=== PATIENT | female | born 1945 | race Caucasian/White ===

== ENCOUNTER → 2019-06-15 18:22 | Outpatient (CLI) | payer MEDICARE, SELFPAY ==
[2019-06-04 09:49] VITALS: BMI 26.9
--- NOTE | 2019-06-15 18:29 | CT_ITS ---
STUDY: LOW DOSE CT LUNG CANCER SCREENING REASON FOR EXAM: Female, 74 years old. 32YR SMOKER 1-2 PPD-QUIT 25YR AGO RADIATION DOSAGE (If Supplied By Facility): CTDIvol = ( 2.01 ) mGy, DLP = ( 65.70 ) mGycm TECHNIQUE: No contrast was administered. Low dose technique was utilized (average mAS-38 and kVp 120). 1.25 mm axial source images with a slice interval of 1.25-mm were reconstructed in lung windows. 2.5 mm axial source images with a slice interval of 2.5-mm were reconstructed in lung windows. 5.0 mm axial source images with a slice interval of 5.0-mm were reconstructed in soft tissue windows. Nodule measured using lung windows on PACS and/or independent workstation with automated measurement of minimum and maximum diameter. Nodule measurement reported as average diameter rounded to the nearest whole number. Growth is defined as an increase ins size of greater than 1.5 mm. COMPARISON: None. NODULES: Lungs and pleura: Both lungs are hyperinflated compatible with COPD. No visualized cystic emphysematous changes on the current study. Suspicion is slightly thickened throughout both lungs. A small irregular focus of scarring and calcification is present just beneath the pleural and apex of the left upper lobe. Clear lung william bilaterally. No acute infiltrates or nodules. No effusions. Mediastinum and pulmonary tao: No mass or adenopathy. Left coronary artery mild to moderate calcifications are present. Heart and great vessels: Normal heart size. No pericardial effusion. No aneurysms. Mild atherosclerotic calcifications of the aortic arch are present. Skeletal structures and chest wall: Unremarkable. Degenerative changes are present in the spine. Upper abdomen: Not optimized for soft tissue evaluation however no significant abnormality is visualized. CT/Low Dose CT Lung Screening IMPRESSION: 1. COPD 2. Lung-RADS category 1 - Continue annual screening with LDCT in 12 months. IMPORTANT NOTES FOR USE: ACR Lung-RADS Version 1.0 Assessment Categories Release Date: November 09, 2013 Category: Coded 0-4 bases on nodule(s) with highest degree of suspicion. Negative screen is defined as categories 1 and 2; a positive screen is defined as categories 3 and 4. Category 3 and 4A nodules that are unchanged on interval CT should be coded as category 2, and individuals returned to screening in 12 months. Category 4X: Category 3 or 4 nodules with additional imaging findings that increase the suspicion of lung cancer, such as spiculation, GGN that doubles in size in 1 year, enlarged lymph notes, etc. Category Modifiers: S (significant finding unrelated to lung cancer) and C (prior history of treated lung cancer) may be added to the 0-4 Lung-RADS Electronically Signed: Brett Cyr MD at 13:49 EST , Service support ,
== END ==
PROVIDERS: Visit Provider Internal Medicine Critical Care Medicine
DX: R05 Cough (principal); Z87.891 Personal history of nicotine dependence
CPT/HCPCS: G0297

== ENCOUNTER → 2019-06-30 08:54 | Outpatient (CLI) | payer MEDICARE, SELFPAY ==
[2019-06-04 09:49] VITALS: BMI 26.9
--- NOTE | 2019-07-01 09:22 | PFT ---
INTRODUCTION: The patient is a 74-year-old female that presents for pulmonary function studies secondary to a diagnosis of cough. Respiratory therapy reports good patient effort. Bronchodilators were used during testing. INTERPRETATION: Forced expiration spirometry demonstrates the presence of a mild large airways obstructive ventilatory defect. There was no significant response to aerosolized bronchodilators. Spirograms are of fair quality and plateau gradually indicating slow emptying of the lungs. Body plethysmography was performed and revealed an elevated TLC and RV. Diffusing capacity by single breath CO is within normal limits. IMPRESSION: Irreversible mild large airways obstructive ventilatory defect with associated hyperinflation, air trapping and preserved diffusing capacity.
== END ==
PROVIDERS: Referring Provider Internal Medicine Critical Care Medicine; Visit Provider Internal Medicine Critical Care Medicine
DX: R05 Cough (principal); Z87.891 Personal history of nicotine dependence
CPT/HCPCS: 94060; 94726; 94729

== ENCOUNTER → 2019-07-22 16:59 | Outpatient (CLI) | payer MEDICARE, SELFPAY ==
[2019-06-04 09:49] VITALS: BMI 26.9
[2019-07-22 17:17] LABS: Absolute Lymphocyte Count 1.69 X10^3/uL (0.83-4.51); Absolute Neutrophil Count 4.1 X10^3/uL (2.0-7.7); Basophil# 0.04 X10^3/uL; Basophil% 0.6 % (0-1); Eosinophil# 0.16 X10^3/uL; Eosinophils% 2.4 % (0-5); Hematocrit 39.2 % (37-47); Hemoglobin 12.5 g/dL (12.0-15.0); Lymphocyte # 1.69 X10^3/ul (4.0); Lymphocyte % 25.8 % (19-41); Mean Corp Hgb Conc 31.9 g/dL (32-36); Mean Corpuscular Hgb 27.4 pg (27.0-32.0); Mean Platelet Vol. 9.3 fl (6.2-12.0); Monocyte# 0.57 X10^3/uL; Monocyte% 8.7 % (0-10); NRBC Flagged by Analyzer 0 % (0-5); Neutrophil # 4.07 X10^3/uL (2.7-7.7); Neutrophil % 62.3 % (47-70); POSITIVE MORPHOLOGY YES; Platelet Count 325 K/mm3 (150-450); RBC Distribution Width CV 14.2 % (11.6-14.6); RBC Distribution Width SD 44.7 fl (35.1-43.9); Red Blood Count 4.56 M/mm3 (4.2-5.4); White Blood Count 6.5 K/mm3 (4.4-11.0)
[2019-07-22 17:20] LABS: Differential Indicated SCAN CRITERIA MET
[2019-07-22 17:40] LABS: Differential Comment SCANNED
[2019-07-22 17:48] LABS: AST(SGOT) 26 U/L (15-37); Alanine Aminotransfer ALT/SGPT 35 U/L (13-56); Albumin, Serum 3.9 g/dL (3.2-5.0); Alkaline Phosphatase 101 U/L (45-117); Anion Gap 6 (5-15); BUN 14 mg/dL (7-18); BUN/Creat Ratio 22.2 RATIO (10-20); CRP < 2.90 mg/L (0.0-3.0); Calcium,Total 9.4 mg/dL (8.5-10.1); Chloride 106 mmol/L (98-107); Creatinine, Serum 0.63 mg/dL (0.55-1.02); EST Glomerular Filtration Rate 98 mL/min (>60); Est Glom Filt Rate - Afr Amer 118 mL/min (>60); Globulin 3.9 g/dL (2.2-4.2); Glucose 90 mg/dL (74-106); Potassium 3.7 mmol/L (3.5-5.1); Protein, Total 7.8 g/dL (6.4-8.2); Sodium Level 138 mmol/L (136-145)
[2019-07-23 09:47] LABS: Hepatitis C Antibody Non-Reactive (Nonreactive)
== END ==
PROVIDERS: Visit Provider Family Medicine Geriatric Medicine
DX: R07.9 Chest pain, unspecified (principal); R53.83 Other fatigue; Z13.89 Encounter for screening for other disorder
CPT/HCPCS: 36415; 80053; 84443; 85025; 86140; 86803

== ENCOUNTER → 2019-07-30 13:44 | Outpatient (CLI) | payer MEDICARE, SELFPAY ==
[2019-06-04 09:49] VITALS: BMI 26.9
--- NOTE | 2019-07-30 13:48 | BI_ITS ---
MAMMOGRAPHY - BILATERAL DIAGNOSTIC REASON FOR EXAM: Female, 74 years old. Six-month follow-up examination for calcification in the right breast. PERTINENT HISTORY: Non-contributory. TECHNIQUE: Digital bilateral breast mike (3D mammographic acquisition) in the CC and MLO projections. 2-D mediolateral oblique (MLO) and craniocaudad (CC) views of both breasts were obtained. CAD: Full Field Digital Mammography with Computer Added Detection was performed. COMPARISON: Comparison is made with prior outside examination dated February 04, 2019. FINDINGS: Breast Composition: There are scattered areas of fibroglandular density. There are no dominant masses or suspicious calcifications. Stable 4.1 mm calcified nodule in the inferior central portion of the right breast in keeping with a calcified fibroadenoma. No other significant abnormalities are identified. There has been no significant change since the prior study. BI/DIAG MAMM W/CAD, BILAT IMPRESSION: Stable bilateral diagnostic mammogram. One year follow-up recommended. (A) ASSESSMENT CATEGORY: BIRADS Category 2: Benign. A letter regarding these results will be sent to the patient by the facility within 30 days. Approximately 10% of breast cancers are not detected by mammography. A normal mammogram should not delay biopsy of a clinically suspicious abnormality. Electronically Signed: Nikolay Chance, at 15:04 EST , Service support ,
== END ==
PROVIDERS: Referring Provider Family Medicine Geriatric Medicine; Visit Provider Family Medicine Geriatric Medicine
DX: N63.41 Unspecified lump in right breast, subareolar (principal)
CPT/HCPCS: 77062; 77066; G0279

== ENCOUNTER → 2019-10-07 14:09 | Outpatient (CLI) | payer MEDICARE, SELFPAY ==
[2019-06-04 09:49] VITALS: BMI 26.9
[2019-08-28 06:19] VITALS: BMI 29.5
--- NOTE | 2019-10-07 15:29 | NEURO ---
NCS and/or EMG Patient Report Ordering Doctor: Esteban Casey Chi DATE OF SERVICE: 10/07/19 Nichol Hernandez is a 74-year-old female presents for electrodiagnostic testing of the upper limbs. She reports numbness and tingling in both hands, worse on the left side. Electrodiagnostic findings: Right median motor nerve demonstrates prolonged distal latency with reduced amplitude and conduction velocity. Left median motor nerve demonstrates prolonged distal latency with normal amplitude and reduced conduction velocity. There is an approximately 60% drop in right median conduction in comparison to the left side. Ulnar motor response is normal bilaterally. Prolonged right median F-wave. Prolonged median sensory latency at the wrist bilaterally. Prolonged median palmar latency bilaterally. On needle EMG, all muscles tested in the upper limb showed no evidence of denervation with normal motor unit action potentials. Electrodiagnostic assessment: This is an abnormal study in the upper limbs 1. Electrodiagnostic findings demonstrate bilateral median mononeuropathy. This is consistent with a moderate left carpal tunnel syndrome and an advanced right carpal tunnel syndrome. 2. No electrodiagnostic evidence is noted for cubital tunnel syndrome. 3. No electrodiagnostic evidence noted for cervical radiculopathy. If there are any further questions, please do not hesitate to contact me.
== END ==
PROVIDERS: PCP Family Medicine Geriatric Medicine; Referring Provider Family Medicine Geriatric Medicine; Visit Provider Family Medicine Geriatric Medicine
DX: R20.0 Anesthesia of skin (principal)
CPT/HCPCS: 95886; 95912

== ENCOUNTER 2019-12-24 12:30 | Outpatient (RCR) | payer MEDICARE, SELFPAY ==
[2019-08-28 06:19] VITALS: BMI 29.5
--- NOTE | 2019-09-16 13:50 | HP.PTEVAL ---
Patient's Visit Information YOBANI QUINTANILLA is a 74 year old F referred to Physical Therapy by Esteban Casey MD with a diagnosis of Shoulder and Hip Pain. Date of Evaluation: 09/16/19 Physical Therapist: Blanca Germain DPT - Visit Plan Frequency: 2x /Week Duration: 4 Weeks Plan: Focus on scapular and core strength/ stabilization with UE and LE strengthening as well - Subjective Findings: Patient reports that she has lots of aches and pains and mobility problems. Pain is loated in bilateral shoulder- down the to the elbow, left hip and bilateral knees. She feels that water therapy will help. She has pain with reaching overhead and feels they lock up on her- she has to go really slow and help with the other hand. This issue has been going on for a very long time. Has never done PT before for this issue. She had surgery on the right knee and then PT after. Worst: 03/24 Agg: sitting for to long or getting in/out of the car. Once she is moving she is better. Sleep: couch- so she wakes up to go to the bathroom- pain does not wake her throughout the night. Does sleep with a pillow between her knees. She has N/T in her right hand which has started in the last 6-8 weeks- after a massage- comes and goes. Best: 07/24 Eases: topicals. Pain is located in the joint and then radiates into the muscle around the joint. Has lots of creaking and crunching. X-rays- showed OA. No car accidents of injury. No SUAREZ, blurred vision, or dizziness. No change in bowel or bladder. No N/T in the LE. Feels like her pain is impacted by 60-70%. Goals: get moving with less pain, garden. PMHx: skin cancer Meds: none- does not do any over the counter pain medication - Objective Posture: FH, RS, increased kyphosis. Gait: antalgic- decreased miguel and hip drop bilaterally in stance phase. SLS: 10 sec bilaterally. HR/TR: able without incidence. ROM: Cervical: Diminished by 50% in all planes-Lumbar: WFL in all planes, Shoulder: flexion: 100 degrees, Abduction: 90 degrees IR: pocket ER: 40 degrees- clunking and popping of the shoulders when above 90 degrees and reports pain and locking Elbow:WNL, Wrist: WNL. Hip: right: WNL Left: IR/ER: diminished by 50% with pain, Knee: 0-115 degrees bilaterally, Ankle: WNL. Strength: Scap and Core: fair minus, Shoulder: 4+/5 in 90/90 isometric testing, Hip: 4+/5 throughout isometric testing, Knee: 4+/5, Ankle: 5/5. Flex: HS: moderate, Gastroc: moderate - Goals Goal 1:: Patient will be I with HEP and progression Goal Time Frame: 4-6 Weeks Goal 2:: Patient will maintain proper posture t/o tx session to demo increased core and scapular s/s Goal Time Frame: 4-6 Weeks Goal 3:: Patient will ambulate >300 feet with a normalized pattern Goal Time Frame: 4-6 Weeks Goal 4:: Patient will report no more than 5/10 pain for 1 week Goal Time Frame: 4-6 Weeks - Rehabilitation Potential Physical Therapy Diagnosis: Patient presents with hypomobility- she has decreased ROM, strength, flex and muscular endurance leading to increased pain with ADL's. Rehabilitation Potential: Good - Anticipated Interventions Patient/Client Instruction: Educate patient on: Benefits of Fitness Program Therapeutic Exercise to Include: Strength training, Endurance training, Body mechanics, Postural training, Flexibilty training, Gait and locomotor training, In an aquatic setting, Passive ROM, Active ROM, Dynamic Lumbar Stabilization, Scapular Strength/Stabilization For the Purpose of:: To improve muscle performance and motor function Thank you for the opportunity to evaluate your patient. For Medicare and Medicare HMO plans, please review the plan of care and approve it. It will need to be FAXED BACK to us at [phone] for Medicare purposes. For Medicare only, by signing this I certify the plan of care. Please let me know if there are questions or concerns regarding this plan of care. Physician Signature: Date:
--- NOTE | 2019-10-26 13:30 | HP.PTREVAL ---
Esteban Casey MD, It has been my pleasure to treat YOBANI QUINTANILLA over the last 11 visits for Shoulder and Hip Pain. Please see the progress note below for an update on the physical therapy plan of care! Subjective: ot somewhat better in the pool. I am bad at homework. Feels about 40% better. Can now go up the steps reciprocally iwth rail at home which she could not do prior without hip buckling. Pain in hip over weekend was 4/10 at times. Soulders are pretty good. Reaching for objects is better into her deep fridge. Still hurts to reach into fridge. Sometimes hurts to get dressed at times. Taking shirts off normally can be challenging. Does not want surgery and is trying to avoid at shoulder adn hip. Objective/Function: 100 degrees flexiona dn abd B shoulder and hesitant after that, PROM 130 degrees B shoulder elevation. Walks normal and steps normal with one rail with focus. progressing nicely toward goals and willing to consider intermission coordinator I in pool vs land ex for exit strategy for next recheck. Plan Plan: 2x/week for 4 weeks for continuation of pool exercises toward I. Please add OH shoulder ROM, strength ex to tolerance and encourage compliance with HEP. Work to I in pool whcih patient says is realistic. New goals and fair prognosis Goals Goal 1:: Patient will be I with HEP and progression Goal Time Frame: 4-6 Weeks Goal Progress: noncompliant Goal 2:: Patient will maintain proper posture t/o tx session to demo increased core and scapular s/s Goal Time Frame: 4-6 Weeks Goal Progress: Goal Met Goal 3:: Patient will ambulate >300 feet with a normalized pattern Goal Time Frame: 4-6 Weeks Goal Progress: Goal Met Goal 4:: Patient will report no more than 5/10 pain for 1 week Goal Time Frame: 4-6 Weeks Goal Progress: Goal Met Goal 5:: Pt feel 70% better overall. Goal Time Frame: 2-4 Weeks Goal Progress: NEW GOAL Goal 6:: Reach into refrigerator without hesitation Goal Time Frame: 2-4 Weeks Goal Progress: NEW GOAL Anticipated Interventions Patient/Client Instruction: Educate patient on: Benefits of Fitness Program Therapeutic Exercise to Include: Strength training, Endurance training, Body mechanics, Postural training, Flexibilty training, Gait and locomotor training, In an aquatic setting, Passive ROM, Active ROM, Dynamic Lumbar Stabilization, Scapular Strength/Stabilization For the Purpose of:: To improve muscle performance and motor function Please do not hesitate to contact me at [phone] by phone or if you have questions or concerns regarding this new plan of care! Sincerely, Clif Guthrie, DPT, OCS, CSCS
--- NOTE | 2019-11-25 13:46 | HP.PTREVAL ---
Dr. Esteban Casey MD, It has been my pleasure to treat YOBANI QUINTANILLA over the last 20 visits for Shoulder and Hip Pain. Please see the progress note below for an update on the physical therapy plan of care! Subjective: I was good most of day yesterday until LB and knees hurt later in day. Would like to work in water on strength and flexibility. Overall feels like she is moving better adn steps are easier although still one at a time at times. Can go reciprocallya t times. Shoulders are better but still gets stuck reaching top shelf at times. Has cardioglide , minitramp and light db and pulleys. Objective/Function: FGA is slightly below average for her age. UE AROM to 90 degrees elevation and 3+/5 strength bridgett vailable flexion ROM, elbows 4-. Steps are reciprocal with one rail safety, eccentric lowering is poor. No c/o unusual pain with activities. Overall improoving pain and movement in certain ROM in pool and now appropriate for out of pool learning for ROM UE, strength with bodyweight LE and balance. Fair prognosis Plan Plan: 2x/week for 4 weeks for ... Pt to continue pool ex herself once pool reopens...in the meantime, please work on. 1. UE elevation ROM with mobs and pulleys and strength in elevated psoition to HEP. 2. Balance with head movements and turns to safe HEP. 3. LE strength and progress to HEP home vs gym. Goals Goal 1:: 45 score on LEFS to improve mobility. Goal Time Frame: 4-6 Weeks Goal Progress: NEW GOAL Goal 2:: 25/30 FGA to limit fall risk and improve LE mobility. Goal Time Frame: 4-6 Weeks Goal Progress: Goal Met Goal 3:: 130 degrees shoulder elevation without pain to reach into cupboard easier. Goal Time Frame: 4-6 Weeks Goal Progress: NEW GOAL Goal 4:: I home/gym based HEP to compliment I water program. Goal Time Frame: 4-6 Weeks Goal Progress: NEW GOAL Goal 5:: Pt feel 70% better overall. Goal Time Frame: 2-4 Weeks Goal Progress: Progressing 60%., approp Goal 6:: Reach into refrigerator without hesitation Goal Time Frame: 2-4 Weeks Goal Progress: Inconsistent, approp Anticipated Interventions Patient/Client Instruction: Educate patient on: Benefits of Fitness Program Therapeutic Exercise to Include: Strength training, Endurance training, Body mechanics, Postural training, Flexibilty training, Gait and locomotor training, In an aquatic setting, Passive ROM, Active ROM, Dynamic Lumbar Stabilization, Scapular Strength/Stabilization For the Purpose of:: To improve muscle performance and motor function Please do not hesitate to contact me at [phone] by phone or if you have questions or concerns regarding this new plan of care! Sincerely, Clif Guthrie, DPT, OCS, CSCS
--- NOTE | 2020-03-31 12:31 | HP.PTDCSUM ---
It has been my pleasure to treat YOBANI QUINTANILLA referred by Dr. Esteban Casey MD, with the diagnosis of Shoulder and Hip Pain for a total of 28 visit(s). Discharge Date: 12/24/19 Please see the following information for a summary of their discharge status. Subjective: Signed up at [facility] for classes for senior stretch adn mat workout. Did yoga class. Workout here is good. Has not been in pool. Shoulder pain varies 0-3 wirh reaching. Knees have been cranky. L hip Pain Intensity (Out of 10): 1 B SHoulders/ UEs Pain Intensity (Out of 10): 0 Lumbar Spine Pain Intensity (Out of 10): 1 BLEs Pain Intensity (Out of 10): 2 % Improvement: 50 Objective/Function: 110 AROM slow in B shoulders and sore. This is not improving. Balance and gait are better but still with some wide DANIELLE in gait. Pain is improving slowly. See goals Goal 1:: 45 score on LEFS to improve mobility. Goal Progress: Not Progressing Goal 2:: 25/30 FGA to limit fall risk and improve LE mobility. Goal Progress: Goal Met Goal 3:: 130 degrees shoulder elevation without pain to reach into cupboard easier. Goal Progress: Not Progressing Goal 4:: I home/gym based HEP to compliment I water program. Goal Progress: Goal Met Goal 5:: Pt feel 70% better overall. Goal Progress: Not Progressing Goal 6:: Reach into refrigerator without hesitation Goal Progress: Not Progressing Plan: d/c If there are questions or concerns regarding this patient's physical therapy, please feel free to call me at [phone]. Thank you for the referral of this patient. Sincerely, Clif Guthrie, DPT, OCS, CSCS
== END 2019-12-24 19:00 | disposition home or self-care (01) ==
LOC: PT 12:30
PROVIDERS: PCP Family Medicine Geriatric Medicine; Referring Provider Family Medicine Geriatric Medicine; Visit Provider Family Medicine Geriatric Medicine
DX: M19.90 Unspecified osteoarthritis, unspecified site (principal)
CPT/HCPCS: 97110; 97113; 97162; 97164

== ENCOUNTER → 2020-09-13 11:58 | Outpatient (CLI) | payer MEDICARE, SELFPAY ==
[2019-08-28 06:19] VITALS: BMI 29.5
[2020-09-13 12:27] LABS: Absolute Lymphocyte Count 1.74 X10^3/uL (0.83-4.51); Basophil# 0.04 X10^3/uL; Basophil% 0.8 % (0-1); Eosinophil# 0.06 X10^3/uL; Eosinophils% 1.1 % (0-5); Hematocrit 39.8 % (37-47); Hemoglobin 12.3 g/dL (12.0-15.0); Lymphocyte # 1.74 X10^3/ul (4.0); Lymphocyte % 32.7 % (19-41); Mean Corp Hgb Conc 30.9 g/dL (32-36); Mean Corpuscular Volume 90.5 fL (81-99); Mean Platelet Vol. 9.4 fl (6.2-12.0); Monocyte# 0.49 X10^3/uL; Monocyte% 9.2 % (0-10); NRBC Flagged by Analyzer 0 % (0-5); Neutrophil # 2.97 X10^3/uL (2.7-7.7); Neutrophil % 55.8 % (47-70); Platelet Count 382 K/mm3 (150-450); RBC Distribution Width CV 13.9 % (11.6-14.6); RBC Distribution Width SD 45.8 fl (35.1-43.9); White Blood Count 5.3 K/mm3 (4.4-11.0)
[2020-09-13 12:39] LABS: Erythrocyte Sedimentation Rate 21 mm/hr (0-30)
[2020-09-13 12:59] LABS: AST(SGOT) 35 U/L (15-37); Alanine Aminotransfer ALT/SGPT 37 U/L (13-56); Albumin, Serum 3.9 g/dL (3.2-5.0); Alkaline Phosphatase 99 U/L (45-117); Anion Gap 9 (5-15); BUN 12 mg/dL (7-18); BUN/Creat Ratio 18.2 RATIO (10-20); CRP < 2.90 mg/L (0.0-3.0); Calcium,Total 9.4 mg/dL (8.5-10.1); Chloride 106 mmol/L (98-107); Creatinine, Serum 0.66 mg/dL (0.55-1.02); EST Glomerular Filtration Rate 93 mL/min (>60); Est Glom Filt Rate - Afr Amer 112 mL/min (>60); Glucose 95 mg/dL (74-106); Potassium 3.7 mmol/L (3.5-5.1); Protein, Total 7.9 g/dL (6.4-8.2); Sodium Level 140 mmol/L (136-145); Thyroid Stim Hormone (TSH) 1.34 uIU/mL (0.358-3.74)
== END ==
PROVIDERS: PCP Family Medicine Geriatric Medicine; Visit Provider Family Medicine Geriatric Medicine
DX: E55.9 Vitamin D deficiency, unspecified (principal); R53.83 Other fatigue; N39.0 Urinary tract infection, site not specified
CPT/HCPCS: 36415; 80053; 82306; 84443; 85025; 85652; 86140; 87086; 87088

== ENCOUNTER → 2020-09-22 15:00 | Outpatient (CLI) | payer MEDICARE, SELFPAY ==
[2019-08-28 06:19] VITALS: BMI 29.5
--- NOTE | 2020-09-22 15:03 | BI_ITS ---
MAMMOGRAPHY - BILATERAL SCREENING REASON FOR EXAM: Female, 75 years old. Routine annual screening examination. PERTINENT HISTORY: PAT 1ST COUSIN HAD BREAST CA RT LATERAL TENDERNESS X COUPLE YRS NO PREV SX BILAT FROZEN SHOULDERS BEST FILMS POSSIBLE TECHNIQUE: Digital bilateral breast oscar (3D mammographic acquisition) in the CC and MLO projections. 2-D mediolateral oblique (MLO) and craniocaudad (CC) views of both breasts were obtained. CAD: Full Field Digital Mammography with Computer Added Detection was performed. COMPARISON: 07/30/2019 and 01/05/2019. FINDINGS: Breast Composition: There are scattered areas of fibroglandular density. There are no dominant masses or suspicious calcifications. No other significant abnormalities are identified. BI/SCRN MAMM (CAD)W/OSCAR BILAT IMPRESSION: Stable bilateral screening mammogram. Yearly follow-up mammogram recommended. (A) ASSESSMENT CATEGORY: BIRADS Category 2: Benign. A letter regarding these results will be sent to the patient by the facility within 30 days. Approximately 10% of breast cancers are not detected by mammography. A normal mammogram should not delay biopsy of a clinically suspicious abnormality. [id number] Electronically Signed: Lucio Lozano MD at 16:57 EST Tel , Service support ,
== END ==
PROVIDERS: PCP Family Medicine Geriatric Medicine; Referring Provider Family Medicine Geriatric Medicine; Visit Provider Family Medicine Geriatric Medicine
DX: Z12.31 Encounter for screening mammogram for malignant neoplasm of breast (principal)
CPT/HCPCS: 77063; 77067

== ENCOUNTER → 2020-10-14 11:40 | Outpatient (CLI) | payer MEDICARE, SELFPAY ==
[2019-08-28 06:19] VITALS: BMI 29.5
--- NOTE | 2020-10-14 12:02 | RAD_ITS ---
STUDY: X-RAY - LEFT SHOULDER REASON FOR EXAM: Female, 75 years old. PAIN TECHNIQUE: 3 view(s) of the shoulder. COMPARISON: None. FINDINGS: There is severe degenerative arthrosis of the glenohumeral articulation. Normal acromioclavicular joint. Normal acromion. Normal humeral head and visualized proximal humerus. The soft tissue structures are unremarkable. Normal visualized pulmonary apex. Atherosclerosis of the thoracic aorta. RAD/Shoulder min 2 Views IMPRESSION: Severe glenohumeral joint arthrosis. Electronically Signed: Ronnell Swanson MD ([place]) at 19:28 EDT , Service support ,
--- NOTE | 2020-10-14 12:02 | RAD_ITS ---
STUDY: X-RAY - RIGHT SHOULDER REASON FOR EXAM: Female, 75 years old. PAIN TECHNIQUE: 3 view(s) of the shoulder. COMPARISON: None. FINDINGS: There is severe degenerative arthrosis of the glenohumeral articulation. Normal acromioclavicular joint. Normal acromion. Normal humeral head and visualized proximal humerus. The soft tissue structures are unremarkable. Normal visualized pulmonary apex. Atherosclerosis of the thoracic aorta. RAD/Shoulder min 2 Views IMPRESSION: Severe glenohumeral joint arthrosis. Electronically Signed: oRnnell Swanson MD ([place]) at 19:28 EDT , Service support ,
--- NOTE | 2020-10-14 12:02 | RAD_ITS ---
STUDY: X-RAY - PELVIS AND LEFT HIP REASON FOR EXAM: Female, 75 years old. PAIN TECHNIQUE: 3 views of the pelvis and hip. COMPARISON: None. FINDINGS: There is a non-specific bowel gas pattern. Normal visualized soft tissue structures. Degenerative changes of the lumbosacral spine. Normal bilateral iliac wings, sacroiliac joints and visualized sacrum. Normal bilateral superior and inferior pubic rami. There is narrowing with sclerosis of the pubic symphysis. Normal bilateral ischial tuberosities. There are osteoarthritic changes of the femoral head with marginal osteophyte formation. Subcortical cysts of the acetabulum and head. There is osteoarthritic spur formation of the acetabular rim. There is moderate articular joint space narrowing of the hip. RAD/HIP, UNI W/ Pelvis 2-3 Views IMPRESSION: Left hip osteoarthrosis. Electronically Signed: Ronnell Swanson MD ([place]) at 19:29 EDT , Service support ,
--- NOTE | 2020-10-14 12:20 | RAD_ITS ---
STUDY: X-RAY - LUMBAR SPINE REASON FOR EXAM: Female, 75 years old. PAIN TECHNIQUE: 2 view(s) of the lumbar spine were obtained. COMPARISON: None FINDINGS: No acute fracture, dislocation or osseous destruction. Minimal levoscoliosis. Lumbar lordosis maintained. Moderate intervertebral disc height loss. Mild endplate spondylosis. Moderate facet joint arthrosis. Mild neural foraminal narrowing. No significant soft tissue swelling. Vascular calcifications. RAD/Lumbar Spine 2 or 3 Views IMPRESSION: Lumbar spine intact with mild/moderate osteoarthritis Electronically Signed: Clif Arroyo DO at 8:42 EDT Tel , Service support ,
== END ==
PROVIDERS: PCP Family Medicine Geriatric Medicine; Referring Provider Family Medicine Geriatric Medicine; Visit Provider Family Medicine Geriatric Medicine
DX: M25.511 Pain in right shoulder (principal); M25.512 Pain in left shoulder; M54.9 Dorsalgia, unspecified; M25.552 Pain in left hip
CPT/HCPCS: 72100; 73030; 73502

== ENCOUNTER → 2021-11-16 | Outpatient (CLI) | payer MEDICARE, SELFPAY ==
--- NOTE | 2021-11-16 09:43 | BI_ITS ---
MAMMOGRAPHY - BILATERAL SCREENING REASON FOR EXAM: Female, 76 years old. Routine annual screening examination. PERTINENT HISTORY: Non-contributory. TECHNIQUE: Digital bilateral breast oscar (3D mammographic acquisition) in the CC and MLO projections. 2-D mediolateral oblique (MLO) and craniocaudad (CC) views of both breasts were obtained. CAD: Full Field Digital Mammography with Computer Added Detection was performed. COMPARISON: Comparison is made with prior study dated 09/22/2020 and 07/30/2019. FINDINGS: Breast Composition: There are scattered areas of fibroglandular density. There are no dominant masses or suspicious calcifications. Stable 4 mm calcified nodule in the inferior central portion of the right breast No other significant abnormalities are identified. There has been no significant change since the prior study. BI/SCRN MAMM (CAD)W/OSCAR BILAT IMPRESSION: Stable bilateral screening mammogram. Yearly follow-up mammogram recommended. (A) ASSESSMENT CATEGORY: BIRADS Category 2: Benign. A letter regarding these results will be sent to the patient by the facility within 30 days. Approximately 10% of breast cancers are not detected by mammography. A normal mammogram should not delay biopsy of a clinically suspicious abnormality. [id number] Electronically Signed: Nikolay Chance MD at 10:41 EDT ,
== END | disposition home or self-care (01) ==
LOC: OPBI 09:41
PROVIDERS: PCP Family Medicine Geriatric Medicine; Visit Provider Family Medicine Geriatric Medicine
DX: Z12.31 Encounter for screening mammogram for malignant neoplasm of breast (principal)
CPT/HCPCS: 77063; 77067

== ENCOUNTER → 2021-11-24 | Outpatient (CLI) | payer MEDICARE, SELFPAY ==
[2021-11-24 12:37] LABS: Absolute Lymphocyte Count 1.35 X10^3/uL (0.83-4.51); Absolute Neutrophil Count 3.2 X10^3/uL (2.0-7.7); Basophil# 0.05 X10^3/uL; Eosinophil# 0.09 X10^3/uL; Eosinophils% 1.7 % (0-5); Hematocrit 39.3 % (37-47); Hemoglobin 12.8 g/dL (12.0-15.0); Lymphocyte # 1.35 X10^3/ul (0.83-4.51); Lymphocyte % 26.2 % (19-41); Mean Corp Hgb Conc 32.6 g/dL (32-36); Mean Corpuscular Hgb 28.4 pg (27.0-32.0); Mean Corpuscular Volume 87.3 fL (81-99); Mean Platelet Vol. 9.7 fl (6.2-12.0); Monocyte# 0.48 X10^3/uL; Monocyte% 9.3 % (0-10); NRBC Flagged by Analyzer 0 % (0-5); Neutrophil # 3.17 X10^3/uL (2.7-7.7); Neutrophil % 61.6 % (47-70); Platelet Count 366 K/mm3 (150-450); RBC Distribution Width CV 13.3 % (11.6-14.6); RBC Distribution Width SD 42.5 fl (35.1-43.9); White Blood Count 5.2 K/mm3 (4.4-11.0)
[2021-11-24 13:01] LABS: AST(SGOT) 30 U/L (15-37); Alanine Aminotransfer ALT/SGPT 35 U/L (13-56); Albumin, Serum 3.8 g/dL (3.2-5.0); Alkaline Phosphatase 107 U/L (45-117); Anion Gap 9 (5-15); BUN 16 mg/dL (7-18); BUN/Creat Ratio 28.7 RATIO (10-20); Calcium,Total 9.6 mg/dL (8.5-10.1); Chloride 106 mmol/L (98-107); Creatinine, Serum 0.56 mg/dL (0.55-1.02); EST Glomerular Filtration Rate 112 mL/min (>60); Est Glom Filt Rate - Afr Amer 136 mL/min (>60); Globulin 3.8 g/dL (2.2-4.2); Glucose 111 mg/dL (74-106); Potassium 3.9 mmol/L (3.5-5.1); Protein, Total 7.6 g/dL (6.4-8.2); Sodium Level 137 mmol/L (136-145); Thyroid Stim Hormone (TSH) 1.09 uIU/mL (0.358-3.74)
== END | disposition home or self-care (01) ==
LOC: POLAB3 11:38
PROVIDERS: PCP Family Medicine Geriatric Medicine; Visit Provider Family Medicine Geriatric Medicine
DX: R53.83 Other fatigue (principal); E55.9 Vitamin D deficiency, unspecified
CPT/HCPCS: 36415; 80053; 82306; 84443; 85025

== ENCOUNTER → 2022-11-30 | Outpatient (CLI) | payer MEDICARE, SELFPAY ==
[2022-11-30 12:56] LABS: Absolute Lymphocyte Count 1.67 X10^3/uL (0.83-4.51); Absolute Neutrophil Count 3.8 X10^3/uL (2.0-7.7); Basophil# 0.06 X10^3/uL; Eosinophil# 0.09 X10^3/uL; Eosinophils% 1.5 % (0-5); Hematocrit 44.3 % (37-47); Hemoglobin 14.1 g/dL (12.0-15.0); Lymphocyte # 1.67 X10^3/ul (0.83-4.51); Lymphocyte % 26.9 % (19-41); Mean Corp Hgb Conc 31.8 g/dL (32-36); Mean Corpuscular Hgb 28.6 pg (27.0-32.0); Mean Corpuscular Volume 89.9 fL (81-99); Mean Platelet Vol. 9.9 fl (6.2-12.0); Monocyte# 0.58 X10^3/uL; Monocyte% 9.4 % (0-10); NRBC Flagged by Analyzer 0 % (0-5); Neutrophil # 3.79 X10^3/uL (2.7-7.7); Platelet Count 365 K/mm3 (150-450); RBC Distribution Width CV 13.5 % (11.6-14.6); RBC Distribution Width SD 44.2 fl (35.1-43.9); Red Blood Count 4.93 M/mm3 (4.2-5.4); White Blood Count 6.2 K/mm3 (4.4-11.0)
[2022-11-30 13:11] LABS: Vitamin D,25 Hydroxy 66.7 ng/mL
[2022-11-30 13:26] LABS: AST(SGOT) 33 U/L (15-37); Alanine Aminotransfer ALT/SGPT 30 U/L (13-56); Alkaline Phosphatase 109 U/L (45-117); Anion Gap 6 (5-15); BUN 15 mg/dL (7-18); BUN/Creat Ratio 24.5 RATIO (10-20); Calcium,Total 9.6 mg/dL (8.5-10.1); Chloride 104 mmol/L (98-107); Creatinine, Serum 0.61 mg/dL (0.55-1.02); EST Glomerular Filtration Rate 100 mL/min (>60); Est Glom Filt Rate - Afr Amer 121 mL/min (>60); Glucose 80 mg/dL (74-106); Sodium Level 137 mmol/L (136-145); Thyroid Stim Hormone (TSH) 1.42 uIU/mL (0.358-3.74)
== END | disposition home or self-care (01) ==
PROVIDERS: PCP Family Medicine Geriatric Medicine; Visit Provider Family Medicine Geriatric Medicine
DX: R53.83 Other fatigue (principal); E55.9 Vitamin D deficiency, unspecified
CPT/HCPCS: 36415; 80053; 82306; 84443; 85025

== ENCOUNTER → 2022-12-12 | Outpatient (CLI) | payer MEDICARE, SELFPAY ==
--- NOTE | 2022-12-12 08:59 | AAAS_ITS ---
Reason For Study: Screening Aorta Measurements Aorta Doppler Measurements Proximal aorta measures2.45 x 2.41cm. in cross- Peak systolic flow velocities within the proximal sectional axis. aorta measure 65.6 cm/sec. Proximal aorta measures2.33cm. in longitudinal Peak systolic flow velocities within the mid aorta axis. measure 68.9 cm/sec. Mid aorta measures1.91 x 1.94cm. in cross- Peak systolic flow velocities within the distal sectional axis. aorta measure 65.0 cm/sec. Mid aorta measures1.93cm. in longitudinal axis. Distal aorta measures1.46 x 1.54cm. in cross- sectional axis. Distal aorta measures1.43cm. in longitudinal axis. Left Iliac Artery Left iliac artery measures 0.94 x 0.94 cm. in the cross-sectional axis. Left iliac artery measures 0.91 cm. in the longitudinal axis. Peak systolic velocity in the left iliac artery measures 163.0 cm/sec. Right Iliac Artery Right iliac artery measures 0.90 x 0.89 cm. in the cross-sectional axis. Right iliac artery measures 0.91 cm. in the longitudinal axis. Peak systolic velocity in the right iliac artery measures 83.8 cm/sec. Procedure Aorta IVC Iliac vasculature or bypass grafts [id number]. The exam was diagnostic. Exam performed in department. VL/AAA Screening Interpretation Summary Aorta patent, normal caliber Bilateral iliac arteries patent, normal caliber Ordering Physician: Esteban Casey Chi Referring Physician: Esteban Casey Chi Performed By: Pierre Adam, RVT
--- NOTE | 2022-12-12 09:38 | BI_ITS ---
MAMMOGRAPHY - BILATERAL SCREENING REASON FOR EXAM: Female, 77 years old. Routine annual screening examination. PERTINENT HISTORY: Non-contributory. TECHNIQUE: Digital bilateral breast oscar (3D mammographic acquisition) in the CC and MLO projections. 2-D mediolateral oblique (MLO) and craniocaudad (CC) views of both breasts were obtained. CAD: Full Field Digital Mammography with Computer Added Detection was performed. COMPARISON: Comparison is made with prior examination dated November 16, 2021 and September 22, 2020. FINDINGS: Breast Composition: There are scattered areas of fibroglandular density. There are no dominant masses or suspicious calcifications. Stable 4 mm calcified nodule in the inferior central portion of the right breast. No other significant abnormalities are identified. There has been no significant change since the prior study. BI/SCRN MAMM (CAD)W/OSCAR BILAT IMPRESSION: Stable bilateral screening mammogram. Yearly follow-up mammogram recommended. (A) ASSESSMENT CATEGORY: BIRADS Category 2: Benign. A letter regarding these results will be sent to the patient by the facility within 30 days. Approximately 10% of breast cancers are not detected by mammography. A normal mammogram should not delay biopsy of a clinically suspicious abnormality. [id number] Electronically Signed: Nikolay Chance MD at 10:30 EDT ,
== END | disposition home or self-care (01) ==
LOC: OPBI 08:46
PROVIDERS: PCP Family Medicine Geriatric Medicine; Referring Provider Family Medicine Geriatric Medicine; Visit Provider Family Medicine Geriatric Medicine
DX: Z12.31 Encounter for screening mammogram for malignant neoplasm of breast (principal); Z13.89 Encounter for screening for other disorder
CPT/HCPCS: 76706; 77063; 77067

== ENCOUNTER → 2023-03-21 | Outpatient (CLI) | payer MEDICARE, SELFPAY ==
--- NOTE | 2023-03-21 12:47 | ECHOD_ITS ---
Reason For Study: Chest Pain on Exertion Procedure This was a 2D Doppler, Color Flow transthoracic echocardiogram. Exam performed in department. Left Ventricle Normal left ventricle. Left ventricular systolic function is normal. The estimated ejection fraction is 65 %. Stage 1 diastolic dysfunction. No regional wall motion abnormalities noted. Right Ventricle Normal RV size. Normal systolic function. Atria Normal left atrium. Normal right atrium. Bubble contrast study negative for right to left interatrial shunt. Mitral Valve Normal mitral valve. Tricuspid Valve Normal tricuspid valve. Mild (1+) tricuspid valve insufficiency. Pulmonary artery systolic pressure is 33 mmHg. Aortic Valve Trisinus/trileaflet aortic valve. Mild focal aortic valve calcification. Pulmonic Valve Normal pulmonic valve. Great Vessels Normal aortic root. The pulmonary artery is normal size. Normal inferior vena cava. Pericardium/Pleural No pericardial effusion. Medication Performed a rapid injection of agitated mix of 9 cc saline and 1cc air to assess for atrial septal defect. MMode/2D Measurements & Calculations LVIDd: 3.8 cm IVSd: 1.1 cm Ao root diam: 2.6 cm LVIDs: 2.3 cm LVPWd: 1.1 cm RVDd: 3.6 cm FS: 41.0 % LAV(MOD-bp): 33.8 ml LVAd ap4: 18.8 cm2 SV(MOD-sp4): 26.0 ml LAV(MOD-bp) Indexed: 20.8 ml/m2 LVLd ap4: 7.2 cm LAV(MOD-sp2): 35.3 ml EDV(MOD-sp4): 40.4 ml LAV(MOD-sp4): 31.6 ml EDV(sp4-el): 41.7 ml LVAs ap4: 9.7 cm2 LVLs ap4: 5.9 cm ESV(MOD-sp4): 14.4 ml ESV(sp4-el): 13.5 ml EF(MOD-sp4): 64.4 % EF(sp4-el): 67.7 % SV(sp4-el): 28.2 ml LA A4 area: 12.6 cm2 LA dimension(2D): 3.8 cm RA A4 area: 12.0 cm2 TAPSE: 1.8 cm Time Measurements MV dec time: 0.26 sec Doppler Measurements & Calculations MV E max sha: 73.9 cm/sec Lat Peak E' Sha: 9.3 cm/sec Med Peak E' Sha: 6.7 cm/sec MV A max sha: 92.1 cm/sec E/E' lat: 7.9 E/E' med: 11.0 MV E/A: 0.80 MV dec slope: 288.0 cm/sec2 Ao V2 max: 171.0 cm/sec LV V1 max: 125.4 cm/sec Ao max P.7 mmHg LV V1 max P.3 mmHg Ao V2 mean: 117.4 cm/sec Ao mean P.3 mmHg Ao V2 VTI: 35.4 cm PA V2 max: 122.3 cm/sec TR max sha: 276.8 cm/sec TR max P.6 mmHg ECHO/Echo Complete Interpretation Summary Normal left ventricle. Left ventricular systolic function is normal. The estimated ejection fraction is 65 %. Bubble contrast study negative for right to left interatrial shunt. Stage 1 diastolic dysfunction. Ordering Physician: Esteban Casey Chi Referring Physician: Esteban Casey Chi Performed By: Opal Joe, SANAM, RVT
== END | disposition home or self-care (01) ==
LOC: CVS 12:37
PROVIDERS: PCP Family Medicine Geriatric Medicine; Referring Provider Family Medicine Geriatric Medicine; Visit Provider Family Medicine Geriatric Medicine
DX: R07.9 Chest pain, unspecified (principal)
CPT/HCPCS: 93306; A4216

== ENCOUNTER → 2023-05-21 | Outpatient (CLI) | payer MEDICARE, SELFPAY ==
--- NOTE | 2023-05-21 11:11 | SP.MBSS_ITS ---
Modified Barium Swallow Patient Information Study Date: 05/21/23 Study Time: 13:00 Direct Billable Minutes: 120 Total Minutes procedure & reportin Diagnosis: Dysphagia R13.10 Referring Physician: Esteban Casey Chi Reason for Referral: Objectively assess swallow function, assess risk for aspiration, and determine recommendations for least restrictive diet textures and compensatory strategies to improve safety of swallow. Medical History: Brenda Hernandez is a 78-year-old female with PMH including Cough, Skin cancer, HLD, Osteopenia, Nabothian cyst, LVH (left ventricular hypertrophy), GERD (takes no medication), COPD, DDD, History of tobacco abuse, and Arthritis. The patient reports swallowing difficulty characterized by sensation of supplements getting stuck, foods feeling stuck or even backing up at least 1X/week. She reports 2 choking episodes where she had to make herself vomit as she was fearful she co uldn't clear the foods. On occasion, she also reports supplements feel as if they start to go down the wrong way, so she now chews her supplements. She reports eating 1 large meal daily. She reports consuming almost no liquids as she eats. She has history of hiatal hernia per EGD completed by Dr. Ontiveros ~2 years ago. Current Diet Ordered: Regular textures / Thin liquids Dentition: WNL Mental Status: WNL Respiratory Status: Oxygenating on Room Air Penetration-Aspiration Scale Penetration-Aspiration Scale: OBJECTIVE ASSESSMENT OF SWALLOW FUNCTION (QUANTITATIVE ? PER TRIAL): PENETRATION / ASPIRATION SCALE (CARMEN): 1 = does not enter airway 2 = enters airway/above vocal folds/ejected 3 = enters airway/above vocal folds/not ejected 4 = enters airway/contacts vocal folds/ejected 5 = enters airway/contacts vocal folds/not ejected 6 = enters airway/below vocal folds/ejected 7 = enters airway/below vocal folds/not ejected despite effort 8 = enters airway/below vocal folds/no effort VIDEOFLOROSCOPIC SCALE SCORE (CARMEN): Grade I = aspiration of material that has penetrated into the laryngeal vestibule, intact cough reflex Grade II = aspiration < 10 % of the bolus, intact cough reflex Grade III = aspiration of < 10 % of the bolus, reduced cough reflex or aspiration of > 10 % of the bolus, intact cough reflex Grade IV = aspiration of > 10 % of the bolus, reduced cough reflex Penetration-Aspiration Scale Score Thin Liquid via teaspoon: Result: 1= does not enter airway Thin Liquid via teaspoon Trial 2: Result: 1= does not enter airway Thin Liquid via sequential sips: cup: Result: 1= does not enter airway [place]ahl Thick Liquid via sequential sips: cup: Result: 2= enter airway/above vocal folds/ejected (trace) Pudding via teaspoon: Result: 1= does not enter airway Comment: Esophageal screen - retention of pudding in middle esophagus. Thin Liquid via sequential sips:straw: Result: 1= does not enter airway Comment: Esophageal screen - majority of pudding retention cleared following 2 liquid washes. 1/2 Cookie: Result: 1= does not enter airway Barium Tablet: Result: 1= does not enter airway (thin water liquid wash used to take barium tablet) Comment: Esophageal screen - complete esophageal clearance. Oral Phase Labial Seal: No Labial Escape Tongue Control During Bolus Hold: Posterior escape of less than half of bolus (large sequential sips) Bolus Preparation/Mastication: Slow prolonged chewing/mashing with complete recollection (thorough mashing) Bolus Transport/Lingual Motion: Brisk tongue motion Oral Residue: Trace residue lining oral structures Pharyngeal Phase Initiation of Pharyngeal Swallow: Bolus head in pyriforms (large sequential sips) Soft Palate Elevation: No bolus between soft palate and pharyngeal wall Laryngeal Elevation: Comp. Superior move thyroid cart w/comp. apprx arytenoid cart-epig pet Anterior Hyoid Excursion: Partial anterior movement Epiglottic Movement: Complete inversion Laryngeal Vestibule Closure at Height of Swallow: Incomplete; narrow column of air/contrast in laryngeal vestibule (trace laryngeal penetration 1X - nectar thick liquids) Pharyngeal Stripping Wave: Present - complete Pharyngoesophageal Segment Opening: Complete distension and complete duration; no obstruction of flow Tongue Base Retraction: Narrow column of contrast between tongue base & post. pharyngeal wall Pharyngeal Residue: Trace residue within or on pharyngeal structures Esophageal Phase Esophageal Clearance: Esophageal retention (pudding in mid esophagus requiring 2 liquid washes to mostly clear) Diagnosis/Impression Diagnosis: Oropharyngeal swallow function grossly WNL; Esophageal dysphagia R13.14 Impression: Oropharyngeal swallow function is grossly WNL. Premature posterior loss seen with large, sequential sips; however, the patient demonstrates brisk tongue motion and good oral control of pudding and cookie. Complete laryngeal elevation resulting in good airway closure during the swallow. Trace oral and pharyngeal residues after the swallow despite patient verbalizing 2X sensation of food/drink caught in base of throat. Esophageal dysphagia with retention of pudding in mid esophagus requiring 2 liquid washes to clear. The patient has CP-bar at the level of C4-C5, but it did not appear to impact bolus clearance. The patient reports sensation that foods back up when she is eating. [employer] suspects dysphagia is esophageal in nature rather than oropharyngeal. Will recommend GI consult. Recommendations Diet: Regular Textures (Moisten dry textures) and Thin Liquids Comment: Crush medications in puree per patient preference. Consider smaller, more frequent meals (e.g 4-5 smaller meals vs. 3 large meals). STOP meal if sensation of retention cannot be cleared with liquid washes or if feeling full. Compensatory Strategies: Small Bites, Small Sips, Slow Rate, Alternate bites/solids and sips/liquids (1:1 ratio), Sitting upright and Remain sitting upright for 30 minutes after PO intake Recommend Repeat Modified Barium Swallow: No Need for Skilled Speech Therapy Services: No Recommended Referrals: GI Consult (Retention of pudding in mid-esophagus requiring 2 liquid washes to mostly clear. Pt ok with [employer] sending study to Dr. Ontiveros.) Education Completed: 1. Described result of evaluation. Status Active ST Patient: Active Contact Information [facility] Speech Therapy:: Shavon Martinez M.A. [facility]-[employer] Speech-Language Pathologist [facility] [address] [place] [address] [email or web address] [phone]
== END | disposition home or self-care (01) ==
LOC: RAD 12:50
PROVIDERS: PCP Family Medicine Geriatric Medicine; Referring Provider Family Medicine Geriatric Medicine; Visit Provider Family Medicine Geriatric Medicine
DX: R13.10 Dysphagia, unspecified (principal)
CPT/HCPCS: 74230; 92611

== ENCOUNTER → 2023-06-05 | Outpatient (CLI) | payer MEDICARE, SELFPAY ==
--- NOTE | 2023-06-05 14:43 | CT_ITS ---
STUDY: CT CHEST WITHOUT CONTRAST REASON FOR EXAM: Female, 78 years old. Hyperlipidemia-limited chest OVER READ ONLY RADIATION DOSAGE (If Supplied By Facility): CTDIvol = ( 12.19 ) mGy, DLP = ( 170.66 ) mGycm TECHNIQUE: Transaxial imaging was performed without the administration of intravenous contrast material. Individualized dose optimization techniques were used for this CT. COMPARISON: Comparison is made with prior study dated June 15, 2019. FINDINGS: CHEST Mild degree of emphysematous changes. Focal scarring is seen in the posterior aspect of the lingular segment of the left upper lobe. There is no demonstrated pleural abnormality. There are calcifications of the coronary arteries. There are small calcified lymph nodes within the mediastinum, which are normal in size and morphology most compatible with reactive lymph hyperplasia. Calcified left hilar lymph nodes. Normal unenhanced pulmonary arteries. Atherosclerotic calcific plaques of the aortic arch. There are degenerative changes of the thoracic spine. Small hiatal hernia. CT/Limited Chest CT Cardiac Only IMPRESSION: Coronary artery calcification. Electronically Signed: Nikolay Chance MD at 12:32 EST ,
--- NOTE | 2023-06-09 12:40 | CA.SCORE ---
Calcium Scoring Date of Study:: 06/05/23 Indications Indications: Hyperlipidemia Coronary Calcium Scoring: High-resolution Computed Tomographic imaging of the chest was performed on [ ], with particular attention paid to the coronary arteries. Images from the examination were analyzed for the presence and extent of coronary artery calcification , using coronary calcium quantification software. The patient tolerated the procedure well and there were no complications. The results of the coronary calcification analysis are provided below. Findings Coronary Artery Left Main (LM): 0 Left Anterior Descending (LAD): 816 Left Circumflex (LCX): 35 Right Coronary Artery (RCA): 335 Total Agatston Score: 1,186 Percentile Ranking: Greater than 90th percentile Calcium Scoring Interpretation: Different methods to categorize the overall amount of coronary plaque. Overall amount CAC SIS Visual of coronary plaque P1 Mild -100 <2 1-2 vessels with mild amount of plaque P2 Moderate 101-300 3-4 1-2 vessels with moderate amount, 3 vessels with mild amount of plaque P3 Severe 301-999 5-7 3 vessels with moderate amount, 1 vessel with severe amount of plaque P4 Extensive >1000 >8 2-3 vessels with severe amount of plaque Calcium Score: Extensive: 2-3 vessels w/severe amount of plaque Conclusion: Extensive atherosclerotic plaquing noted in at least 2 vessels.
== END | disposition home or self-care (01) ==
PROVIDERS: PCP Family Medicine Geriatric Medicine; Referring Provider Internal Medicine Cardiovascular Disease; Visit Provider Internal Medicine Cardiovascular Disease
DX: E78.5 Hyperlipidemia, unspecified (principal); I51.7 Cardiomegaly; I10 Essential (primary) hypertension
CPT/HCPCS: 75571; 76380

== ENCOUNTER → 2023-06-10 | Outpatient (CLI) | payer MEDICARE, SELFPAY ==
--- NOTE | 2023-06-10 07:08 | CDU_ITS ---
Reason For Study: Bruit Rt. Velocities/BP Lt. Velocities/BP Prox CCA 97/15 cm/sec. Prox CCA 114/19 cm/sec. Mid CCA 78/17 cm/sec. Mid CCA 88/17 cm/sec. Dist CCA 71/16 cm/sec. Dist CCA 58/15 cm/sec. Prox ICA 59/14 cm/sec. Prox ICA 52/11 cm/sec. Mid ICA 51/16 cm/sec. Mid ICA 93/27 cm/sec. Dist ICA 76/20 cm/sec. Dist ICA 95/27 cm/sec. Rt. ICA/CCA = 1.0. Lt. ICA/CCA = 1.1. Prox ECA 73/8 cm/sec. Prox ECA 66/8 cm/sec. Rt. Vert. 53/14 cm/sec. Lt. Vert. 74/19 cm/sec. Right Extracranial There is homogeneous, smooth atherosclerotic plaque noted in the right common carotid artery. There is heterogeneous, smooth atherosclerotic plaque noted in the right internal carotid artery. The right internal carotid artery is very tortuous. There is intimal thickening but no significant atherosclerotic plaque noted in the right external carotid artery. Antegrade flow is noted in the right vertebral artery. Left Extracranial There is intimal thickening but no significant atherosclerotic plaque noted in the left common carotid artery. There is intimal thickening but no significant atherosclerotic plaque noted in the left internal carotid artery. The left internal carotid artery is very tortuous. There is homogeneous, irregular atherosclerotic plaque noted in the left external carotid artery. Antegrade flow is noted in the left vertebral artery. Procedure Carotid Duplex [id number]. This is a Carotid Duplex examination using B-mode, color flow and specral Doppler. Exam performed in department. VL/Carotid Duplex Ultrasound Interpretation Summary Mild (<50%) stenosis right extracranial internal carotid. Normal left extracranial internal carotid. Patent and antegrade vertebrals bilaterally. Ordering Physician: Edgar Tucker Referring Physician: Esteban Casey Chi Performed By: Opal Joe, SANAM, RVT
--- NOTE | 2023-06-10 16:36 | STRESSREP ---
Stress Test Report Pharmacologic myocardial perfusion stress test. 78-year-old lady with a history of chest pain Resting EKG demonstrates sinus rhythm with a rate of 70 bpm. Resting blood pressure is 152/100 mmHg. 0.4 mg of regadenoson was infused per usual protocol followed by rapid intravenous saline flush injection. Continuous EKG monitoring was performed. The maximum heart rate was 114 bpm which was 80% of max impacted heart rate the maximum workload was 1 metabolic equivalent. At rest there were no ST or T wave changes noted to suggest ischemia and at peak infusion nonspecific ST changes were noted which did not meet the criteria for ischemia. No clinical angina is noted. The final blood pressure was 178/100 mmHg. Myocardial perfusion protocol. 11 mCi of technetium 99m sestamibi was injected at rest. 0.4 mg of regadenoson was infused per usual protocol. At peak infusion 34.2 mCi of technetium 99m sestamibi was injected stress images were obtained stress and rest images were reconstructed and compared in the short axis vertical long and horizontal long axis. Gated images were also obtained. Perfusion SPECT analysis: Review of the stress images demonstrate normal uptake of tracer noted in all areas of the myocardium. The resting images similar demonstrated normal uptake of tracer noted in all areas of the myocardium. No areas of reversibility are noted to suggest ischemia and no previous infarct is noted. Gated SPECT analysis: The gated ejection fraction is 75. Conclusion: Normal pharmacologic myocardial perfusion stress test. Preserved ejection fraction.
== END | disposition home or self-care (01) ==
LOC: CVS 07:05
PROVIDERS: PCP Family Medicine Geriatric Medicine; Referring Provider Internal Medicine Cardiovascular Disease; Visit Provider Internal Medicine Cardiovascular Disease
DX: R07.9 Chest pain, unspecified (principal); R09.89 Other specified symptoms and signs involving the circulatory and respiratory systems
CPT/HCPCS: 78452; 93017; 93880; A9500; A4216; J2785

== ENCOUNTER → 2023-12-16 | Outpatient (CLI) | payer MEDICARE, SELFPAY ==
--- NOTE | 2023-12-16 14:39 | BI_ITS ---
MAMMOGRAPHY - BILATERAL SCREENING REASON FOR EXAM: Female, 78 years old. Routine annual screening examination. PERTINENT HISTORY: Non-contributory. TECHNIQUE: Digital bilateral breast oscar (3D mammographic acquisition) in the CC and MLO projections. 2-D mediolateral oblique (MLO) and craniocaudad (CC) views of both breasts were obtained. CAD: Full Field Digital Mammography with Computer Added Detection was performed. COMPARISON: Comparison is made with prior study dated December 12, 2022 and November 16, 2021. FINDINGS: Breast Composition: There are scattered areas of fibroglandular density. There are no dominant masses or suspicious calcifications. No other significant abnormalities are identified. There has been no significant change since the prior study. BI/SCRN MAMM (CAD)W/OSCAR BILAT IMPRESSION: Stable bilateral screening mammogram. Yearly follow-up mammogram recommended. (A) ASSESSMENT CATEGORY: BIRADS Category 1: Negative. A letter regarding these results will be sent to the patient by the facility within 30 days. Approximately 10% of breast cancers are not detected by mammography. A normal mammogram should not delay biopsy of a clinically suspicious abnormality. [id number] Electronically Signed: Nikolay Chance MD at 15:23 EDT ,
== END | disposition home or self-care (01) ==
PROVIDERS: PCP Family Medicine Geriatric Medicine; Referring Provider Family Medicine Geriatric Medicine; Visit Provider Family Medicine Geriatric Medicine
DX: Z12.31 Encounter for screening mammogram for malignant neoplasm of breast (principal)
CPT/HCPCS: 77063; 77067

== ENCOUNTER → 2024-01-08 | Outpatient (CLI) | payer MEDICARE, SELFPAY ==
[2024-01-08 11:28] LABS: Absolute Lymphocyte Count 1.45 X10^3/uL (0.83-4.51); Basophil# 0.06 X10^3/uL; Basophil% 1.2 % (0-1); Eosinophil# 0.16 X10^3/uL; Eosinophils% 3.1 % (0-5); Hematocrit 37.1 % (37-47); Hemoglobin 11.9 g/dL (12.0-15.0); Lymphocyte # 1.45 X10^3/ul (0.83-4.51); Lymphocyte % 28.4 % (19-41); Mean Corp Hgb Conc 32.1 g/dL (32-36); Mean Corpuscular Volume 87.3 fL (81-99); Mean Platelet Vol. 9.3 fl (6.2-12.0); Monocyte# 0.41 X10^3/uL; NRBC Flagged by Analyzer 0 % (0-5); Neutrophil # 3.01 X10^3/uL (2.7-7.7); Neutrophil % 59.1 % (47-70); Platelet Count 336 K/mm3 (150-450); RBC Distribution Width CV 13.4 % (11.6-14.6); RBC Distribution Width SD 42.8 fl (35.1-43.9); Red Blood Count 4.25 M/mm3 (4.2-5.4); White Blood Count 5.1 K/mm3 (4.4-11.0)
[2024-01-08 11:57] LABS: Vitamin D,25 Hydroxy 42.9 ng/mL
[2024-01-08 12:27] LABS: AST(SGOT) 31 U/L (15-37); Alanine Aminotransfer ALT/SGPT 25 U/L (13-56); Albumin, Serum 3.7 g/dL (3.2-5.0); Alkaline Phosphatase 95 U/L (45-117); Anion Gap 6 (5-15); BUN 10 mg/dL (7-18); BUN/Creat Ratio 20.4 RATIO (10-20); CRP 5.88 mg/L (0.0-3.0); Calcium,Total 9.2 mg/dL (8.5-10.1); Chloride 107 mmol/L (98-107); Creatinine, Serum 0.49 mg/dL (0.55-1.02); EST Glomerular Filtration Rate 129 mL/min (>60); Est Glom Filt Rate - Afr Amer 156 mL/min (>60); Globulin 3.6 g/dL (2.2-4.2); Glucose 91 mg/dL (74-106); Potassium 3.6 mmol/L (3.5-5.1); Protein, Total 7.3 g/dL (6.4-8.2); Sodium Level 141 mmol/L (136-145); Thyroid Stim Hormone (TSH) 1.42 uIU/mL (0.358-3.74)
== END | disposition home or self-care (01) ==
LOC: LAB 10:44
PROVIDERS: PCP Family Medicine Geriatric Medicine; Visit Provider Family Medicine Geriatric Medicine
DX: I10 Essential (primary) hypertension (principal); E55.9 Vitamin D deficiency, unspecified
CPT/HCPCS: 36415; 80053; 82306; 84443; 85025; 86140

== ENCOUNTER 2024-06-17 11:39 | Emergency (ER) | payer MEDICARE, SELFPAY ==
[2024-06-17 11:41] VITALS: BP 191/100; PULSE 77; RESP 18; TEMP 37.2; O2SAT 98; BMI 28.4
--- NOTE | 2024-06-17 12:28 | CT_ITS ---
STUDY: CT BRAIN WITHOUT CONTRAST REASON FOR EXAM: Female, 79 years old. Headache after a fall RADIATION DOSAGE (If Supplied By Facility): CTDIvol = ( 44.99 ) mGy, DLP = ( 846.73 ) mGycm TECHNIQUE: Transaxial CT imaging of the brain was performed without administration of intravenous contrast material. Individualized dose optimization techniques were used for this CT. COMPARISON: No relevant priors. FINDINGS: Normal soft tissue structures. Normal calvarium. There is mild cerebral atrophy with widening of the extra-axial spaces and ventricular dilatation. There are areas of decreased attenuation within the white matter tracts of the supratentorial brain, consistent with microvascular disease changes. Normal basal ganglia and thalami. Normal brainstem. There is mild cerebellar atrophy. There is no intracranial hemorrhage. There are no findings of an acute ischemic infarction. Normal visualized paranasal sinuses. CT/Brain/Head without Contrast IMPRESSION: Chronic involutional changes of the brain, no acute hemorrhage. Electronically Signed: Shaheed Ayala MD at 13:00 EST ,
--- NOTE | 2024-06-17 12:28 | CT_ITS ---
STUDY: CT CERVICAL SPINE WITHOUT CONTRAST REASON FOR EXAM: Female, 79 years old. Headache and neck pain after trauma RADIATION DOSAGE (If Supplied By Facility): CTDIvol = ( 18.94 ) mGy, DLP = ( 367.65 ) mGycm TECHNIQUE: High resolution transaxial imaging was performed without contrast material. Sagittal and coronal images were reconstructed. Individualized dose optimization techniques were used for this CT. COMPARISON: None FINDINGS: Normal craniovertebral junction. There are degenerative changes of the anterior atlantoaxial articulation. Old healed odontoid process fracture noted. Normal cervical lordosis. Bones are diffusely demineralized. There is anatomic alignment of the cervical spine from C1 to C4. There is 2 to 3 mm of posterior subluxation of C5 on C4. There is anatomic alignment between C5 and C7, and another 2 to 3 mm of posterior subluxation of T1 on C7. The subluxations are likely chronic as there is no soft tissue swelling or other evidence of acute injury. C2-3: Normal endplates. Disc space narrowing.. Normal central canal and intervertebral neuroforamina. C3-4: Normal endplates. Disc space narrowing.. Normal central canal and intervertebral neuroforamina. C4-5: Normal endplates. Disc space narrowing.. Normal central canal and intervertebral neuroforamina. C5-6: Sclerotic endplate changes with broad-based partially calcified central disc bulge and uncovertebral spurs. There is borderline central canal narrowing due to the posterior spurring with the central canal measuring 8.5 mm. There is bilateral foraminal narrowing due to facet joint hypertrophy and uncovertebral spurs. C6-7: Sclerotic endplate changes with disc space narrowing and posterior uncovertebral spurs. No central canal narrowing, there is bilateral foraminal narrowing due to facet joint hypertrophy, and uncovertebral spurs. C7-T1: Normal endplates. Normal disc height and morphology. Normal central canal and intervertebral neuroforamina. Normal visualized soft tissue structures. CT/Spine Cervical without Contras IMPRESSION: Multilevel degenerative changes, as described above. No acute findings Electronically Signed: Shaheed Ayala MD at 13:22 EST ,
--- NOTE | 2024-06-17 12:28 | CT_ITS ---
INDICATION: Chest pain after fall EXAMINATION: CT CHEST WITHOUT CONTRAST - CT Chest W/O Contrast Injection TECHNIQUE: Helically acquired images were obtained of the chest. A radiation dose optimization technique was used for this scan. IV Contrast dosage and agent: None. COMPARISON: None. FINDINGS: LUNGS, PLEURA AND LARGE AIRWAYS: Lung windows show the lungs to be mildly hyperexpanded, there is a spiculated scar versus nodule in the left upper lobe and axial image 14 measuring 1 cm. There is a calcified granuloma also in the left upper lobe and axial image 26. No organized infiltrate, or effusion, there is dependent atelectasis. THYROID: No thyroid lesions. HEART AND PERICARDIUM: Heart size is normal. No pericardial effusion. CORONARY ARTERIES: Coronary artery calcification is seen. VESSELS: Thoracic aorta is not dilated. MEDIASTINUM AND BETH: No suspicious bulky mediastinal or hilar adenopathy, there are subcentimeter in short axis dimension likely reactive/physiologic mediastinal and perihilar lymph nodes.. There is a small hiatal hernia with evidence to suspect GE reflux. UPPER ABDOMEN: No acute pathology. BONES: No suspicious lytic or blastic abnormality. Bony structures show degenerative change, no demonstrated rib or thoracic vertebral body fracture. Both glenohumeral joints of been replaced and are free of complication. CT/Chest without Contrast IMPRESSION: Lungs are hyperexpanded with chronic interstitial changes. No superimposed infiltrate or effusion. There is a fibrotic scar versus spiculated nodule in the left upper lobe on axial image 26. If there is low clinical suspicion of neoplasm and smoking history is negative, no specific follow-up would be needed. If there is strong clinical suspicion, a PET/CT scan could be performed Degenerative bony changes without acute left rib or thoracic vertebral body fracture No suspicious bulky adenopathy Replaced glenohumeral joint free of complication Electronically Signed: Shaheed Ayala MD at 13:05 EST ,
--- NOTE | 2024-06-17 12:28 | CT_ITS ---
STUDY: CT FACIAL BONES WITHOUT CONTRAST REASON FOR EXAM: Female, 79 years old. Facial pain after fall RADIATION DOSAGE (If Supplied By Facility): CTDIvol = ( 29.38 ) mGy, DLP = ( 584.19 ) mGycm TECHNIQUE: The patient was scanned in a multi detector CT scanner. Sagittal and coronal images were reconstructed. Individualized dose optimization techniques were used for this CT. COMPARISON: None. FINDINGS: There is a minimally displaced nasal fracture with associated soft tissue swelling and subcutaneous emphysema. Normal orbital leal and orbital contents. Normal remaining facial bones. There is no other demonstrated fracture. Normal visualized paranasal sinuses. CT/Sinus/Facial Bone IMPRESSION: Acute minimally displaced nasal fracture with soft tissue swelling and subcutaneous emphysema. Electronically Signed: Shaheed Ayala MD at 13:35 EST ,
[2024-06-17 13:39] VITALS: BP 188/64; PULSE 78; RESP 16; O2SAT 98
[2024-06-17] MEDS: Lidocaine/Epi/Tetracaine 50 ML 1 APPLIC TOPICAL (13:50)
--- NOTE | 2024-06-18 15:08 | ED.VIS.FALL ---
HPI HPI - Fall History of Present Illness Chief Complaint: Fall Informant: patient Narrative Narrative: Patient brought to the emergency as a rapid response team from fall in the parking lot. She was bringing her spouse in for surgery she was in a garcia and her foot got caught on the ground. She hit her head she did not pass out. Left rib pain. Bumped her knees however denies pain in it. There is bleeding to the nose. She thinks her tetanus is less than 5 years and states she does not want it updated if it was longer. Tetanus Immunization: <5 years PFSH PFSH Medical History Elevated coronary artery calcium score Squamous cell carcinoma Essential hypertension Vitamin D deficiency History of tobacco abuse Skin cancer Hyperlipidemia Osteopenia Nabothian cyst LVH (left ventricular hypertrophy) GERD (gastroesophageal reflux disease) DDD (degenerative disc disease) Arthritis Home Medications ?Medication ?Instructions ?Recorded ?Last Taken ?Type cholecalciferol (vitamin D3) 50 2,000 unit PO DAILY 06/03/19 Unknown History mcg (2,000 unit) capsule coenzyme Q10 75 mg capsule (Ultra 75 mg PO DAILY 06/03/19 Unknown History CoQ10) garlic 500 mg capsule 500 mg PO DAILY 06/03/19 Unknown History lecithin ea PO 06/03/19 Unknown History vitamin E 200 unit capsule 200 unit PO DAILY 06/03/19 Unknown History vitamin K2 40 mcg tablet 40 mcg PO DAILY 06/03/19 Unknown History ascorbic acid (vitamin C) 500 mg 1,000 mg PO DAILY 06/04/19 Unknown History capsule zinc sulfate 50 mg zinc (220 mg) 50 mg PO BID 05/06/23 Unknown History tablet amoxicillin 875 mg-potassium 875 mg PO Q12H #20 TABLETS 06/17/24 Unknown Rx clavulanate 125 mg tablet Allergy/AdvReac Type Severity Reaction Status Date / Time No Known Allergies Allergy Unverified 05/12/24 11:25 Family History Mother , Age 77 Heart disease Osteoporosis Asthma Father , Age 48 Heart disease Brother , Age 48 Esophageal cancer Sweet's disease Surgical History History of total left hip arthroplasty History of bilateral reverse prosthetic total shoulder arthroplasty History of bilateral carpal tunnel release H/O dilation and curettage S/P right knee arthroscopy Social History Smoking Status: Former smoker Tobacco: How many years used: 30 how long ago did patient quit smokin,1ppd second hand exposure: Yes ROS ROS ED Constitutional Constitutional ED: Denies chills, fever(s) or sweats Eyes Eyes: Denies change in vision ENT ENT ED: Denies dysphagia or sore throat Cardiovascular Cardiovascular: Denies chest pain, leg edema, palpitations or racing heartbeat Respiratory/Chest Respiratory/Chest: Reports other; Denies cough, dyspnea or dyspnea on exertion Gastrointestinal Gastrointestinal: Denies abdominal pain, diarrhea, nausea or vomiting Genitourinary Genitourinary ED: Denies dysuria, hematuria or urinary frequency Musculoskeletal Musculoskeletal: Reports other Details: Left lower rib pain ; Denies back pain, extremity pain or neck pain Integumentary Reports wounds; Denies rash Neurologic Neurologic: Denies headache(s), paresthesias or weakness EXAM Physical Exam Const Positive well nourished and well developed Constitutional Narrative: GCS 15 General Appearance ED: well developed and NAD HEENT Reports TM's normal bilaterally and moist mucous membranes HEENT Narrative: Abrasion across the mid nasal bridge bleeding controlled with pressure no laceration. No septal hematoma. No dried blood in the naris. No trismus of the jaw. No facial bone tenderness no proptosis or entrapment. normocephalic Eyes EOMs intact bilaterally and conjunctivae normal General Eye ED: Yes normal appearance of both eyes Neck full ROM, no lymphadenopathy and supple General: Negative for tenderness Chest Wall Chest Narrative: Tender palpation left lower anterior ribs no crepitus. Chest: tenderness Resp normal respiratory effort and normal air movement Resp Narrative: Symmetric breath sounds. Effort and Inspection: symmetric chest movement; Negative for respiratory distress Cardio regular rate, regular rhythm and no murmurs Peripheral Pulses: pulses 2+ throughout GI normal to inspection, nondistended, normoactive bowel sounds and non-tender Palpation: Negative for guarding or rebound tenderness present Back/Spine no CVA tenderness and no thoracic nor lumbar tenderness Back/Spine Narrative: No midline thoracic or lumbar tenderness. No step-offs. Extremity normal to inspection Extremity Narrative: Negative logroll of the lower extremities. Nontender patellar, soft compartments. Neuro vas intact distally. Full range of motion upper extremities. No pain or deformities. Pulses intact distally. General Extremety ED: Negative for edema or tenderness General Extremity: Negative for edema Neuro oriented x3, CN's II-XII intact bilaterally and no sensory deficits noted Sensorium / Orientation: awake and alert Skin no rashes or lesions noted and no wounds MDM MDM MDM Narrative Medical decision making narrative: Interventions / MDM: Differential diagnosis: Facial abrasion, closed head injury, chest wall contusion, facial fracture Diagnosis considered but do not suspect: Intracranial hemorrhage however CT negative. Fractures however CT negative. My EKG interpretation: N/A Imaging independently reviewed and interpreted by myself: CT brain/face/cervical spine: No intra or hemorrhage, nasal bone fracture. CT chest: No fracture noted. Reported spicule in the left upper lobe versus fibrosis. External documents reviewed: N/A Test considered but not ordered:N/A ED course: Patient declined any medicines. Mechanical fall with injury. trauma scans head face neck and chest ordered. Results significant only noting nasal bone fracture. With the abrasion across her nose discussed with patient possible open fracture. Order for antibiotics she declined in the emergency department however states she will take the prescription. She was referred to ENT. She will use Tylenol or Motrin as needed. CT chest noted fibrosis versus spicule, she is a former smoker quit back in 1993. Prior to her Discharge her nurse nurse blood from the wound, there is nothing to suture up. Initial let was placed to help with hemostasis and bandage was placed. Discharged with outpatient follow-up. All questions were answered. Re-evaluation: stable Disposition discussed with patient/family/significant other: Patient Case discussed with consulting clinician: N/A This note was generated with [employer] dictation software. It may contain incorrect words, spelling, and punctuation that were not noted in checking the note before signing. Radiography Diagnostic Testing: Clinical Impression(s) from Imaging Studies Brain CT 06/17/24 12:28 IMPRESSION: Chronic involutional changes of the brain, no acute hemorrhage. Electronically Signed: Shaheed Ayala MD at 13:00 EST Reading Location ID and State: [facility] , Service support , Cervical Spine CT 06/17/24 12:28 IMPRESSION: Multilevel degenerative changes, as described above. No acute findings Electronically Signed: Shaheed Ayala MD at 13:22 EST , Chest CT 06/17/24 12:28 IMPRESSION: Lungs are hyperexpanded with chronic interstitial changes. No superimposed infiltrate or effusion. There is a fibrotic scar versus spiculated nodule in the left upper lobe on axial image 26. If there is low clinical suspicion of neoplasm and smoking history is negative, no specific follow-up would be needed. If there is strong clinical suspicion, a PET/CT scan could be performed Degenerative bony changes without acute left rib or thoracic vertebral body fracture No suspicious bulky adenopathy Replaced glenohumeral joint free of complication Electronically Signed: Shaheed Ayala MD at 13:05 EST , Facial/Sinus 06/17/24 12:28 IMPRESSION: Acute minimally displaced nasal fracture with soft tissue swelling and subcutaneous emphysema. Electronically Signed: Shaheed Ayala MD at 13:35 EST , Discharge Plan Triage Chief Complaint: Fall ED Provider: Denver Nieves Dx/Rx/DC Orders Clinical Impression: Fracture, nasal bone, open, Contusion of face, Contusion of rib on left side, Closed head injury Instructions: ED Nose Fracture, with X-Ray, ED Head Injury (Adult), ED Rib Contusion or Minor Fracture Prescriptions: New amoxicillin-pot clavulanate 875-125 mg tablet 875 mg PO Q12H Qty: 20 0RF No Action garlic 500 mg capsule 500 mg PO DAILY vitamin K2 40 mcg tablet 40 mcg PO DAILY lecithin Granules PO cholecalciferol (vitamin D3) 2,000 unit capsule 2,000 unit PO DAILY Ultra CoQ10 75 mg capsule 75 mg PO DAILY vitamin E 200 unit capsule 200 unit PO DAILY ascorbic acid (vitamin C) 500 mg capsule 1,000 mg PO DAILY zinc sulfate 50 mg zinc (220 mg) tablet 50 mg PO BID Primary Care Provider: Esteban Casey Chi Referrals: Mazin Agustin MD [Med Staff - Active Staff] - 1-2 Weeks Esteban Casey Chi, MD [Primary Care Provider] - 1-2 Weeks Activity Restrictions/Additional Instructions: CT brain/face/cervical spine noting nasal bone fracture. Take antibiotic prescribed due to concerns for open nasal bone fracture. Your chest CT negative for any rib fracture. Follow-up with ENT for evaluation of your nose. Use Tylenol or Motrin as needed. Print Language: Yi Disposition Disposition: Home, Self Care Discharge Date/Time: 06/17/24 14:19
== END 2024-06-17 14:19 | disposition home or self-care (01) ==
PROVIDERS: Emergency Provider Emergency Medicine; PCP Family Medicine Geriatric Medicine; Visit Provider Emergency Medicine
DX: S02.2XXB Fracture of nasal bones, initial encounter for open fracture (principal); Y92.481 Parking lot as the place of occurrence of the external cause; S20.212A Contusion of left front wall of thorax, initial encounter; W18.39XA Other fall on same level, initial encounter; Y93.01 Activity, walking, marching and hiking; Y99.8 Other external cause status; Z87.891 Personal history of nicotine dependence
CPT/HCPCS: 70450; 70486; 71250; 72125; 99282

== ENCOUNTER → 2024-06-30 | Outpatient (CLI) | payer MEDICARE, SELFPAY ==
--- NOTE | 2024-06-30 10:30 | PET_ITS ---
EXAMINATION: FDG PET CT HISTORY: 79-year-old female with history of pulmonary nodularity. COMPARISON EXAMINATION: CT of the chest report 06/17/2024 TECHNIQUE: Following the intravenous administration of 14.13 mCi of F-18 deoxyglucose, via the left hand, multiplanar image acquisitions of the neck, chest, abdomen and pelvis to the level of mid thigh, obtained at one hour post radiopharmaceutical administration contemporaneously interpreted with the current CT of the neck, chest, abdomen and pelvis to the level of mid thigh, dated 06/30/2024 via coregistration reveals: BLOOD GLUCOSE LEVEL:?83 mg/dL?HEIGHT:?61 inches?WEIGHT: 143 lbs. FINDINGS: g Head/Neck: There is no evidence of abnormal increased glucose metabolism in the pharyngeal mucosal space, parapharyngeal space, bilateral-lateral and anterior neck, hypopharynx and distribution of the larynx. The visualized portion of the cerebral cortical-subcortical structures demonstrate symmetric and preserved glucose metabolism. CHEST: A calcified and noncalcified density both of which are identified in the left upper lung field, left upper lobe reveal no evidence of increased tracer uptake. No abnormal glucose metabolism is identified in the right-left pulmonary parenchyma, the bilateral hemithorax at the pleural interface, the mediastinal and thoracic perihilar structures. Pertinent chest CT findings are as follows. Coronary arterial calcification is observed. Atherosclerotic calcification is demonstrated in the thoracic aorta. Bilateral axillary soft tissue densities are nontracer avid. Calcified and noncalcified mediastinal soft tissue reveals no evidence of increased glucose uptake. Abdomen/Pelvis: Normal physiologic uptake is noted in the hepatic and splenic parenchyma. There is symmetric demonstration of the right and left kidneys, normal uptake in the urinary bladder and visualized intestinal tract. Review of CT of the abdomen and pelvis reveals the following. The uterus is retroflexed. Calcification demonstrated in the bilateral adnexal regions reveal no evidence of increased gross uptake. Atherosclerotic calcification is defined in the abdominal aorta without evidence of aneurysm. Calcified granuloma formation is noted in the hepatic and splenic parenchyma. SKELETAL: A left hip arthroplasty reveals no evidence of increased tracer uptake. Facilitated FDG concentration noted in the left anterolateral chest wall-rib is consistent with trauma-fracture. Degenerative changes reveal no evidence of quantitatively significant increased glucose uptake. Bilateral shoulder arthroplasties are scintigraphically unremarkable. PET/PET/CT Tumor Base -Thigh Init IMPRESSION: 1. NEGATIVE EXAMINATION. There is no definitive scintigraphic evidence of recurrent/metastatic viable neoplasm. 2. Enhanced uptake visualized in the left anterolateral chest wall is consistent with activated leukocytes associated with trauma-fracture. Electronic Signature Erik Page D.O. Accurate Quantification of SUVs for this report are calculated using the exclusive [employer]. ([place] Patent No. [id number] [id number] B2 [phone] [place] patent [phone]). Standardization and correction of the FDG SUV metric via [employer] technology allow for vendor non-specific objective quantitative examination comparison and optimization of the sensitivity and specificity of the FDG PET-CT examination. . [email or web address] Electronically Signed: Erik Page DO at 15:46 EST ,
== END | disposition home or self-care (01) ==
LOC: ONC 10:03
PROVIDERS: PCP Family Medicine Geriatric Medicine; Referring Provider Family Medicine Geriatric Medicine; Visit Provider Family Medicine Geriatric Medicine
DX: R91.8 Other nonspecific abnormal finding of lung field (principal)
CPT/HCPCS: 78815; A9552

== ENCOUNTER → 2024-12-18 | Outpatient (CLI) | payer MEDICARE, SELFPAY ==
--- NOTE | 2024-12-18 09:55 | BI_ITS ---
EXAM: SCRN MAMM (CAD)W/OSCAR BILAT 12/18/2024 CLINICAL HISTORY: F, Age 79 y/o , SCREENING TECHNIQUE: Bilateral screening digital breast tomosynthesis with 2D and 3D images. Computer aided detection. COMPARISON: Prior exam(s) dated 12/16/2023, 12/12/2022, 11/16/2021. FINDINGS: TISSUE DENSITY: The breast tissue is composed of scattered area of fibroglandular density. Bilateral Breast Mammographic Findings: No significant masses, calcifications or other abnormalities are identified. BI/SCRN MAMM (CAD)W/OSCAR BILAT IMPRESSION: Right Breast: BIRADS 1 NEGATIVE. Left Breast: BIRADS 1 NEGATIVE. OVERALL FINAL ASSESSMENT: BIRADS 1 NEGATIVE. RECOMMENDATION: Routine annual follow-up in 1 Year A letter with findings and recommendations will be mailed to the patient. Reading Location: [id number]
--- OUTSIDE RECORDS SUMMARY | 2024-12-18 15:02 | XMS RPT_ITS | CCD ---
Author Organization [facility] Care Team Providers Care Blood Bank Assistant Name Role Phone SHEETS, MERLY Benitez Referring Unavailable MANUELA KOENIG Referring Unavailable Cale CARTER, David Rivera Unavailable Ashley, Dr. Esteban Russell Primary Care Provider Dr. Clif Hartman Attending Provider Dr. Edgar Tucker Attending Provider 1([facility])[phone] Esteban Casey Chi Primary Care Provider 1([facility])[phone] Dr. Edgar Tucker Attending Provider Ashley, Dr. Esteban Russell Referring Provider Dr. Edgar Tucker Referring Provider Dr. Edgar Tucker Other Provider [facility] RETORT CONDENSER ATTENDANT, ANASTASIYA Holly Attending Provider Ashley, Esteban Chi Primary Care Unavailable Ashley, Esteban Chi Attending Unavailable Ashley, Esteban Chi Primary Care Unavailable Denver Nieves Attending Unavailable Ashley, Esteban Chi Referring Unavailable Ashley, Esteban Chi Primary Care Unavailable Ashley, Esteban Chi Attending Unavailable Ashley, Esteban Chi Referring Unavailable Ashley, Esteban Chi Primary Care Unavailable Stephanie Auguste NP Attending Unavailable Ashley, Esteban Chi Referring Unavailable Ashley, Esteban Chi Primary Care Unavailable Ashley, Esteban Chi Attending Unavailable Medications Current Medications Medication Drug Class(es) Dates Sig (Normalized) Sig (Original) ascorbic acid 500 mg oral capsule (8 sources) Vitamin C Start: 06-04-2019 take 1000 mg by mouth once daily Ascorbic Acid (Vitamin C) Active 1000 MG PO DAILY June 04, 2019 12:00am take 1 tablet by mouth once conor y RA VITAMIN C/JOLIE HIPS 1000 MG TABS 3 to 4 tablet by mouth daily ascorbic acid (vitamin c) [id number] Polly Henry NON DESTRUCTIVE TESTING SPECIALIST Qfoqccqtw-Uaasbrfk-Kqv-Hyalu r (Joint Health) 40-10-5-3.3 mg tablet (7 sources) Start: 06-04-2019 take 1 tablet by mouth once daily Gdnagsnqa-Wmquevxe-Sih-Hyalur (Joint Health) 40-10-5-3.3 mg tablet Active 1 TABLET PO DAILY June 04, 2019 8:42am Start: 06-04-2019 End: 05-06-2023 take 1 tablet by mouth once daily Qugbvgkwz-Sfdlvgqs-Svh-Hyalur (Joint Hea lth) 40-10-5-3.3 mg tablet Discontinued 1 TABLET PO DAILY June 04, 2019 12:00am May 06, 2023 1:35pm Start: 06-04-2019 take 1 tablet by anthony th once daily Fplphcybp-Hwtmauvz-Uuc-Hyalur (Joint Hea lth) 40-10-5-3.3 mg tablet Active 1 TABLET PO DAILY June 04, 2019 1:00am cholecalciferol 0.05 mg oral capsule (8 sources) Vitamin D Start: 06-03-2019 take 2000 [IU] by mouth once daily Cholecalciferol (Vitamin D3) Active 2000 UNIT PO DAILY June 03, 2019 12:00am take 2-3 tablets by mouth once d aily VITAMIN D3 50 MCG (2000 UT) TABS 2 to 3 tablet by mouth daily cholecalciferol (vitamin d3) [id number] Polly Henry MARYANNE garlic preparation 500 mg oral capsule (7 sources) Non-Standardized Food Allergenic Extract Start: 06-03-2019 take 500 mg by mouth once daily Garlic Active 500 MG PO DAILY June 03, 2019 5:59pm Start: 06-03-2019 take 500 mg by mouth once conor y Garlic Active 500 MG PO DAILY June 03, 2019 12:00am Start: 06-03-2019 take 500 mg by mouth once conor y Garlic Active 500 MG PO DAILY June 03, 2019 1:00am Sjgtdsgqabg-M0-Qxhjwcvbn Ser r (7 sources) Start: 06-04-2019 take 1 tablet by mouth once daily Uevsrfvupmy-L7-Bcglplgdu Serr Active 1 TABLET PO DAILY June 04, 2019 8:43am Start: 06-04-2019 End: 05-06-2023 take 1 tablet by mouth once daily Tqakivcmiho-Z5-Apknplpnn Serr Discontinu ed 1 TABLET PO DAILY June 04, 2019 12:00am May 06, 2023 1:35pm Start: 06-04-2019 take 1 tablet by anthony th once daily Wtyrdzhsvpx-M2-Onpolflry Serr Active 1 TABLET PO DAILY June 04, 2019 1:00am lecithin oral granules (7 sources) Start: 06-03-2019 lecithin oral granules Active EACH PO June 03, 2019 6:01pm Start: 06-03-2019 lecithin oral granules Active EACH PO June 03, 2019 12:00am Start: 06-03-2019 lecithin oral granules Active EACH PO June 03, 2019 1:00am metoprolol tartrate 50 mg oral tablet (2 sources) beta-Adrenergic Jose Start: 05-15-2023 take 1 tablet by mouth every hour Metoprolol Tartrate Active 50 MG PO ONCE 1 May 14, 2023 11:00pm Take one tablet one hour prior to CT scan/calcium score ubidecarenone 75 mg oral capsule (7 sources) Start: 06-03-2019 Coenzyme Q10 (Ultra Coq10) 75 mg capsule Active 75 MG PO DAILY June 03, 2019 12:00am vitamin e 90 mg oral capsule (7 sources) Start: 06-03-2019 take 200 [IU] by mouth once daily Vitamin E Active 200 UNIT PO DAILY June 03, 2019 12:00am vitamin k2 0.04 mg oral tablet (7 sources) Start: 06-03-2019 take 40 ug by mouth once daily Vitamin K2 Active 40 MCG PO DAILY June 03, 2019 12:00am zinc sulfate 220 mg oral tablet (2 sources) Start: 05-06-2023 take 50 mg by mouth twice daily Zinc Sulfate Active 50 MG PO TWICE A DAY May 05, 2023 11:00pm Completed/Discontinued Medications Medication Drug Class(es) Dates Sig (Normalized) Sig (Original) acetaminophen 500 mg oral tablet (1 source) ACETAMINOPHEN 50 0 MG TABS 1 1/2 tablet by mouth every six hours acetaminophen [id number] Polly Henry LPN Arnica extract (1 source) arnica tablet by mouth as directed arnica tablet oPlly Henry LPN DL-PA-500 CAPSULE (1 source) Start: 10-27-2014 take 1 capsule by mouth once daily DL-PA-500 CAPSULE 1 capsule by mouth once a day DL-PA-500 CAPSULE Polly Carl BLUEN vitamin K2 tablet (1 source) vitamin K2 table t by mouth as directed vitamin K2 tablet Polly Henry NON DESTRUCTIVE TESTING SPECIALIST zinc gluconate 30 mg oral tablet (1 source) take 1 tablet by mouth once daily ZINC GLUCONATE 30 MG TABS 1 tablet by mouth once a day zinc gluconate [id number] Polly Henry NON DESTRUCTIVE TESTING SPECIALIST Problems Active Problems Problem Classification Problem Date Documented Date Episodic/Chronic Chronic obstructive pulmonary disease and bronchiectasis (7 sources) Mild chronic obstructive pulmonary disease; Translations: [Chronic obstructive pulmonary disease, unspecified] 08-28-2019 Chronic Disorders of lipid metabolism (9 sources) Hyperlipidemia; Translations: [Hyperlipidemia, unspecified] 06-04-2019 Chronic Esophageal disorders (7 sources) Gastroesophageal reflux disease; Translations: [Gastro-esophageal reflux disease without esophagitis] 06-04-2019 Chronic Essential hypertension (3 sources) Essential hypertension; Translations: [Essential (primary) hypertension] Onset: 01-14-2024 04-19-2023 Chronic Nonspecific chest pain (4 sources) Chest pain on exertion; Translations: [Chest pain, unspecified] 04-19-2023 Episodic Osteoarthritis (13 sources) Bilateral primary osteoarthritis of knee; Translations: [Osteoarthrosis, unspecified whether generalized or localized, lower leg] Onset: 05-28-2019 10-25-2021 Chronic Other aftercare (1 source) Other keno terminal operator (current) drug therapy; Translations: [Other keno terminal operator (current) drug therapy] Onset: 08-20-2018 Episodic Other and ill-defined heart disease (7 sources) Left ventricular hypertrophy; Translations: [Cardiomegaly] 06-04-2019 Chronic Other bone disease and musculoskeletal deformities (7 sources) Osteopenia; Translations: [Other specified disorders of bone density and structure, unspecified site] 06-04-2019 Episodic Other connective tissue disease (1 source) Presence of left artificial hip joint; Translations: [Hip joint replacement] Onset: 09-13-2021 09-13-2021 Chronic Other female genital disorders (7 sources) Mucous retention cyst of cervix uteri; Translations: [Other specified noninflammatory disorders of cervix uteri] 06-04-2019 Episodic Other lower respiratory disease (7 sources) Cough; Translations: [Cough] 06-04-2019 Episodic Other non-epithelial cancer of skin (7 sources) Malignant neoplasm of skin; Translations: [Unspecified malignant neoplasm of skin, unspecified] 06-04-2019 Episodic Other nutritional; endocrine; and metabolic disorders (1 source) Hypercalcemia; Translations: [Hypercalcemia] Onset: 09-01-2018 Chronic Other screening for suspected conditions (not mental disorders or infectious disease) (1 source) Encounter for screening mammogram for malignant neoplasm of breast; Translations: [Encounter for screening mammogram for malignant neoplasm of breast] Onset: 12-15-2024 Episodic Residual codes; unclassified (7 sources) History of arthroscopy of knee joint; Translations: [Other specified postprocedural states] 06-04-2019 Episodic Screening and history of mental health and substance abuse codes (7 sources) Tobacco use and exposure - finding; Translations: [Personal history of nicotine dependence] 06-04-2019 Episodic Spondylosis; intervertebral disc disorders; other back problems (7 sources) Degeneration of intervertebral disc; Translations: [Degeneration of intervertebral disc] 06-04-2019 Chronic Past or Other Problems Problem Classification Problem Date Documented Date Episodic/Chronic Fracture of upper limb (1 source) Closed fracture of distal end of radius; Translations: [Other extraarticular fracture of lower end of right radius, initial encounter for closed fracture] Onset: 05-29-2019 05-29-2019 Episodic Other injuries and conditions due to external causes (1 source) Encounter for examination and observation following other accident; Translations: [Encounter for examination and observation following other accident] Onset: 07-18-2024 Episodic Other lower respiratory disease (1 source) Other nonspecific abnormal finding of lung field; Translations: [Other nonspecific abnormal finding of lung field] Onset: 07-04-2024 Episodic Sprains and strains (1 source) Sprain of wrist; Translations: [Unspecified sprain of right wrist, initial encounter] Onset: 05-28-2019 05-28-2019 Episodic Unclassified (1 source) Problem Results Test Name Value Interpretation Reference Range Facility PET/CT Tumor Base -Thigh In markell 06-30-2024 PET/CT Tumor Base -Thigh [facility] [address] [place] [address] [id number] PET/CT Tumor Base -Thigh Init MR#: [id number] Acct: [id number] Name: BRENDA QUINTANILLA DECEMBER Rep #: [id number] : 1945 F 79 From: Erik Resendez PCP: Dr. Esteban Casey MD Status: REG CLI Study: PET/CT Tumor Base -Thigh Init Date of Exam: Exam# [id number] Ordering Dr: [place] [id number] EXAMINATION: FDG PET CT HISTORY: 79-year-old female with history of pulmonary nodularity. COMPARISON EXAMINATION: CT of the chest report 06/17/2024 TECHNIQUE: Following the intravenous administration of 14.13 mCi of F-18 deoxyglucose, via the left hand, multiplanar image acquisitions of the neck, chest, abdomen and pelvis to the level of mid thigh, obtained at one hour post radiopharmaceutical administration contemporaneously interpreted with the current CT of the neck, chest, abdomen and pelvis to the level of mid thigh, dated 06/30/2024 via coregistration reveals: BLOOD GLUCOSE LEVEL:?83 mg/dL?HEIGHT:?61 inches?WEIGHT: 143 lbs. FINDINGS: g Head/Neck: There is no evidence of abnormal increased glucose metabolism in the pharyngeal mucosal space, parapharyngeal space, bilateral-lateral and anterior neck, hypopharynx and distribution of the larynx. The visualized portion of the cerebral cortical-subcortical structures demonstrate symmetric and preserved glucose metabolism. CHEST: A calcified and noncalcified density both of which are identified in the left upper lung field, left upper lobe reveal no evidence of increased tracer uptake. No abnormal glucose metabolism is identified in the right-left pulmonary parenchyma, the bilateral hemithorax at the pleural interface, the mediastinal and thoracic perihilar structures. Pertinent chest CT findings are as follows. Coronary arterial calcification is observed. Atherosclerotic calcification is demonstrated in the thoracic aorta. Bilateral axillary soft tissue densities are nontracer avid. Calcified and noncalcified mediastinal soft tissue reveals no evidence of increased glucose uptake. Abdomen/Pelvis: Normal physiologic uptake is noted in the hepatic and splenic parenchyma. There is symmetric demonstration of the right and left kidneys, normal uptake in the urinary bladder and visualized intestinal tract. Review of CT of the abdomen and pelvis reveals the following. The uterus is retroflexed. Calcification demonstrated in the bilateral adnexal regions reveal no evidence of increased gross uptake. Atherosclerotic calcification is defined in the abdominal aorta without evidence of aneurysm. Calcified granuloma formation is noted in the hepatic and splenic parenchyma. SKELETAL: A left hip arthroplasty reveals no evidence of increased tracer uptake. Facilitated FDG concentration noted in the left anterolateral chest wall-rib is consistent with trauma-fracture. Degenerative changes reveal no evidence of quantitatively significant increased glucose uptake. Bilateral shoulder arthroplasties are scintigraphically unremarkable. PET/PET/CT Tumor Base -Thigh Init IMPRESSION: 1. NEGATIVE EXAMINATION. There is no definitive scintigraphic evidence of recurrent/metastatic viable neoplasm. 2. Enhanced uptake visualized in the left anterolateral chest wall is consistent with activated leukocytes associated with trauma-fracture. Electronic Signature Erik Page D.O. Accurate Quantification of SUVs for this report are calculated using the exclusive el? Technology. (U.S. Patent No. [phone], [phone], [phone] B2 [phone] [place] patent [phone]). Standardization and correction of the FDG SUV metric via [employer] technology allow for vendor non-specific objective quantitative examination comparison and optimization of the sensitivity and specificity of the FDG PET-CT examination. . [email or web address] Electronically Signed: Erik Page DO at 15:46 EST Reading Location ID and State: [facility] / [place] Tel , Service support , CC: Dr. Esteban Casey MD Net Technical Architect: Signed Normal [facility] Emergency Department Summary on 06-18-2024 Emergency Department Summary [facility] Medical Records Department [address] [place] [address] Emergency Department Summary 06/18/24 MR#: [id number] Acct: [id number] Name: BRENDA QUINTANILLA DECEMBER Rep #: [id number] : 1945 79 From: Denver Anders PCP: Dr. Esteban Casey MD Status:DEP ER Location: ED HPI HPI - Fall History of Present Illness Chief Complaint: Fall Informant: patient Narrative Narrative: Patient brought to the emergency as a rapid response team from fall in the parking lot. She was bringing her spouse in for surgery she was in a garcia and her foot got caught on the ground. She hit her head she did not pass out. Left rib pain. Bumped her knees however denies pain in it. There is bleeding to the nose. She thinks her tetanus is less than 5 years and states she does not want it updated if it was longer. Tetanus Immunization: <5 years PFSH PFS Medical History Elevated coronary artery calcium score Squamous cell carcinoma Essential hypertension Vitamin D deficiency History of tobacco abuse Skin cancer Hyperlipidemia Osteopenia Nabothian cyst LVH (left ventricular hypertrophy) GERD (gastroesophageal reflux disease) DDD (degenerative disc disease) Arthritis Home Medications ???Medication ???Instructions ???Recorded ???Last Taken ???Type cholecalciferol (vitamin D3) 50 2,000 unit PO DAILY 06/03/19 Unknown History mcg (2,000 unit) capsule coenzyme Q10 75 mg capsule (Ultra 75 mg PO DAILY 06/03/19 Unknown History CoQ10) garlic 500 mg capsule 500 mg PO DAILY 06/03/19 Unknown History lecithin ea PO 06/03/19 Unknown History vitamin E 200 unit capsule 200 unit PO DAILY 06/03/19 Unknown History vitamin K2 40 mcg tablet 40 mcg PO DAILY 06/03/19 Unknown History ascorbic acid (vitamin C) 500 mg 1,000 mg PO DAILY 06/04/19 Unknown History capsule zinc sulfate 50 mg zinc (220 mg) 50 mg PO BID 05/06/23 Unknown History tablet amoxicillin 875 mg-potassium 875 mg PO Q12H #20 TABLETS 06/17/24 Unknown Rx clavulanate 125 mg tablet Allergy/AdvReac Type Severity Reaction Status Date / Time No Known Allergies Allergy Unverified 05/12/24 11:25 Family History Mother , Age 77 Heart disease Osteoporosis Asthma Father , Age 48 Heart disease Brother , Age 48 Esophageal cancer Sweet's disease Surgical History History of total left hip arthroplasty History of bilateral reverse prosthetic total shoulder arthroplasty History of bilateral carpal tunnel release H/O dilation and curettage S/P right knee arthroscopy Social History Smoking Status: Former smoker Tobacco: How many years used: 30 how long ago did patient quit smokin,1ppd second hand exposure: Yes ROS ROS ED Constitutional Constitutional ED: Denies chills, fever(s) or sweats Eyes Eyes: Denies change in vision ENT ENT ED: Denies dysphagia or sore throat Cardiovascular Cardiovascular: Denies chest pain, leg edema, palpitations or racing heartbeat Respiratory/Chest Respiratory/Chest: Reports other; Denies cough, dyspnea or dyspnea on exertion Gastrointestinal Gastrointestinal: Denies abdominal pain, diarrhea, nausea or vomiting Genitourinary Genitourinary ED: Denies dysuria, hematuria or urinary frequency Musculoskeletal Musculoskeletal: Reports other Details: Left lower rib pain ; Denies back pain, extremity pain or neck pain Integumentary Reports wounds; Denies rash Neurologic Neurologic: Denies headache(s), paresthesias or weakness EXAM Physical Exam Const Positive well nourished and well developed Constitutional Narrative: GCS 15 General Appearance ED: well developed and NAD HEENT Reports TM's normal bilaterally and moist mucous membranes HEENT Narrative: Abrasion across the mid nasal bridge bleeding controlled with pressure no laceration. No septal hematoma. No dried blood in the naris. No trismus of the jaw. No facial bone tenderness no proptosis or entrapment. normocephalic Eyes EOMs intact bilaterally and conjunctivae normal General Eye ED: Yes normal appearance of both eyes Neck full ROM, no lymphadenopathy and supple General: Negative for tenderness Chest Wall Chest Narrative: Tender palpation left lower anterior ribs no crepitus. Chest: tenderness Resp normal respiratory effort and normal air movement Resp Narrative: Symmetric breath sounds. Effort and Inspection: symmetric chest movement; Negative for respiratory distress Cardio regular rate, regular rhythm and no murmurs Peripheral Pulses: pulses 2+ throughout GI normal to inspection, nondistended, normoactive bowel sounds and non-tender (more content not included)... Normal [facility] Brain/Head without Contrasto n 06-17-2024 Brain/Head without Contrast [facility] [address] [place] [address] [id number] Brain/Head without Contrast MR#: [id number] Acct: [id number] Name: BRENDA QUINTANILLA DECEMBER Rep #: [id number] : 1945 F 79 From: Zackary Ayala MD PCP: Dr. Esteban Casey MD Status: REG ER Study: Brain/Head without Contrast Date of Exam: 11/05 Exam# [id number] Ordering Dr: [place] [id number] STUDY: CT BRAIN WITHOUT CONTRAST REASON FOR EXAM: Female, 79 years old. Headache after a fall RADIATION DOSAGE (If Supplied By Facility): CTDIvol = ( 44.99 ) mGy, DLP = ( 846.73 ) mGycm TECHNIQUE: Transaxial CT imaging of the brain was performed without administration of intravenous contrast material. Individualized dose optimization techniques were used for this CT. COMPARISON: No relevant priors. FINDINGS: Normal soft tissue structures. Normal calvarium. There is mild cerebral atrophy with widening of the extra-axial spaces and ventricular dilatation. There are areas of decreased attenuation within the white matter tracts of the supratentorial brain, consistent with microvascular disease changes. Normal basal ganglia and thalami. Normal brainstem. There is mild cerebellar atrophy. There is no intracranial hemorrhage. There are no findings of an acute ischemic infarction. Normal visualized paranasal sinuses. CT/Brain/Head without Contrast IMPRESSION: Chronic involutional changes of the brain, no acute hemorrhage. Electronically Signed: Shaheed Ayala MD at 13:00 EST , CC: Dr. Esteban Casey MD; Dr. Denver Nieves DO Net Technical Architect: Signed Normal [facility] Chest without Contraston Chest without Contrast [facility] [address] [place] [address] Chest without Contrast MR#: [id number] Acct: [id number] Name: BRENDA QUINTANILLA DECEMBER Rep #: [id number] : 1945 F 79 From: Zackary Ayala MD PCP: Dr. Esteban Casey MD Status: REG ER Study: Chest without Contrast Date of Exam: 06/17/24 Exam# [id number] Ordering Dr: [place] [id number] INDICATION: Chest pain after fall EXAMINATION: CT CHEST WITHOUT CONTRAST - CT Chest W/O Contrast Injection TECHNIQUE: Helically acquired images were obtained of the chest. A radiation dose optimization technique was used for this scan. IV Contrast dosage and agent: None. COMPARISON: None. FINDINGS: LUNGS, PLEURA AND LARGE AIRWAYS: Lung windows show the lungs to be mildly hyperexpanded, there is a spiculated scar versus nodule in the left upper lobe and axial image 14 measuring 1 cm. There is a calcified granuloma also in the left upper lobe and axial image 26. No organized infiltrate, or effusion, there is dependent atelectasis. THYROID: No thyroid lesions. HEART AND PERICARDIUM: Heart size is normal. No pericardial effusion. CORONARY ARTERIES: Coronary artery calcification is seen. VESSELS: Thoracic aorta is not dilated. MEDIASTINUM AND BETH: No suspicious bulky mediastinal or hilar adenopathy, there are subcentimeter in short axis dimension likely reactive/physiologic mediastinal and perihilar lymph nodes.. There is a small hiatal hernia with evidence to suspect GE reflux. UPPER ABDOMEN: No acute pathology. BONES: No suspicious lytic or blastic abnormality. Bony structures show degenerative change, no demonstrated rib or thoracic vertebral body fracture. Both glenohumeral joints of been replaced and are free of complication. CT/Chest without Contrast IMPRESSION: Lungs are hyperexpanded with chronic interstitial changes. No superimposed infiltrate or effusion. There is a fibrotic scar versus spiculated nodule in the left upper lobe on axial image 26. If there is low clinical suspicion of neoplasm and smoking history is negative, no specific follow-up would be needed. If there is strong clinical suspicion, a PET/CT scan could be performed Degenerative bony changes without acute left rib or thoracic vertebral body fracture No suspicious bulky adenopathy Replaced glenohumeral joint free of complication Electronically Signed: Shaheed Ayala MD at 13:05 EST , CC: Dr. Esteban Casey MD; Dr. Denver Nieves DO Net Technical Architect: Signed Normal [facility] Sinus/Facial Boneon 06-17-20 Sinus/Facial Bone [facility] [address] [place] [address] Sinus/Facial Bone MR#: [id number] Acct: [id number] Name: BRENDA QUINTANILLA DECEMBER Rep #: [id number] : 1945 F 79 From: Zackary Ayala MD PCP: Dr. Esteban Casey MD Status: REG ER Study: Sinus/Facial Bone Date of Exam: 06/17/24 Exam# [id number] Ordering Dr: [place] [id number] STUDY: CT FACIAL BONES WITHOUT CONTRAST REASON FOR EXAM: Female, 79 years old. Facial pain after fall RADIATION DOSAGE (If Supplied By Facility): CTDIvol = ( 29.38 ) mGy, DLP = ( 584.19 ) mGycm TECHNIQUE: The patient was scanned in a multi detector CT scanner. Sagittal and coronal images were reconstructed. Individualized dose optimization techniques were used for this CT. COMPARISON: None. FINDINGS: There is a minimally displaced nasal fracture with associated soft tissue swelling and subcutaneous emphysema. Normal orbital leal and orbital contents. Normal remaining facial bones. There is no other demonstrated fracture. Normal visualized paranasal sinuses. CT/Sinus/Facial Bone IMPRESSION: Acute minimally displaced nasal fracture with soft tissue swelling and subcutaneous emphysema. Electronically Signed: Shaheed Ayala MD at 13:35 EST , CC: Dr. Esteban Casey MD; Dr. Denver Nieves DO Net Technical Architect: Signed Normal [facility] Spine Cervical without Contr ason 06-17-2024 Spine Cervical without Contras [facility] [facility] [address] [place] [address] Spine Cervical without Contras MR#: [id number] Acct: [id number] Name: BRENDA QUINTANILLA DECEMBER Rep #: [id number] : 1945 F 79 From: Zackary Ayala MD PCP: Dr. Esteban Casey MD Status: REG ER Study: Spine Cervical without Contras Date of Exam: 08/18/23 Exam# [id number] Ordering [place]: [place] [id number] STUDY: CT CERVICAL SPINE WITHOUT CONTRAST REASON FOR EXAM: Female, 79 years old. Headache and neck pain after trauma RADIATION DOSAGE (If Supplied By Facility): CTDIvol = ( 18.94 ) mGy, DLP = ( 367.65 ) mGycm TECHNIQUE: High resolution transaxial imaging was performed without contrast material. Sagittal and coronal images were reconstructed. Individualized dose optimization techniques were used for this CT. COMPARISON: None FINDINGS: Normal craniovertebral junction. There are degenerative changes of the anterior atlantoaxial articulation. Old healed odontoid process fracture noted. Normal cervical lordosis. Bones are diffusely demineralized. There is anatomic alignment of the cervical spine from C1 to C4. There is 2 to 3 mm of posterior subluxation of C5 on C4. There is anatomic alignment between C5 and C7, and another 2 to 3 mm of posterior subluxation of T1 on C7. The subluxations are likely chronic as there is no soft tissue swelling or other evidence of acute injury. C2-3: Normal endplates. Disc space narrowing.. Normal central canal and intervertebral neuroforamina. C3-4: Normal endplates. Disc space narrowing.. Normal central canal and intervertebral neuroforamina. C4-5: Normal endplates. Disc space narrowing.. Normal central canal and intervertebral neuroforamina. C5-6: Sclerotic endplate changes with broad-based partially calcified central disc bulge and uncovertebral spurs. There is borderline central canal narrowing due to the posterior spurring with the central canal measuring 8.5 mm. There is bilateral foraminal narrowing due to facet joint hypertrophy and uncovertebral spurs. C6-7: Sclerotic endplate changes with disc space narrowing and posterior uncovertebral spurs. No central canal narrowing, there is bilateral foraminal narrowing due to facet joint hypertrophy, and uncovertebral spurs. C7-T1: Normal endplates. Normal disc height and morphology. Normal central canal and intervertebral neuroforamina. Normal visualized soft tissue structures. CT/Spine Cervical without Contras IMPRESSION: Multilevel degenerative changes, as described above. No acute findings Electronically Signed: Shaheed Ayala MD at 13:22 EST Reading Location ID and State: [facility] / [place] , Service support , CC: Dr. Esteban Casey MD; Dr. Denver Nieves DO Net Technical Architect: Signed Normal [facility] Cardiology Visit Reporton Cardiology Visit Report [facility] [address] [place] [address] OFFICE VISIT Date of Service: 05/12/24 MR#: [id number] Acct: [id number] Name: BRENDA QUINTANILLA DECEMBER Rep #: [id number] : 1945 Provider: ANASTASIYA franklin Age/Sex: 79/F Location: [facility] Status: Signed [facility] History of Present Illness Details: This is an 79 year-old lady who presents to the office for a cardiovascular follow up visit. She has no previous cardiac history who presents for evaluation of chest discomfort which she says occurs when she exerts herself associated with a tightness in the upper part of her chest and throat. She does not have a previous history of hypertension or heart disease though she does have a family history. She would rather not take any medication if she could. She does not have any previous hypertension. Her most recent lipid profile demonstrated total cholesterol 238 HDL of 76 LDL of 153. She had an echocardiogram performed as part of her evaluation demonstrated ejection fraction of 65% mild focal aortic valve calcification and she had an ultrasound of her abdomen demonstrating no evidence of aortic aneurysm. She underwent a coronary calcium score in May 2023. This demonstrated extensive atherosclerotic plaquing noted in the least 2 vessels. She did have a pharmacologic nuclear stress test done following this. Her pharmacologic nuclear stress test was negative for ischemia. From a cardiac standpoint, the patient is doing well. She denies any palpitations, chest pain, pressure or heaviness. She denies SOB, Orthopnea, and PND. She does not have bleeding issues; no blood in urine, stool or nosebleeds. She denies any decrease in energy level, myalgias, or claudication. She does not have edema, or sudden weight gain. She denies dizziness, lightheadedness, syncopal or near syncopal episodes, and headaches. Intake Vital Signs 09/26/23 08:25 05/12/24 11:17 05/12/24 11:19 05/12/24 11:31 Height 5 ft 5 ft 5 ft 5 ft Weight: 143 lb BMI 27.9 BP 134/84 H Blood Pressure Location Lt brachial Position Sitting Respiration 18 Pulse 94 Pulse Source Monitor Pulse Oximetry (%) 97 Intake Visit Reasons: 1 Y FU Allergies No Known Allergies Allergy (Unverified 05/12/24 11:25) Medications ???Medication ???Instructions ???Recorded ???Confirmed ???Type cholecalciferol (vitamin D3) 50 2,000 unit PO DAILY 06/03/19 05/12/24 History mcg (2,000 unit) capsule coenzyme Q10 75 mg capsule (Ultra 75 mg PO DAILY 06/03/19 05/12/24 History CoQ10) garlic 500 mg capsule 500 mg PO DAILY 06/03/19 05/12/24 History lecithin ea PO 06/03/19 05/12/24 History vitamin E 200 unit capsule 200 unit PO DAILY 06/03/19 05/12/24 History vitamin K2 40 mcg tablet 40 mcg PO DAILY 06/03/19 05/12/24 History ascorbic acid (vitamin C) 500 mg 1,000 mg PO DAILY 06/04/19 05/12/24 History capsule zinc sulfate 50 mg zinc (220 mg) 50 mg PO BID 05/06/23 05/12/24 History tablet Have you fallen in the past year?: No PFSH Medical History (Reviewed 05/12/24 @ 11:25 by Stephanie Auguste RETORT CONDENSER ATTENDANT, RETORT CONDENSER ATTENDANT-C) Elevated coronary artery calcium score Squamous cell carcinoma Essential hypertension Vitamin D deficiency History of tobacco abuse Skin cancer Hyperlipidemia Osteopenia Nabothian cyst LVH (left ventricular hypertrophy) GERD (gastroesophageal reflux disease) DDD (degenerative disc disease) Arthritis Surgical History History of total left hip arthroplasty History of bilateral reverse prosthetic total shoulder arthroplasty History of bilateral carpal tunnel release H/O dilation and curettage S/P right knee arthroscopy Family History (Reviewed 05/12/24 @ 11:25 by Stephanie Auguste RETORT CONDENSER ATTENDANT, RETORT CONDENSER ATTENDANT-C) Mother , Age 77 Heart disease Osteoporosis Asthma Father , Age 48 Heart disease Brother , Age 48 Esophageal cancer Sweet's disease Social History (Reviewed 05/12/24 @ 11:25 by Stephanie Auguste RETORT CONDENSER ATTENDANT, RETORT CONDENSER ATTENDANT-C) Smoking Status: Former smoker Tobacco: How many years used: 30 how long ago did patient quit smokin,1ppd second hand exposure: Yes ROS Const Const: Negative for fatigue, weakness, fever(s), headache(s), chills, frequent falls, weight gain or weight loss Eyes Eyes: Negative for blind spots, loss of peripheral vision, transient loss of vision, blurry vision, change in vision, double vision, floaters or tunnel vision ENT ENT: Negative for headache(s), dizziness, Nosebleed/epistaxis, balance problems or neck pain Cardio Chest Pain: No Palpitations: No Edema: None Muscle aches with walking: None Resp Respiratory: Negative for SOB with activity, SOB at rest or SOB orthopnea SOB lying down GI GI: Negative nausea, vomiting, heart (more content not included)... Normal [facility] CBC W/Diff, Automatedon 06- Absolute Lymph 1.45 X10 3/uL Normal 0.83-4.51 [facility] Comment on above: Performed By: #### L 506.1000, L501.9520, L500.4050, L501.6710, L100.0100 #### [facility] [address] [place], [address] Absolute Neut 3.0 X10 3/uL Normal 2.0-7.7 [facility] Comment on above: Performed By: #### L 506.1000, L501.9520, L500.4050, L501.6710, L100.0100 #### [facility] [address] [place], [address] Basophils/100 WBC (Bld) 1.2 % High 0-1 [facility] Comment on above: Performed By: #### L 506.1000, L501.9520, L500.4050, L501.6710, L100.0100 #### [facility] [address] [place], [address] Eosinophils/100 WBC (Bld) 3.1 % Normal 0-5 [facility] Comment on above: Performed By: #### L 506.1000, L501.9520, L500.4050, L501.6710, L100.0100 #### [facility] [address] [place], [address] Erythrocyte distribution width (RBC) [Ratio] 13.4 % Normal 11.6-14.6 [facility] Comment on above: Performed By: #### L 506.1000, L501.9520, L500.4050, L501.6710, L100.0100 #### [facility] [address] [place], [address] Hematocrit (Bld) [Volume fraction] 37.1 % Normal 37-47 [facility] Comment on above: Performed By: #### L 506.1000, L501.9520, L500.4050, L501.6710, L100.0100 #### [facility] [address] [place], [address] Hemoglobin (Bld) [Mass/Vol] 11.9 g/dL Low 12.0-15.0 [facility] Comment on above: Performed By: #### L 506.1000, L501.9520, L500.4050, L501.6710, L100.0100 #### [facility] [address] [place], [address] IG% 0.200 Normal 0.0-0.9 [facility] Comment on above: Result Comment: IG% - Immature Granulocytes (promyelocytes, myelocytes and metamyelocytes) > 1% indicates that a LEFT SHIFT is Present. Performed By: #### L 506.1000, L501.9520, L500.4050, L501.6710, L100.0100 #### [facility] [address] [place], [address] Lymphocytes/100 WBC (Bld) 28.4 % Normal 19-41 [facility] Comment on above: Performed By: #### L 506.1000, L501.9520, L500.4050, L501.6710, L100.0100 #### [facility] [address] [place], [address] MCH (RBC) [Entitic mass] 28.0 pg Normal 27.0-32.0 [facility] Comment on above: Performed By: #### L 506.1000, L501.9520, L500.4050, L501.6710, L100.0100 #### [facility] [address] [place], [address] MCHC (RBC) [Mass/Vol] 32.1 g/dL Normal 32-36 [facility] Comment on above: Performed By: #### L 506.1000, L501.9520, L500.4050, L501.6710, L100.0100 #### [facility] [address] [place], [address] MCV (RBC) [Entitic vol] 87.3 fL Normal 81-99 [facility] Comment on above: Performed By: #### L 506.1000, L501.9520, L500.4050, L501.6710, L100.0100 #### [facility] [address] [place], [address] Monocytes/100 WBC (Bld) 8.0 % Normal 0-10 [facility] Comment on above: Performed By: #### L 506.1000, L501.9520, L500.4050, L501.6710, L100.0100 #### [facility] [address] [place], [address] Neutrophils/100 WBC (Bld) 59.1 % Normal 47-70 [facility] Comment on above: Performed By: #### L 506.1000, L501.9520, L500.4050, L501.6710, L100.0100 #### [facility] [address] [place], [address] Nucleated RBC (Bld) [#/Vol] 0 10*3/uL Normal 0-5 [facility] Comment on above: Performed By: #### L 506.1000, L501.9520, L500.4050, L501.6710, L100.0100 #### [facility] [address] [place], [address] Platelet mean volume (Bld) [Entitic vol] 9.3 fL Normal 6.2-12.0 [facility] Comment on above: Performed By: #### L 506.1000, L501.9520, L500.4050, L501.6710, L100.0100 #### [facility] [address] [place], [address] Platelets (Bld) [#/Vol] 336 10*3/uL Normal 150-450 [facility] Comment on above: Performed By: #### L 506.1000, L501.9520, L500.4050, L501.6710, L100.0100 #### [facility] [address] [place], [address] RBC (Bld) [#/Vol] 4.25 10*6/uL Normal 4.2-5.4 [facility] Comment on above: Performed By: #### L 506.1000, L501.9520, L500.4050, L501.6710, L100.0100 #### [facility] [address] [place], [address] RDW SD 42.8 fl Normal 35.1-43.9 [facility] Comment on above: Performed By: #### L 506.1000, L501.9520, L500.4050, L501.6710, L100.0100 #### [facility] [address] [place], [address] WBC (Bld) [#/Vol] 5.1 10*3/uL Normal 4.4-11.0 [facility] Comment on above: Performed By: #### L 506.1000, L501.9520, L500.4050, L501.6710, L100.0100 #### [facility] [address] [place], [address] CRPon 01-08-2024 C-REACTIVE PROT 5.88 mg/L High 0.0-3.0 [facility] Comment on above: Result Comment: C-Re active Protein (CRP) provides useful information for the diagnosis, therapy and monitoring of inflammatory processes and associated diseases. For the evaluation of Relative Risk for Cardiovascular Disease, a High Sensitivity CRP (HSCRP) should be ordered. Performed By: #### L 506.1000, L501.9520, L500.4050, L501.6710, L100.0100 #### [facility] [address] [place], [address] Comprehensive Metabolic [facility] 01-08-2024 Albumin [Mass/Vol] 3.7 g/dL Normal 3.2-5.0 [facility] Comment on above: Performed By: #### L 506.1000, L501.9520, L500.4050, L501.6710, L100.0100 #### [facility] [address] [place], [address] Albumin/Globulin [Mass ratio] 1.0 {ratio} Normal 0.9-2.4 [facility] Comment on above: Performed By: #### L 506.1000, L501.9520, L500.4050, L501.6710, L100.0100 #### [facility] [address] [place], [address] ALK P 95 U/L Normal 45-117 [facility] Comment on above: Performed By: #### L 506.1000, L501.9520, L500.4050, L501.6710, L100.0100 #### [facility] [address] [place], [address] ALT [Catalytic activity/Vol] 25 U/L Normal 13-56 [facility] Comment on above: Performed By: #### L 506.1000, L501.9520, L500.4050, L501.6710, L100.0100 #### [facility] [address] [place], [address] AST [Catalytic activity/Vol] 31 U/L Normal 15-37 [facility] Comment on above: Performed By: #### L 506.1000, L501.9520, L500.4050, L501.6710, L100.0100 #### [facility] [address] [place], [address] Bilirubin [Mass/Vol] 0.70 mg/dL Normal 0.20-1.00 [facility] Comment on above: Result Comment: For patients on eltrombopag therapy, use of Dimension [place] TBIL is not recommended. Performed By: #### L 506.1000, L501.9520, L500.4050, L501.6710, L100.0100 #### [facility] [address] [place], [address] BUN/CRE 20.4 RATIO High 10-20 [facility] Comment on above: Performed By: #### L 506.1000, L501.9520, L500.4050, L501.6710, L100.0100 #### [facility] [address] [place], [address] CA,Total 9.2 mg/dL Normal 8.5-10.1 [facility] Comment on above: Performed By: #### L 506.1000, L501.9520, L500.4050, L501.6710, L100.0100 #### [facility] [address] [place], [address] Chloride [Moles/Vol] 107 mmol/L Normal 98-107 [facility] Comment on above: Performed By: #### L 506.1000, L501.9520, L500.4050, L501.6710, L100.0100 #### [facility] [address] [place], [address] CO2 [Moles/Vol] 28.0 mmol/L Normal 21.0-32.0 [facility] Comment on above: Performed By: #### L 506.1000, L501.9520, L500.4050, L501.6710, L100.0100 #### [facility] [address] [place], [address] Creatinine [Mass/Vol] 0.49 mg/dL Low 0.55-1.02 [facility] Comment on above: Result Comment: The validity of the calculated GFR GFRAA in patients over 70 years has not been determined. Clinical correlation is essential. Performed By: #### L 506.1000, L501.9520, L500.4050, L501.6710, L100.0100 #### [facility] [address] [place], [address] EST GFR - AA 156 mL/min Normal >60 [facility] Comment on above: Result Comment: Afri can [place] GFR Calc Performed By: #### L 506.1000, L501.9520, L500.4050, L501.6710, L100.0100 #### [facility] [address] [place], [address] GAP 6 Normal 5-15 [facility] Comment on above: Performed By: #### L 506.1000, L501.9520, L500.4050, L501.6710, L100.0100 #### [facility] [address] [place], [address] GFR/1.73 sq M.predicted among non-blacks MDRD (S/P/Bld) [Vol rate/Area] 129 mL/min/{1.73_m2} Normal >60 [facility] Comment on above: Result Comment: Non- GFR Calc Performed By: #### L 506.1000, L501.9520, L500.4050, L501.6710, L100.0100 #### [facility] [address] [place], [address] Globulin (S) [Mass/Vol] 3.6 g/dL Normal 2.2-4.2 [facility] Comment on above: Performed By: #### L 506.1000, L501.9520, L500.4050, L501.6710, L100.0100 #### [facility] [address] [place], [address] Glucose [Mass/Vol] 91 mg/dL Normal 74-106 [facility] Comment on above: Performed By: #### L 506.1000, L501.9520, L500.4050, L501.6710, L100.0100 #### [facility] [address] [place], [address] Potassium [Moles/Vol] 3.6 mmol/L Normal 3.5-5.1 [facility] Comment on above: Performed By: #### L 506.1000, L501.9520, L500.4050, L501.6710, L100.0100 #### [facility] [address] [place], [address] Sodium [Moles/Vol] 141 mmol/L Normal 136-145 [facility] Comment on above: Performed By: #### L 506.1000, L501.9520, L500.4050, L501.6710, L100.0100 #### [facility] [address] [place], [address] T PROT 7.3 g/dL Normal 6.4-8.2 [facility] Comment on above: Performed By: #### L 506.1000, L501.9520, L500.4050, L501.6710, L100.0100 #### [facility] [address] [place], [address] Urea nitrogen [Mass/Vol] 10 mg/dL Normal 7-18 [facility] Comment on above: Performed By: #### L 506.1000, L501.9520, L500.4050, L501.6710, L100.0100 #### [facility] [address] [place], [address] Thyroid Stim Hormone (TSH)on 01-08-2024 TSH 1.42 uIU/mL Normal 0.358-3.74 [facility] Comment on above: Performed By: #### L 506.1000, L501.9520, L500.4050, L501.6710, L100.0100 #### [facility] [address] [place], [address] Vitamin D,25 Hydroxyon 01-07 Vitamin D 25-OH 42.9 ng/mL Normal [facility] Comment on above: Result Comment: Mallory min D 25(OH) Status Range Deficiency <20 ng/mL (50nmol/L) Insufficiency 20 - 30 ng/mL (50 - 75 nmol/L) Sufficiency 30 - 100 ng/mL (75 - 250 nmol/L) Toxicity >100 ng/mL (>250 nmol/L) Performed By: #### L 506.1000, L501.9520, L500.4050, L501.6710, L100.0100 #### [facility] [address] [place], [place], [address] Absolute lymphocyte countOrd ered By: Dr. Casey on 11-30-2022 Lymphocytes Auto (Unsp spec) [#/Vol] 1.67 10*3/uL 0.83-4.51 [facility] Basophil percentageOrdered B y: Dr. Casey on 11-30-2022 Basophils/100 WBC (Bld) 1.0 % 0-1 [facility] Bilirubin [Mass/Vol] 1.00 mg/dL 0.20-1.00 [facility] Comment on above: For patients on eltr ombopag therapy, use of Dimension [place] TBIL is not recommended. Chloride [Moles/Vol] 104 mmol/L 98-107 [facility] Eosinophils/100 WBC (Bld) 1.5 % 0-5 [facility] Glucose [Mass/Vol] 80 mg/dL 74-106 [facility] Neutrophils (Bld) [#/Vol] 3.8 10*3/uL 2.0-7.7 [facility] Neutrophils/100 WBC (Bld) 61.0 % 47-70 [facility] Potassium [Moles/Vol] 4.0 mmol/L 3.5-5.1 [facility] Protein [Mass/Vol] 8.0 g/dL 6.4-8.2 [facility] Sodium [Moles/Vol] 137 mmol/L 136-145 [facility] WBC (Bld) [#/Vol] 6.2 10*3/uL 4.4-11.0 [facility] Blood erythrocytes count (nu mber/volume)Ordered By: Dr. Casey on 11-30-2022 RBC (Bld) [#/Vol] 4.93 10*6/uL 4.2-5.4 [facility] Blood hemoglobin measurement (mass/volume)Ordered By: Dr. Casey on 11-30-2022 Hemoglobin (Bld) [Mass/Vol] 14.1 g/dL 12.0-15.0 [facility] Blood lymphocytes/100 leukoc ytesOrdered By: Dr. Casey on 11-30-2022 Lymphocytes/100 WBC (Bld) 26.9 % 19-41 [facility] Blood monocytes/100 leukocyt esOrdered By: Dr. Casey on 11-30-2022 Monocytes/100 WBC (Bld) 9.4 % 0-10 [facility] Blood platelet mean volumeOr dered By: Dr. Casey on 11-30-2022 Platelet mean volume (Bld) [Entitic vol] 9.9 fL 6.2-12.0 [facility] Determination of erythrocyte mean corpuscular volume (MCV)Ordered By: Dr. Casey on 11-30-2022 MCV (RBC) [Entitic vol] 89.9 fL 81-99 [facility] Hematocrit Auto (Bld) [Volum e fraction]Ordered By: Dr. Casey on 11-30-2022 Hematocrit (Bld) [Volume fraction] 44.3 % 37-47 [facility] - Chemistry and C hemistry - challengeOrdered By: Dr. Casey on 11-30-2022 ALP [Catalytic activity/Vol] 109 U/L 45-117 [facility] ALT [Catalytic activity/Vol] 30 U/L 13-56 [facility] CO2 [Moles/Vol] 27.0 mmol/L 21.0-32.0 [facility] Globulin (S) [Mass/Vol] 4.0 g/dL 2.2-4.2 [facility] Urea nitrogen/Creatinine [Mass ratio] 24.5 mg/mg 10-20 [facility] - Hematology and Cell countsOrdered By: Dr. Casey on 11-30-2022 Erythrocyte distribution width (RBC) [Entitic vol] 44.2 fL 35.1-43.9 [facility] Erythrocyte distribution width (RBC) [Ratio] 13.5 % 11.6-14.6 [facility] Immature granulocytes/100 WBC (Bld) 0.200 % 0.0-0.9 [facility] Comment on above: IG% - Immature Granu locytes (promyelocytes, myelocytes and metamyelocytes) > 1% indicates that a LEFT SHIFT is Present. MCH (RBC) [Entitic mass] 28.6 pg 27.0-32.0 [facility] Nucleated RBC/100 WBC (Bld) [Ratio] 0 % 0-5 [facility] MCHC Auto (RBC) [Mass/Vol]Or dered By: Dr. Casey on 11-30-2022 MCHC (RBC) [Mass/Vol] 31.8 g/dL 32-36 [facility] No Panel InformationOrdered By: Dr. Casey on 11-30-2022 Estimated GFR (MDRD) Amer 121 mL/min >60 [facility] Comment on above: GFR Calc Estimated GFR (MDRD) Non-Af Amer 100 mL/min >60 [facility] Comment on above: Non- GFR Calc Thyroid Stimulating Hormone (TSH) 1.42 uIU/mL 0.358-3.74 [facility] Vitamin D 25-Hydroxy 66.7 ng/mL [facility] Comment on above: Vitamin D 25(OH) Sta tus Range Deficiency <20 ng/mL (50nmol/L) Insufficiency 20 - 30 ng/mL (50 - 75 nmol/L) Sufficiency 30 - 100 ng/mL (75 - 250 nmol/L) Toxicity >100 ng/mL (>250 nmol/L) Platelets bldOrdered By: Dr. Casey on 11-30-2022 Platelets (Bld) [#/Vol] 365 10*3/uL 150-450 [facility] Serum or plasma albumin reymundo urement (mass/volume)Ordered By: Dr. Casey on 11-30-2022 Albumin [Mass/Vol] 4.0 g/dL 3.2-5.0 [facility] Serum or plasma albumin/glob ulin mass ratioOrdered By: Dr. Casey on 11-30-2022 Albumin/Globulin [Mass ratio] 1.0 {ratio} 0.9-2.4 [facility] Serum or plasma calcium reymundo urement (mass/volume)Ordered By: Dr. Casey on 11-30-2022 Calcium [Mass/Vol] 9.6 mg/dL 8.5-10.1 [facility] Serum or plasma creatinine m easurement (mass/volume)Ordered By: Dr. Casey on 11-30-2022 Creatinine [Mass/Vol] 0.61 mg/dL 0.55-1.02 [facility] Comment on above: The validity of the calculated GFR & GFRAA in patients over 70 years has not been determined. Clinical correlation is essential. Serum or plasma urea nitroge n measurement (mass/volume)Ordered By: Dr. Casey on 11-30-2022 Urea nitrogen [Mass/Vol] 15 mg/dL 7-18 [facility] Thin prep Papanicolaou smear with manual screeningOrdered By: Dr. Casey on 11-30-2022 Thin prep Papanicolaou smear with manual screening 33 U/L 15-37 [facility] Thin prep Papanicolaou smear with manual screening 6 5-15 [facility] Absolute lymphocyte counton 11-24-2021 Lymphocytes Auto (Unsp spec) [#/Vol] 1.35 10*3/uL 0.83-4.51 [facility] Work Phone: Basophil percentageon 2021 Basophils/100 WBC (Bld) 1.0 % 0-1 [facility] Work Phone: Bilirubin [Mass/Vol] 0.90 mg/dL 0.20-1.00 [facility] Work Phone: Comment on above: For patients on eltr ombopag therapy, use of Dimension [place] TBIL is not recommended. Chloride [Moles/Vol] 106 mmol/L 98-107 [facility] Work Phone: [phone] Eosinophils/100 WBC (Bld) 1.7 % 0-5 [facility] Work Phone: [phone] Glucose [Mass/Vol] 111 mg/dL 74-106 [facility] Work Phone: [phone] Comment on above: Fasting Glucose resu lt from 100 to 125 mg/dL suggests IMPAIRED HOMEOSTASIS per A.D.A. criteria. Neutrophils (Bld) [#/Vol] 3.2 10*3/uL 2.0-7.7 [facility] Work Phone: Neutrophils/100 WBC (Bld) 61.6 % 47-70 [facility] Work Phone: Potassium [Moles/Vol] 3.9 mmol/L 3.5-5.1 [facility] Work Phone: [phone] Protein [Mass/Vol] 7.6 g/dL 6.4-8.2 [facility] Work Phone: Sodium [Moles/Vol] 137 mmol/L 136-145 [facility] Work Phone: [phone] WBC (Bld) [#/Vol] 5.2 10*3/uL 4.4-11.0 [facility] Work Phone: Blood erythrocytes count (nu mber/volume)on 11-24-2021 RBC (Bld) [#/Vol] 4.50 10*6/uL 4.2-5.4 [facility] Work Phone: Blood hemoglobin measurement (mass/volume)on 11-24-2021 Hemoglobin (Bld) [Mass/Vol] 12.8 g/dL 12.0-15.0 [facility] Work Phone: [phone] Blood lymphocytes/100 leukoc yteson 11-24-2021 Lymphocytes/100 WBC (Bld) 26.2 % 19-41 [facility] Work Phone: Blood monocytes/100 leukocyt eson 11-24-2021 Monocytes/100 WBC (Bld) 9.3 % 0-10 [facility] Work Phone: Blood platelet mean volumeon 11-24-2021 Platelet mean volume (Bld) [Entitic vol] 9.7 fL 6.2-12.0 [facility] Work Phone: Determination of erythrocyte mean corpuscular volume (MCV)on 11-24-2021 MCV (RBC) [Entitic vol] 87.3 fL 81-99 [facility] Work Phone: Hematocrit Auto (Bld) [Volum e fraction]on 11-24-2021 Hematocrit (Bld) [Volume fraction] 39.3 % 37-47 [facility] Work Phone: Laboratory - Chemistry and C hemistry - challengeon 11-24-2021 ALP [Catalytic activity/Vol] 107 U/L 45-117 [facility] Work Phone: ALT [Catalytic activity/Vol] 35 U/L 13-56 [facility] Work Phone: CO2 [Moles/Vol] 22.0 mmol/L 21.0-32.0 [facility] Work Phone: [phone] Globulin (S) [Mass/Vol] 3.8 g/dL 2.2-4.2 [facility] Work Phone: Urea nitrogen/Creatinine [Mass ratio] 28.7 mg/mg 10-20 [facility] Work Phone: Laboratory - Hematology and Cell countson 11-24-2021 Erythrocyte distribution width (RBC) [Entitic vol] 42.5 fL 35.1-43.9 [facility] Work Phone: Erythrocyte distribution width (RBC) [Ratio] 13.3 % 11.6-14.6 [facility] Work Phone: Immature granulocytes/100 WBC (Bld) 0.200 % 0.0-0.9 [facility] Work Phone: Comment on above: IG% - Immature Granu locytes (promyelocytes, myelocytes and metamyelocytes) > 1% indicates that a LEFT SHIFT is Present. MCH (RBC) [Entitic mass] 28.4 pg 27.0-32.0 [facility] Work Phone: Nucleated RBC/100 WBC (Bld) [Ratio] 0 % 0-5 [facility] Work Phone: MCHC Auto (RBC) [Mass/Vol]on 11-24-2021 MCHC (RBC) [Mass/Vol] 32.6 g/dL 32-36 [facility] Work Phone: No Panel Informationon 11-24 Estimated GFR (MDRD) Amer 136 mL/min >60 [facility] Work Phone: Comment on above: GFR Calc Estimated GFR (MDRD) Non-Af Amer 112 mL/min >60 [facility] Work Phone: Comment on above: Non- GFR Calc Thyroid Stimulating Hormone (TSH) 1.09 uIU/mL 0.358-3.74 [facility] Work Phone: Vitamin D 25-Hydroxy 67.0 ng/mL [facility] Work Phone: Comment on above: Vitamin D 25(OH) Sta tus Range Deficiency <20 ng/mL (50nmol/L) Insufficiency 20 - 30 ng/mL (50 - 75 nmol/L) Sufficiency 30 - 100 ng/mL (75 - 250 nmol/L) Toxicity >100 ng/mL (>250 nmol/L) Platelets bldon 11-24-2021 Platelets (Bld) [#/Vol] 366 10*3/uL 150-450 [facility] Work Phone: Serum or plasma albumin reymundo urement (mass/volume)on 11-24-2021 Albumin [Mass/Vol] 3.8 g/dL 3.2-5.0 [facility] Work Phone: Serum or plasma albumin/glob ulin mass ratioon 11-24-2021 Albumin/Globulin [Mass ratio] 1.0 {ratio} 0.9-2.4 [facility] Work Phone: Serum or plasma calcium reymundo urement (mass/volume)on 11-24-2021 Calcium [Mass/Vol] 9.6 mg/dL 8.5-10.1 [facility] Work Phone: Serum or plasma creatinine m easurement (mass/volume)on 11-24-2021 Creatinine [Mass/Vol] 0.56 mg/dL 0.55-1.02 [facility] Work Phone: Comment on above: The validity of the calculated GFR & GFRAA in patients over 70 years has not been determined. Clinical correlation is essential. Serum or plasma urea nitroge n measurement (mass/volume)on 11-24-2021 Urea nitrogen [Mass/Vol] 16 mg/dL 7-18 [facility] Work Phone: Thin prep Papanicolaou smear with manual screeningon 11-24-2021 Thin prep Papanicolaou smear with manual screening 30 U/L 15-37 [facility] Work Phone: Thin prep Papanicolaou smear with manual screening 9 5-15 [facility] Work Phone: Clinical Summary: Huber lakisha 10-25-2021 MC75 OP Visit Invalid Interpretation Code [facility] Work Phone: Self Check COVIDon 1 SARS-CoV-2 (COVID-19) RNA ALEX+probe Ql (Unsp spec) UPPER RESPIRATORY TRACT SWAB Normal [facility] Comment on above: Performed By: #### H CCOVD #### [facility] [employer] [address] [place], [place] [address] SARS-CoV-2 (COVID-19) RNA ALEX+probe Ql (Unsp spec) Negative for COVID19 (SARS CoV2) by RT-PCR or equivalent method. Normal Negative for COVID19 (SARS CoV2) by RT-PCR or equivalent method. [facility] Comment on above: Result Comment: This test was developed and its performance characteristics determined by [facility] [place]. This test has been authorized by FDA under an Emergency Use Authorization (EUA). This test has been validated in accordance with the FDA's Guidance Document Policy for Diagnostics Testing in Laboratories Certified to Perform High Complexity Testing under CLIA prior to Emergency use Authorization for Coronavirus Disease 2019 during the Public Health Emergency issued on September 12, 2019. Test performed by [facility], [facility] [place], [address] [address]. Performed By: #### H CCOVD #### [facility] [address] [place] [address] [facility] 06-22-2021 [facility] Telephone (NC2E) BRENDA QUINTANILLA ([id number]) 1945 F Date Time Provider Department 06/22/21 NATO VICENTE NC2E During your visit today, we recorded the following information about you: PHOEBE Ruvalcaba 06/22/2021 2:58 PM Signed TOTAL JOINT COMPLETE CARE PROGRAM PRE-OPERATIVE TEACHING Service Date: 06/22/2021 Service Time: 2:47 PM Date of : 1945 Gender: female Date of Surgery: 07/06/21 Procedure: Left Total Hip Replacement Complete Care Program was discussed with the patient: Trailer Sections Assembler Identification: Patient identified a resident care technician to help when discharged to home: Home Environment: Home Layout: 2 story, Entry Steps: 2, Bedroom Location: 1st floor, Bathroom Location: 1st Floor half bath and 2nd floor Walk in and tub shower. Pt owns walker, crutches, cane, shower chair, skein dyer, BSC. Discussed with patient importance of attending joint education class and provided date and times of class: YES paper copy Patient received Joint Education Binder: Yes Patient plans discharge home with [facility]. SIGNATURE: PHOEBE Ruvalcaba PATIENT NAME: Brenda Quintanilla DATE: June 22, 2021 TIME: 7:52 AM Allergies As of Date: 06/22/2021 (No Known Allergies) Date Reviewed: 06/16/2021 Reviewed by: Rosemarie Landin APRN.CATARACT LENS GENERATOR - Fully Assessed Reason for Visit: Pre-Op Teaching [134] Prescriptions as of 06/22/2021 - mupirocin (BACTROBAN) 2 % ointment Apply 1/2 inch of ointment with a Q-tip to both nostrils in the morning and afternoon for 5 consecutive days before surgery Do not use on the morning of your COVID swab, resume afterwards - Mcintire Oil oil Take 1 capsule by mouth twice daily. - glucosamine/D3/boswelli a reece ([id number] IA SERR ORAL) Take 1 tablet by mouth as needed. - vitamin E, dl,tocopheryl acet, (VITAMIN E, DL, ACETATE,) 400 unit capsule Take 400 Units by mouth as needed. - methylsulfonylmethane (MSM ORAL) Take 4-8 g by mouth once daily. - Miralax / Gatorade Prep Miralax 238 gm bottle and (2) 32 oz bottles of Gatorade AND 4 Dulcolax 5 mg tabs- as directed per instructions - Ascorbic Acid (VITAMIN C) 1,000 mg tablet Take 1,000 mg by mouth once daily. - LECITHIN GRANULES ORAL Take 1 Tablespoonful by mouth once daily. - Cholecalciferol, Vitamin D3, (VITAMIN D-3) 2,000 unit cap Take 2,000 Units by mouth twice daily. - VITAMIN K2 ORAL Take 47,100 mcg by mouth once daily. - Garlic 500 mg cap Take 500 mg by mouth once daily. - COQ10, UBIQUINOL, ORAL Take 200 mg by mouth as needed. Problem List As Of Date 06/22/2021 Noted Resolved Other hyperlipidemia [E78.49] 03/26/2014 Osteopenia [M85.80] 03/26/2014 Arthritis of shoulder region, degenerative [M19*03/30/2014 Primary localized osteoarthritis of left hip [M*03/30/2014 Shoulder pain [M25.519] 04/05/2014 Shoulder stiffness [M25.619] 04/05/2014 12/20/2016 DDD (degenerative disc disease), lumbar [M51.36] Osteoporosis [M81.0] GERD (gastroesophageal reflux disease) [K21.9] Encounter Status:Closed by CHANTELLE FARRAR on 06/22/21 Normal [facility] Albuminon 06-16-2021 Albumin [Mass/Vol] 4.7 g/dL Normal 3.9-4.9 [facility] Comment on above: Performed By: #### A LB, IRON, CBCDIF, RETIC #### [facility] [address] [place] [address] CBC and Differentialon 06-16 Abs Baso 0.08 k/uL Normal <0.11 [facility] Comment on above: Performed By: #### A LB, IRON, CBCDIF, RETIC #### [facility] [address] [place] [address] Abs [place] 0.49 k/uL Normal <0.87 [facility] Comment on above: Performed By: #### A LB, IRON, CBCDIF, RETIC #### [facility] [address] [place] [address] Abs Neut 3.60 k/uL Normal 1.45-7.50 [facility] Comment on above: Performed By: #### A LB, IRON, CBCDIF, RETIC #### [facility] [address] [place] [address] Absolute nRBC <0.01 Normal <0.01 [facility] Comment on above: Performed By: #### A LB, IRON, CBCDIF, RETIC #### [facility] [address] [place] [address] Basophils/100 WBC (Bld) 1.4 % Normal [facility] Comment on above: Performed By: #### A LB, IRON, CBCDIF, RETIC #### [facility] [address] [place] [address] DTYPE Auto Diff Normal [facility] Comment on above: Performed By: #### A LB, IRON, CBCDIF, RETIC #### [facility] [address] [facility] [phone] Eosinophils (Bld) [#/Vol] 0.23 10*3/uL Normal <0.46 [facility] Comment on above: Performed By: #### A LB, IRON, CBCDIF, RETIC #### [facility] [address] [facility] [phone] Eosinophils/100 WBC (Bld) 3.9 % Normal [facility] Comment on above: Performed By: #### A LB, IRON, CBCDIF, RETIC #### [facility] [address] [place] [address] Erythrocyte distribution width (RBC) [Ratio] 13.9 % Normal 11.5-15.0 [facility] Comment on above: Performed By: #### A LB, IRON, CBCDIF, RETIC #### [facility] [address] [place] [address] Hematocrit (Bld) [Volume fraction] 40.8 % Normal 36.0-46.0 [facility] Comment on above: Performed By: #### A LB, IRON, CBCDIF, RETIC #### [facility] [address] [place] [address] Hemoglobin (Bld) [Mass/Vol] 13.0 g/dL Normal 11.5-15.5 [facility] Comment on above: Performed By: #### A LB, IRON, CBCDIF, RETIC #### [facility] [address] [place] [address] Lymphocytes (Bld) [#/Vol] 1.43 10*3/uL Normal 1.00-4.00 [facility] Comment on above: Performed By: #### A LB, IRON, CBCDIF, RETIC #### [facility] [address] [place] [address] Lymphocytes/100 WBC (Bld) 24.5 % Normal [facility] Comment on above: Performed By: #### A LB, IRON, CBCDIF, RETIC #### [facility] [address] [place] [address] MCH 28.7 pG Normal 26.0-34.0 [facility] Comment on above: Performed By: #### A LB, IRON, CBCDIF, RETIC #### [facility] [address] [place] [phone] MCHC (RBC) [Mass/Vol] 31.9 g/dL Normal 30.5-36.0 [facility] Comment on above: Performed By: #### A LB, IRON, CBCDIF, RETIC #### [facility] [address] [place] [phone] MCV (RBC) [Entitic vol] 90.1 fL Normal 80.0-100.0 [facility] Comment on above: Performed By: #### A LB, IRON, CBCDIF, RETIC #### [facility] [address] Monocytes/100 WBC (Bld) 8.4 % Normal [facility] Comment on above: Performed By: #### A LB, IRON, CBCDIF, RETIC #### [facility] [address] [place] [address] Neutrophils/100 WBC (Bld) 61.8 % Normal [facility] Comment on above: Performed By: #### A LB, IRON, CBCDIF, RETIC #### [facility] [address] [place] [address] NRBCs 0.0 /100 WBC Normal 0 [facility] Comment on above: Performed By: #### A LB, IRON, CBCDIF, RETIC #### [facility] [address] Platelet mean volume (Bld) [Entitic vol] 9.4 fL Normal 9.0-12.7 [facility] Comment on above: Performed By: #### A LB, IRON, CBCDIF, RETIC #### [facility] [address] [place] [phone] Platelets (Bld) [#/Vol] 369 10*3/uL Normal 150-400 [facility] Comment on above: Performed By: #### A LB, IRON, CBCDIF, RETIC #### [facility] [address] [place] [phone] RBC (Bld) [#/Vol] 4.53 10*6/uL Normal 3.90-5.20 [facility] Comment on above: Performed By: #### A LB, IRON, CBCDIF, RETIC #### [facility] [address] [facility] [phone] WBC (Bld) [#/Vol] 5.84 10*3/uL Normal 3.70-11.00 [facility] Comment on above: Performed By: #### A LB, IRON, CBCDIF, RETIC #### [facility] [address] [facility] [phone] CNOVon 06-16-2021 CNOV Office Visit (ORMDNA ) BRENDA QUINTANILLA ([id number]) 1945 F Date Time Provider Department 06/16/21 9:30 AM NATO VICENTE During your visit today, we recorded the following information about you: Nato Vicente MD 06/26/2021 10:10 PM Signed DEPARTMENT OF ORTHOPAEDICS CHIEF COMPLAINT: Bilateral shoulder pain HISTORY OF PRESENT ILLNESS: This is a pleasant 76 year old female, who presents today with a chief complaint of right>left shoulder pain. She complains of sharp pain about the anterior and medial aspect of approximately several years duration. This pain is constant. She denies recent trauma. She complains that the pain is 8. She denies nocturnal pain. The pain is exacerbated by overhead activities and reaching. Previous treatments have included OTC medicaiton. She denies proximal radiation. She reports distal radiation. She denies numbness, tingling, or electric shocks. She reports grinding. She denies swelling, mass, warmth, fevers, chills, sweats, adenopathy, fatigue, weight gain, weight loss, and shortness of breath. PAIN EVALUATION 06/16/2021 0934 Pain Level: 8 Pain Location: Shoulder-Right Description: Sharp Duration Amount of Time: ? ongoing Frequency: Continuous Intervention/Comfort measure: Positioning;Medication PAST MEDICAL HISTORY Diagnosis Date - Arthritis of shoulder region, degenerative Bilateral - DDD (degenerative disc disease), lumbar - Degenerative arthritis of hip Left - Distal radius fracture 05/2019 - GERD (gastroesophageal reflux disease) - LVH (left ventricular hypertrophy) - Nabothian cyst - Osteoporosis - Other and unspecified hyperlipidemia - Skin cancer PAST SURGICAL HISTORY Procedure Laterality Date - COLONOSCOPY 12/27/2008 Benign appearing nodules at 15 cm from anal verge (hyperplastic polyp), few diverticula, small internal and external hemorrhoids - DANDC, DIAG AND/OR THERAPEUTIC x 2 - EGD - KNEE ARTHROSCOPY Right 2014 Torn meniscus Current Outpatient Medications Medication Sig Dispense Refill - [START ON 07/01/2021] mupirocin (BACTROBAN) 2 % ointment Apply 1/2 inch of ointment with a Q-tip to both nostrils in the morning and afternoon for 5 consecutive days before surgery Do not use on the morning of your COVID swab, resume afterwards 15 g 0 - Mcintire Oil oil Take 1 capsule by mouth twice daily. - glucosamine/D3/boswelli a reece ([id number] IA SERR ORAL) Take 1 tablet by mouth as needed. - vitamin E, dl,tocopheryl acet, (VITAMIN E, DL, ACETATE,) 400 unit capsule Take 400 Units by mouth as needed. - methylsulfonylmethane (MSM ORAL) Take 4-8 g by mouth once daily. - Miralax / Gatorade Prep Miralax 238 gm bottle and (2) 32 oz bottles of Gatorade AND 4 Dulcolax 5 mg tabs- as directed per instructions (Patient not taking: Reported on 05/05/2021 ) - Ascorbic Acid (VITAMIN C) 1,000 mg tablet Take 1,000 mg by mouth once daily. - LECITHIN GRANULES ORAL Take 1 Tablespoonful by mouth once daily. - Cholecalciferol, Vitamin D3, (VITAMIN D-3) 2,000 unit cap Take 2,000 Units by mouth twice daily. - VITAMIN K2 ORAL Take 47,100 mcg by mouth once daily. - Garlic 500 mg cap Take 500 mg by mouth once daily. - COQ10, UBIQUINOL, ORAL Take 200 mg by mouth as needed. No current facility-administered medications for this visit. ALLERGIES No Known Allergies FAMILY HISTORY Problem Relation Age of Onset - Heart Mother at 77 - Osteoporosis Mother - Heart Father - Cancer Brother Esophageal cancer, at 48 - Aneurysm Brother AAA - Breast Cancer Daughter Paternal cousin - other (Bipolar Disorder) Daughter Social History Tobacco Use - Smoking status: Former Smoker Packs/day: 1.00 Years: 30.00 Pack years: 30.00 Types: Cigarettes Quit date: 07/15/1993 Years since quittin.9 - Smokeless tobacco: Never Used Vaping Use - Vaping Use: Never used Substance Use Topics - Alcohol use: No Comment: Special occasions only - Drug use: No Hand Dominance: right handed Occupation: retired Activity level: recreational, sport/activity: none REVIEW OF SYSTEMS: GENERAL: negative for malaise, significant weight loss, night sweats and fever HEENT: No changes in hearing or vision, no nose bleeds or other nasal problems., No trouble swallowing RESPIRATORY: Negative for cough, wheezing and shortness of breath CARDIOVASCULAR: Negative for chest pain, leg swelling, palpitations, orthopnea GI: Negative for abdominal discomfort, hematochezia, melena, hematemesis, change in bowel habits, diarrhea, constipation, nausea or vomiting. MUSCULOSKELETAL: See HPI. PSYCH: Negative for sleep disturbance, mood disorder and recent psychosocial stressors. HEMATOLOGY Negative for prolonged bleeding, bruising easily, and swollen nodes. ENDOCRINE: Negative for cold or heat intolerance, polyuri (more content not included)... Normal [facility] Comp Metabolic Panelon 06-16 Albumin [Mass/Vol] 4.7 g/dL Normal 3.9-4.9 [facility] Comment on above: Performed By: #### C MP #### [facility] [address] [place], [place] [phone] ALP [Catalytic activity/Vol] 98 U/L Normal 34-123 [facility] Comment on above: Performed By: #### C MP #### [facility] [address] [place], [place] [phone] ALT [Catalytic activity/Vol] 18 U/L Normal 7-38 [facility] Comment on above: Performed By: #### C MP #### [facility] [address] Anion gap [Moles/Vol] 12 mmol/L Normal 9-18 [facility] Comment on above: Performed By: #### C MP #### [facility] [address] AST [Catalytic activity/Vol] 25 U/L Normal 13-35 [facility] Comment on above: Performed By: #### C MP #### [facility] [address] [place] [address] Bilirubin [Mass/Vol] 0.6 mg/dL Normal 0.2-1.3 [facility] Comment on above: Performed By: #### C MP #### [facility] [address] [place] [address] Calcium [Mass/Vol] 9.5 mg/dL Normal 8.5-10.2 [facility] Comment on above: Performed By: #### C MP #### [facility] [address] [place] [address] Chloride [Moles/Vol] 103 mmol/L Normal 97-105 [facility] Comment on above: Performed By: #### C MP #### [facility] [address] [place] [address] CO2 [Moles/Vol] 25 mmol/L Normal 22-30 [facility] Comment on above: Performed By: #### C MP #### [facility] [address] [place] [address] Creatinine [Mass/Vol] 0.49 mg/dL Low 0.58-0.96 [facility] Comment on above: Performed By: #### C MP #### [facility] [address] [place] [address] eGFR- Amer. >60 Normal [facility] Comment on above: Performed By: #### C MP #### [facility] [address] [place] [address] eGFR-All Other Races >60 Normal [facility] Comment on above: Result Comment: eGFR (Estimated GFR) Units of measure: mL/min/1.73 meters squared eGFR is derived from the reexpressed MDRD Study equation using the following parameters: serum creatinine, age, gender and race. The creatinine assay has been calibrated to be traceable to IDMS. An eGFR <60 mL/min/1.73m2 for >3 months is consistent with chronic kidney disease. Refer to KDOQI guidelines for clinical interpretation. In patients with unstable renal function, e.g. those with acute kidney injury, the eGFR may not accurately reflect actual GFR. Note: On 09/09/2021, the eGFR calculation will be updated to the NKF-ASN Task Force recommended 2020 CKD-EPI creatinine equation which does not include a race variable. For more information or to access a 2020 CKD-EPI calculator, visit the National Kidney Foundation website at kidney.org/professionals/kdoqi/gfr_calculator. Performed By: #### C MP #### [facility] [address] [address] Glucose [Mass/Vol] 84 mg/dL Normal 74-99 [facility] Comment on above: Result Comment: The [place] Diabetes Association (ADA) provides guidance for cutoff values for fasting glucose and random glucose. The ADA defines fasting as no caloric intake for at least 8 hours. Fasting plasma glucose results between 100 to 125 mg/dL indicate increased risk for diabetes (prediabetes). Fasting plasma glucose results greater than or equal to 126 mg/dL meet the criteria for diagnosis of diabetes. In the absence of unequivocal hyperglycemia, results should be confirmed by repeat testing. In a patient with classic symptoms of hyperglycemia or hyperglycemic crisis, random plasma glucose results greater than or equal to 200 mg/dL meet the criteria for diagnosis of diabetes. Reference: Standards of Medical Care in Diabetes 2016, [place] [employer] Association. Diabetes Care. 2016.39(Suppl 1). Performed By: #### C MP #### [facility] [address] [place] [address] Potassium [Moles/Vol] 4.1 mmol/L Normal 3.7-5.1 [facility] Comment on above: Performed By: #### C MP #### [facility] [address] [place] [address] Protein [Mass/Vol] 7.6 g/dL Normal 6.3-8.0 [facility] Comment on above: Performed By: #### C MP #### [facility] [address] [place], [place] [phone] Sodium [Moles/Vol] 140 mmol/L Normal 136-144 [facility] Comment on above: Performed By: #### C MP #### [facility] [address] [place] [address] Urea nitrogen [Mass/Vol] 13 mg/dL Normal 7-21 [facility] Comment on above: Performed By: #### C MP #### [facility] [address] [place] [address] Confirm Blood Typeon 12-03-2 021 ABO/RH(D) Positive Normal [facility] Comment on above: Performed By: #### C ONABO #### [facility] [address] [phone] Ferritinon 06-16-2021 Ferritin [Mass/Vol] 28.4 ng/mL Normal 14.7-205.1 [facility] Comment on above: Performed By: #### S ERFOL, B12, FERR #### [facility] [address] [facility] [phone] Folate, Serumon 06-16-2021 Folate [Mass/Vol] 13.7 ng/mL Normal >4.7 [facility] Comment on above: Performed By: #### T SCR30 #### [facility] [address] [facility] [phone] HISTORY PHYSICALon HISTORY PHYSICAL HNO ID: [id number] Author: Rosemarie Landin APRN.CATARACT LENS GENERATOR Service: ? Author Type: Nurse Practitioner Type: HANDP Filed: 06/16/2021 12:34 PM Note Text: HISTORY AND PHYSICAL EXAMINATION SERVICE DATE: 06/16/2021 SERVICE TIME: 11:39 AM PRIMARY CARE PHYSICIAN: Manuela Koenig MD REASON FOR VISIT: Brenda Quintanilla is a 76 year old female who is scheduled for ARTHROPLASTY REPLACE JOINT TOTAL HIP at the request of Dr. Nato Vicente for consultation. My final recommendation will be communicated back to the requesting physician by way of shared medical record or letter. Subjective The patient has the following: ACTIVE PROBLEM LIST Other Hyperlipidemia Osteopenia Arthritis of Shoulder Region, Degenerative Primary Localized Osteoarthritis of Left Hip Shoulder Pain Ddd (Degenerative Disc Disease), Lumbar Osteoporosis Gerd (Gastroesophageal Reflux Disease) COVID-19 Immunization Status Overdue - COVID-19 VACCINE (1) Overdue - never done No completion, postpone, frequency change, or communication history exists for this topic. CHIEF COMPLAINT: Pre-Op Exam HPI: 76 year old female presents with left hip osteoarthritis. Patient states the hip has been bothersome for the past couple of years progressively getting worse. Pain is intermittent and aching in sensation. It takes her a couple of minutes to get her bearings when standing up from a sitting position. Pain interferes with sleep. Pain is relieved by taking supplements, Aleve and putting pressure on the hip. She has not received previous injections. REVIEW OF SYSTEMS: General: No weight loss, malaise or fevers. Neurological: Positive for: impaired sensorium (Occasionally in hands, shoulders are bad). Negative for: headaches, multiple sclerosis, Parkinson's disease, seizures, TIA and strokes. Respiratory: No history of current cough or dyspnea, or pneumonia in the past 6 weeks. No history of respiratory/pulmonary symptoms or problems. Cardiovascular: Positive for: hyperlipidemia Negative for: arrhythmia, atrial fibrillation, CAD, chest pain, CHF, DVT/PE, hypertension, recent NH and murmur/valvular heart disease. GI: Positive for: GERD (Mcintire and Oregano oil BID) Negative for: abdominal pain, dysphagia, diverticulitis, GI bleed <30 days, hepatitis, irritable bowel syndrome, inflammatory bowel disease, liver disease, nausea and vomiting. : Positive for: frequent urination, urinary incontinence (Occasional), nocturia >1 time per night and urgency. Negative for: dysuria, hematuria, nephrolithiasis and renal failure. 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 Endocrine: No history of diabetes. Has not taken steroids within the past 30 days. No history of endocrinological symptoms or problems. Hematology: No history of bleeding or clotting disorder. Patient is not taking anti-coagulation or platelet medications. No history of hematological symptoms or problems. Oncology: No history of CA metastasis, chemo within 30 days, or radiotherapy within 90 days. No history of oncological symptoms or problems. Psych: No history of psychiatric symptoms or problems. Musculoskeletal: Positive for: joint pain (SEE HPI, occasionally the knees). Negative for: swelling. Skin: Negative for lesions, rash and itching. PAST MEDICAL HISTORY Diagnosis Date - Arthritis of shoulder region, degenerative Bilateral - DDD (degenerative disc disease), lumbar - Degenerative arthritis of hip Left - Distal radius fracture 05/2019 - GERD (gastroesophageal reflux disease) - LVH (left ventricular hypertrophy) - Nabothian cyst - Osteoporosis - Other and unspecified hyperlipidemia - Skin cancer PAST SURGICAL HISTORY Procedure Laterality Date - COLONOSCOPY 12/27/2008 Benign appearing nodules at 15 cm from anal verge (hyperplastic polyp), few diverticula, small internal and external hemorrhoids - DANDC, DIAG AND/OR THERAPEUTIC x 2 - EGD - KNEE ARTHROSCOPY Right 2013 Torn meniscus FAMILY HISTORY Problem Relation Age of Onset - Heart Mother at 77 - Osteoporosis Mother - Heart Father - Cancer Brother Esophageal cancer, at 48 - Aneurysm Brother AAA - Breast Cancer Daughter Paternal cousin - other (Bipolar Disorder) Daughter Social History Tobacco Use - Smoking status: Former Smoker Packs/day: 1.00 Years: 30.00 Pack years: 30.00 Types: Cigarettes Quit date: 07/15/1993 Years since quittin.9 - Smokeless tobacco: Never Used Vaping Use - Vaping Use: Never used Substance Use Topics - Alcohol use: No Comment: Special occasions only - Drug use: No Prior to Admission medications as of 06/16/21 1146 Medication Sig Last Dose Taking Mcintire Oil oil Take 1 capsule by mouth twice daily. Taking Yes glucosamine/D3/boswelli a reece (RKLILFSUOHT-K8-OTGIULS IA SERR ORAL) Take 1 tablet by mouth as needed. Taking Yes vitamin E, dl,tocopheryl ac (more content not included)... Normal [facility] Iron and TIBCon 06-16-2021 Iron [Mass/Vol] 55 ug/dL Normal 41-186 [facility] Comment on above: Performed By: #### A LB, IRON, CBCDIF, RETIC #### [facility] [address] TIBC 359 ug/dL Normal 232-386 [facility] Comment on above: Performed By: #### A LB, IRON, CBCDIF, RETIC #### [facility] [address] Transferrin Saturatn 15 % Normal 15-57 [facility] Comment on above: Performed By: #### A LB, IRON, CBCDIF, RETIC #### [facility] [address] Reticulocyteon 06-16-2021 Abs Retic 0.052 M/uL Normal 0.0180-0.100 0 [facility] Comment on above: Performed By: #### A LB, IRON, CBCDIF, RETIC #### [facility] [address] [place], [place] [phone] Retic% 1.2 % Normal 0.4-2.0 [facility] Comment on above: Performed By: #### A LB, IRON, CBCDIF, RETIC #### [facility] [address] Type and SCR (30D)on 021 ABO/RH(D) Positive Normal [facility] Comment on above: Performed By: #### T SCR30 #### [facility] [address] [facility] [phone] Urinalysis with Microscopico n 06-16-2021 Bilirubin, Urine Negative Normal Negative [facility] Comment on above: Performed By: #### U AWMIC #### [facility] [employer] [facility] [phone] Clarity (U) Slightly Cloudy Critically abnormal Clear [facility] Comment on above: Performed By: #### U AWMIC #### [facility] [employer] [facility] [address] [phone] Color (U) Yellow Normal Yellow [facility] Comment on above: Performed By: #### U AWMIC #### [facility] [employer] [address] [place], [place] [phone] Comments SEE COMMENT Normal [facility] Comment on above: Result Comment: N/A Performed By: #### U AWMIC #### [facility] [employer] [address] [place], [place] [address] Crystals LM Nom (Urine sed) SEE COMMENT Critically abnormal 0 [facility] Comment on above: Result Comment: Few Calcium Oxalate Crystal Performed By: #### U AWMIC #### [facility] [employer] [address] [place], [place] [phone] Epithelial cells LM Ql (Urine sed) SEE COMMENT Normal [facility] Comment on above: Result Comment: Few Squamous Epithelial Cells Performed By: #### U AWMIC #### [facility] [employer] [facility] [address] [phone] Glucose Ql (U) Negative Normal Negative [facility] Comment on above: Performed By: #### U AWMIC #### [facility] [employer] [address] [phone] Hemoglobin/Blood,Ur Negative Normal Negative [facility] Comment on above: Performed By: #### U AWMIC #### [facility] [address] [phone] Ketones Ql (U) Trace Critically abnormal Negative [facility] Comment on above: Performed By: #### U AWMIC #### [address] [phone] [address] [place] [address] Leukest Negative Normal Negative [facility] Comment on above: Performed By: #### U AWMIC #### [address] [address] Nitrite Ql (U) Negative Normal Negative [facility] Comment on above: Performed By: #### U AWMIC #### [address] [place] [phone] pH (U) 5.0 [pH] Normal 5.0-8.0 [facility] Comment on above: Performed By: #### U AWMIC #### [address] [phone] Protein, Urine 1+ Critically abnormal Negative [facility] Comment on above: Performed By: #### U AWMIC #### [address] [phone] RBC 3-5 Critically abnormal 0-3 [facility] Comment on above: Performed By: #### U AWMIC #### [address] [phone] Specific [place], Ur 1.025 Normal 1.005-1.030 [facility] Comment on above: Performed By: #### U AWMIC #### [facility] [employer] [facility] [address] [address] Urine Delmar Comment SEE COMMENT Normal [facility] Comment on above: Result Comment: Resu lt rechecked. Performed By: #### U AWMIC #### [address] [place] [phone] Urobilinogen (U) [Mass/Vol] Negative Normal Negative [facility] Comment on above: Performed By: #### U AWMIC #### [facility] [address] [phone] WBC 0-5 Normal 0-5 [facility] Comment on above: Performed By: #### U AWMIC #### [address] [id number] [address] [place] [phone] Urine Cultureon 06-16-2021 Bacteria identified Cx Nom (U) Sp. Request/Comment: - Best Practice Alert: To ensure optimal transport conditions and accurate culture results transfer urine specimens to gloria top C and S preservative tube. Culture Result - No growth (<1,000 CFU/ml) Normal [facility] Comment on above: Performed By: #### U RCUL #### [facility] [address] [place], [place] [phone] [address] [place] [address] Vitamin B12on 06-16-2021 Cobalamin (Vitamin B12) [Mass/Vol] 447 pg/mL Normal 232-5125 [facility] Comment on above: Performed By: #### T SCR30 #### [facility] [address] [place] [phone] CNOVon 05-05-2021 CNOV Office Visit (ORMDNA ) BRENDA QUINTANILLA ([id number]) 1945 F Date Time Provider Department 05/05/21 2:15 PM NATO VICENTE During your visit today, we recorded the following information about you: Nato Vicente MD 05/05/2021 3:06 PM Signed Instructions for Blood Management Decreasing the need for blood transfusions after surgery can help your body heal faster and help your body fight infection better. Blood Management will check your blood and iron levels to see if you would benefit from having treatment to help increase your blood counts before your surgery. What do you need to do? 1. Go and have your labs (CBC, Ferritin, Iron Studies) drawn today or within the next three days at the nearest [facility] lab. If you would like, you can go today, following your appointment, to any of our outpatient labs. 2. If it is determined that you would benefit from treatment, someone from the Blood Management Department will call you. If we call you, we will then give further instructions for iron replacement. If you do not hear from Blood Management, your lab results were okay and you do not need additional iron replacement. Questions? Contact us: If you are having surgery at [facility] or If you are having surgery at [facility], [facility], [facility] Nato Vicente MD 05/15/2021 7:04 AM Signed CONSULT ORTHOPAEDIC: HIP PRIMARY CARE PHYSICIAN: Manuela Koenig MD REFERRING PROVIDER: SELF ASSESSMENT AND PLAN: Impression: Left Hip Severe Degenerative Osteoarthritis, Primary Brenda Quintanilla has radiograph and physical exam evidence of degenerative joint disease and wishes to pursue surgery. This patient appears to have sufficient symptoms to warrant surgical intervention and is an appropriate candidate for left Primary Total Hip Arthroplasty as evidenced by six months of unsuccessful non-operative treatment as outlined in the HPI below and progressive symptoms. Progressive symptoms include: Pain impacting sleep or causing fatigue Pain worsened by weight bearing Pain effecting living situation Pain limiting ability to stay fit and healthy Unable to ambulate 2 blocks without significant pain and dysfunction. We had a lengthy discussion regarding the risk and benefit of surgery, the alternatives, limitations and personnel involved. These included but were not limited to infection, persistent pain, instability, nerve injury, blood clots, and medical complications. We also discussed the pre-operative course, surgery itself and rehabilitation. Genny-operative blood management and transfusion issues were discussed, and options clearly outlined. The patient has consented to the use of the banked allogenic blood if medically necessary. The patient has elected to schedule surgery at this time or intends to call the office with a surgical date. Shared decision making occurred while obtaining informed consent. The patient will be scheduled for a pre-operative education class at which time they will have their nasal swab completed and will be given CHG cloths along with the verbal and written instructions for their use. Patient has been instructed and has been scheduled or will call to schedule attendence in one of the total joint perioperative classes offered prior to proceeding with SHANTHI.. The patient has been ordered: Anemia Screen CONSULTS: IMPACT/PACE Consult for preoperative clearance. 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 The problem began limiting activities 7-12 months ago. Currently the pain in the joint is rated at 8 out of 10 with minimal activity. The pain is chronic and constant and is located in the left groin. The pain is described as aching and sharp. Relieving factors include no relieving factors. There is no specific incident that brought about this pain. Brenda Quintanilla has no additional complaints. FUNCTIONAL STATUS: Walk indoors, such as around the house (1.75 METs) Do light work around the house, such as dusting or washing dishes (2 (more content not included)... [facility] Int[facility] 09-02-2018 PTH, Intact 39.9 pg/mL Normal 18.5-88.0 [facility] Comment on above: Performed By: #### P THI2 #### [facility] [address] [place], [place] [address] Total 25-OH Vitamin Don 08-15 Total 25-OH Vitamin D 46.0 ng/mL Normal 30.0-100.0 [facility] Comment on above: Performed By: #### 2 5VD1 #### [facility] [address] [place], [place] [address] Albumin Bloodon 09-01-2018 Albumin mass conc 3.8 g/dL Normal 3.4-5.0 [facility] Comment on above: Performed By: #### L ALB #### [facility] [address] [address] Calcium Bloodon 09-01-2018 Calcium mass conc 9.4 mg/dL Normal 8.5-10.1 [facility] Comment on above: Performed By: #### L CA #### [facility] [address] [address] Lipid Profileon 08-20-2018 Cholesterol in HDL mass conc 87 mg/dL Normal >40 [facility] Comment on above: Performed By: #### L LIPD #### [facility] [address] [address] Cholesterol in LDL mass conc 195 mg/dL High 0-150 [facility] Comment on above: Performed By: #### L LIPD #### [facility] [address] [address] Cholesterol mass conc 289 mg/dL High 0-199 [facility] Comment on above: Performed By: #### L LIPD #### [facility] [address] [place], [place] [address] Cholesterol.total/Cho lesterol in HDL mass ratio 3.3 {ratio} Normal 1.8-5.3 [facility] Comment on above: Performed By: #### L LIPD #### [place] [address] Risk Factor 3.3 Normal [facility] Comment on above: Result Comment: Card iac Risk Factor The CHD risk factor is based on the total Chol/HDL ratio. Other factors affect CHD risk such as hypertension, smoking, diabetes, severe obesity and premature CHD. Cardiac Risk Total Chol/HDL ratio Men Women 1/2 avg risk 3.4-4.9 3.3-6.3 Avg risk 5.0-9.5 6.4-7.0 2x avg risk 9.6-23.3 7.1-10.9 3x avg risk >23.4 >11.0 Performed By: #### L LIPD #### [facility] [address] [place], [place] [address] Triglyceride Blood 34 mg/dL Normal 0-149 [facility] Comment on above: Performed By: #### L LIPD #### [facility] [address] [place], [place] [address] HIP 3V PELV/AP/LAT LEFTon HIP 3V PELV/AP/LAT LEFT Performed at [facility] APPROVED BY: Martin Stokes MD EXAMINATION: LUMBAR SPINE X-RAYS (COMPLETE), PELVIS AND BILATERAL HIP X-RAYS EXAM DATE: 01/09/2018 11:23 (accession [id number]), 01/09/2018 11:24 (accession [id number]), 01/09/2018 11:36 (accession [id number]). TECHNIQUE: AP, bilateral oblique, lateral and lateral coned-down L5-S1 views of the lumbar spine were obtained. AP view of the pelvis and AP and frog-leg lateral views of both hips were obtained. HISTORY: Low back pain for 3 months. Bilateral hip pain chronically, worse on left. COMPARISON: DEXA scan 05/10/2014. Pelvis and left hip x-rays 03/26/2014. FINDINGS: Lumbar spine: There is a 2 cm curvilinear metallic structure which projects anteriorly in the abdomen, slightly to the left of midline. This is of uncertain etiology, although new from DEXA scan 05/10/2014. Clinical correlation. Decreased bone density. The vertebral bodies are normal in height and alignment. Multilevel degenerative disc space narrowing, most notably moderate narrowing at L3/4, L4/5 (moderate to advanced) and L5/S1. Mild narrowing at L1/2 and L2/3. No pars defects are evident. There is at least mild multilevel neural foraminal narrowing bilaterally. Aortic calcifications are noted. Pelvis and bilateral hips: Decreased bone density. No acute fracture, dislocation, destructive lesion or bony erosion seen. The bilateral sacroiliac joints, hip joints and pubic symphysis are intact. Advanced degenerative changes at the left hip, with advanced joint space narrowing and prominent subchondral cystic changes. These changes have mildly worsened from prior 2014 comparison. Mild degenerative changes at the right hip and pubic symphysis, with no significant change. Soft tissues are unremarkable except for mild vascular calcifications. IMPRESSION (combined): 1. Multilevel degenerative changes as above, most severely moderate to advanced disc space narrowing at L4/5. 2. 2 cm curvilinear metallic structure in the anterior abdomen of uncertain etiology, although new from prior 2013 comparison. Clinical correlation. 3. Advanced degenerative changes at the left hip, mildly worsened from the prior exam. 4. Stable mild degenerative changes at the right hip and pubic symphysis. 5. Decreased bone density. Normal [facility] HIP 3V PELV/AP/LAT RIGHTon 0 01-09-2018 HIP 3V PELV/AP/LAT RIGHT Performed at [facility] APPROVED BY: Martin Stokes MD EXAMINATION: LUMBAR SPINE X-RAYS (COMPLETE), PELVIS AND BILATERAL HIP X-RAYS EXAM DATE: 01/09/2018 11:23 (accession [id number]), 01/09/2018 11:24 (accession [id number]), 01/09/2018 11:36 (accession [id number]). TECHNIQUE: AP, bilateral oblique, lateral and lateral coned-down L5-S1 views of the lumbar spine were obtained. AP view of the pelvis and AP and frog-leg lateral views of both hips were obtained. HISTORY: Low back pain for 3 months. Bilateral hip pain chronically, worse on left. COMPARISON: DEXA scan 05/10/2014. Pelvis and left hip x-rays 03/26/2014. FINDINGS: Lumbar spine: There is a 2 cm curvilinear metallic structure which projects anteriorly in the abdomen, slightly to the left of midline. This is of uncertain etiology, although new from DEXA scan 05/10/2014. Clinical correlation. Decreased bone density. The vertebral bodies are normal in height and alignment. Multilevel degenerative disc space narrowing, most notably moderate narrowing at L3/4, L4/5 (moderate to advanced) and L5/S1. Mild narrowing at L1/2 and L2/3. No pars defects are evident. There is at least mild multilevel neural foraminal narrowing bilaterally. Aortic calcifications are noted. Pelvis and bilateral hips: Decreased bone density. No acute fracture, dislocation, destructive lesion or bony erosion seen. The bilateral sacroiliac joints, hip joints and pubic symphysis are intact. Advanced degenerative changes at the left hip, with advanced joint space narrowing and prominent subchondral cystic changes. These changes have mildly worsened from prior 2014 comparison. Mild degenerative changes at the right hip and pubic symphysis, with no significant change. Soft tissues are unremarkable except for mild vascular calcifications. IMPRESSION (combined): 1. Multilevel degenerative changes as above, most severely moderate to advanced disc space narrowing at L4/5. 2. 2 cm curvilinear metallic structure in the anterior abdomen of uncertain etiology, although new from prior 2013 comparison. Clinical correlation. 3. Advanced degenerative changes at the left hip, mildly worsened from the prior exam. 4. Stable mild degenerative changes at the right hip and pubic symphysis. 5. Decreased bone density. Normal [facility] LUMBOSACRAL SPINE MIN 4 VIEW Son 01-09-2018 LUMBOSACRAL SPINE MIN 4 VIEWS Performed at [facility] APPROVED BY: Martin Stokes MD EXAMINATION: LUMBAR SPINE X-RAYS (COMPLETE), PELVIS AND BILATERAL HIP X-RAYS EXAM DATE: 01/09/2018 11:23 (accession [id number]), 01/09/2018 11:24 (accession [id number]), 01/09/2018 11:36 (accession [id number]). TECHNIQUE: AP, bilateral oblique, lateral and lateral coned-down L5-S1 views of the lumbar spine were obtained. AP view of the pelvis and AP and frog-leg lateral views of both hips were obtained. HISTORY: Low back pain for 3 months. Bilateral hip pain chronically, worse on left. COMPARISON: DEXA scan 05/10/2014. Pelvis and left hip x-rays 03/26/2014. FINDINGS: Lumbar spine: There is a 2 cm curvilinear metallic structure which projects anteriorly in the abdomen, slightly to the left of midline. This is of uncertain etiology, although new from DEXA scan 05/10/2014. Clinical correlation. Decreased bone density. The vertebral bodies are normal in height and alignment. Multilevel degenerative disc space narrowing, most notably moderate narrowing at L3/4, L4/5 (moderate to advanced) and L5/S1. Mild narrowing at L1/2 and L2/3. No pars defects are evident. There is at least mild multilevel neural foraminal narrowing bilaterally. Aortic calcifications are noted. Pelvis and bilateral hips: Decreased bone density. No acute fracture, dislocation, destructive lesion or bony erosion seen. The bilateral sacroiliac joints, hip joints and pubic symphysis are intact. Advanced degenerative changes at the left hip, with advanced joint space narrowing and prominent subchondral cystic changes. These changes have mildly worsened from prior 2013 comparison. Mild degenerative changes at the right hip and pubic symphysis, with no significant change. Soft tissues are unremarkable except for mild vascular calcifications. IMPRESSION (combined): 1. Multilevel degenerative changes as above, most severely moderate to advanced disc space narrowing at L4/5. 2. 2 cm curvilinear metallic structure in the anterior abdomen of uncertain etiology, although new from prior 2013 comparison. Clinical correlation. 3. Advanced degenerative changes at the left hip, mildly worsened from the prior exam. 4. Stable mild degenerative changes at the right hip and pubic symphysis. 5. Decreased bone density. Normal [facility] Vital Signs Date Time Vital Sign Value Performing Clinician Facility 05-06-2023 14:31-0400 Body height 152.[address] Esteban Casey Work Phone: [facility] 05-06-2023 14:31-0400 Body mass index (BMI) [Ratio] 28.7 kg/m2 Dr. Esteban Casey Work Phone: [facility] 05-06-2023 14:31-0400 Body weight 66.[address] Esteban Casey Work Phone: [facility] 05-06-2023 14:31-0400 Diastolic blood pressure 74 mm[Hg] Dr. Esteban Casey Work Phone: [facility] 05-06-2023 14:31-0400 Heart rate 83 /min Dr. Esteban Casey Work Phone: [facility] 05-06-2023 14:31-0400 Respiratory rate 14 /min Dr. Esteban Casey Work Phone: [facility] 05-06-2023 14:31-0400 Systolic blood pressure 126 mm[Hg] Dr. Estebna Casey Work Phone: [facility] NEGATED: Highlighted [id number] 15:16-0400 Body height 154.94 cm Blanca Kunz AT [facility] Work Phone: NEGATED: Highlighted [id number] 15:16-0400 Body height 155 cm Blanca Pavick AT [facility] Work Phone: NEGATED: Highlighted [id number] 15:16-0400 Body mass index (BMI) [Ratio] 25.6 kg/m2 Blanca Pavick AT [facility] Work Phone: NEGATED: Highlighted [id number] 15:16-0400 Body weight 61.24 kg Blanca Pavick AT [facility] Work Phone: NEGATED: Highlighted [id number] 15:16-0400 Body weight 61 kg Blanca Pavick AT [facility] Work Phone: Encounters Encounter Date Encounter Type Care Provider Facility Start: 12-18-2024 ambulatory Esteban Chi Ashley Facility:[facility] Start: 06-30-2024 End: 06-30-2024 ambulatory Esteban Chi Ashley Facility:[facility] Start: 06-17-2024 End: 06-17-2024 Emergency department patient visit Esteban Chi Ashley Facility:[facility] Start: 05-12-2024 End: 05-12-2024 ambulatory Esteban Chi Ashley [facility] Start: 01-08-2024 End: 01-08-2024 ambulatory Esteban Chi Ashley Facility:[facility] Start: 06-10-2023 Non-patient / Non-visit Dr. Juan Casey Work Phone: [facility] Work Phone: Start: 06-10-2023 Non-patient / Non-visit Dr. Juan Casey Work Phone: [facility] Start: 06-10-[address] Esteban Casey Work Phone: [facility]Cardi[facility] Work Phone: Start: 06-09-2023 Non-patient / Non-visit Dr. Juan Casey Work Phone: [facility] Start: 06-05-2023 End: 06-05-[address] Esteban Casey Work Phone: [facility] Work Phone: Start: 06-05-2023 End: 06-05-[address] [facility] Work Phone: Start: 05-21-2023 End: 05-21-[address] Esteban Casey Work Phone: [facility] Work Phone: Start: 05-21-2023 End: 05-21-[address] [facility] Casey [facility] Work Phone: Start: 05-06-2023 End: 05-06-[address] Esteban Casey Work Phone: [facility] Work Phone: Start: 03-21-2023 Non-patient / Non-visit Dr. Juan Casey Work Phone: [facility] Start: 03-21-2023 End: 03-21-[address] Esteban Casey Work Phone: [facility] Work Phone: Start: 03-21-2023 End: 03-21-[address] [facility]eban Casey [facility] Work Phone: Start: 12-12-2022 Non-patient / Non-visit Dr. Juan Casey Work Phone: [facility] Start: 12-12-2022 End: 12-12-[address] Esteban Casey Work Phone: [facility] Work Phone: Start: 12-12-2022 End: 12-12-[address] Esteban Casey Work Phone: [facility]-Outpatient Breast Imaging Work Phone: Start: 11-30-2022 End: 11-30-2022 ambulatory [facility] Work Phone: Start: 11-30-2022 End: 11-30-2022 Patient encounter procedure [facility]-Laboratory, Phy Office 3rd Flr Start: 11-24-2021 End: 11-24-2021 [facility] Start: 11-16-2021 End: 11-16-2021 Patient encounter procedure [facility] Start: 09-01-2018 Patient encounter procedure MANUELA Lee SONA [facility] Start: 08-20-2018 Patient encounter procedure MERLY GLASS [facility] Procedures Date Procedure Procedure Detail Performing Clinician Start: 06-10-2023 Radionuclide imaging of perfusion of myocardium under exercise stress Dr. Esteban Casey Work Phone: Start: 06-05-2023 CT angiography of coronary arteries Dr. Esteban Casey Work Phone: Start: 05-21-[address] Esteban angel Work Phone: Start: 12-12-2022 Screening mammography Yrn Casey Work Phone: Start: 11-16-2021 Screening mammography Start: 10-25-2021 End: 10-25-2021 BP scrn no perf at interval David Madsen MD Work Phone: Start: 10-25-2021 End: 10-25-2021 Calc BMI abv up williams f/u David Madsen MD Work Phone: Start: 10-25-2021 End: 10-25-2021 Current tobacco non-user cad cap copd pv dm David Madsen MD Work Phone: Start: 10-25-2021 End: 10-25-2021 Docrev cur meds by vish Madsen MD Work Phone: Start: 10-25-2021 End: 10-25-2021 No doc of pain David Pemberton i, MD Work Phone: Start: 10-25-2021 End: 10-25-2021 Osteoarthritis symptoms&funcjal status asses David Madsen MD Work Phone: Start: 10-25-2021 End: 10-25-2021 Patient encounter procedure David Madsen MD Work Phone: Start: 06-16-2021 Antibody screen Comment on above: Performed By: #### T [id number] #### [facility] [address] [place] [address] H/O: surgery H/O dilation and curettage NEGATED: Highlighted rowStart: 10-25-2021 End: 10-25-2021 Documentation of current medications Balnca Kunz AT Plan of Treatment Date Care Activity Detail Author Start: 10-25-2021 End: 10-25-2021 Patient encounter procedure Appointment [facility] Work Phone: Radionuclide imaging of perfusion of myocardium under exercise stress [facility] US Carotid arteries [facility] Payers Date Payer Category Payer Self-pay [id number] 2024 Unknown [id number] Private Health Insurance 101 [id number] Unknown [facility] [employer] [id number] Unknown [id number] Unknown [id number] Unknown [id number] Unknown [id number] Unknown [id number] Social History Date Type Detail Facility Start: 08-28-2019 End: 05-06-2023 Assertion Unknown if ever smoked [facility] Work Phone: Start: 1945 Sex Assigned At Female [place] Procedure note 05-21-2023 Note Date & Type Note Facility 05-21-2023 Procedure note [facility] Instructions 10-25-2021 Note Date & Type Note Facility 10-25-2021 Instructions Patient advised to follow-up with Primary Care Physician for BMI management. [facility] Work Phone: Progress note 06-27-2021 Note Date & Type Note Facility 06-27-2021 Note HNO ID: [id number] Author: Nato Vicente MD Service: ? Author Type: Physician Type: Progress Notes Filed: 06/26/2021 10:10 PM Note Text: DEPARTMENT OF ORTHOPAEDICS CHIEF COMPLAINT: Bilateral shoulder pain HISTORY OF PRESENT ILLNESS: This is a pleasant 76 year old female, who presents today with a chief complaint of right>left shoulder pain. She complains of sharp pain about the anterior and medial aspect of approximately several years duration. This pain is constant. She denies recent trauma. She complains that the pain is 8. She denies nocturnal pain. The pain is exacerbated by overhead activities and reaching. Previous treatments have included OTC medicaiton. She denies proximal radiation. She reports distal radiation. She denies numbness, tingling, or electric shocks. She reports grinding. She denies swelling, mass, warmth, fevers, chills, sweats, adenopathy, fatigue, weight gain, weight loss, and shortness of breath. PAIN EVALUATION 06/16/2021 0934 Pain Level: 8 Pain Location: Shoulder-Right Description: Sharp Duration Amount of Time: ? ongoing Frequency: Continuous Intervention/Comfort measure: Positioning;Medication PAST MEDICAL HISTORY Diagnosis Date - Arthritis of shoulder region, degenerative Bilateral - DDD (degenerative disc disease), lumbar - Degenerative arthritis of hip Left - Distal radius fracture 05/2019 - GERD (gastroesophageal reflux disease) - LVH (left ventricular hypertrophy) - Nabothian cyst - Osteoporosis - Other and unspecified hyperlipidemia - Skin cancer PAST SURGICAL HISTORY Procedure Laterality Date - COLONOSCOPY 12/27/2008 Benign appearing nodules at 15 cm from anal verge (hyperplastic polyp), few diverticula, small internal and external hemorrhoids - DANDC, DIAG AND/OR THERAPEUTIC x 2 - EGD - KNEE ARTHROSCOPY Right 2014 Torn meniscus Current Outpatient Medications Medication Sig Dispense Refill - [START ON 07/01/2021] mupirocin (BACTROBAN) 2 % ointment Apply 1/2 inch of ointment with a Q-tip to both nostrils in the morning and afternoon for 5 consecutive days before surgery Do not use on the morning of your COVID swab, resume afterwards 15 g 0 - Mcintire Oil oil Take 1 capsule by mouth twice daily. - glucosamine/D3/boswellia reece ([id number]-N3-QQPEHCNOE SERR ORAL) Take 1 tablet by mouth as needed. - vitamin E, dl,tocopheryl acet, (VITAMIN E, DL, ACETATE,) 400 unit capsule Take 400 Units by mouth as needed. - methylsulfonylmethane (MSM ORAL) Take 4-8 g by mouth once daily. - Miralax / Gatorade Prep Miralax 238 gm bottle and (2) 32 oz bottles of Gatorade AND 4 Dulcolax 5 mg tabs- as directed per instructions (Patient not taking: Reported on 05/05/2021 ) - Ascorbic Acid (VITAMIN C) 1,000 mg tablet Take 1,000 mg by mouth once daily. - LECITHIN GRANULES ORAL Take 1 Tablespoonful by mouth once daily. - Cholecalciferol, Vitamin D3, (VITAMIN D-3) 2,000 unit cap Take 2,000 Units by mouth twice daily. - VITAMIN K2 ORAL Take 47,100 mcg by mouth once daily. - Garlic 500 mg cap Take 500 mg by mouth once daily. - COQ10, UBIQUINOL, ORAL Take 200 mg by mouth as needed. No current facility-administered medications for this visit. ALLERGIES No Known Allergies FAMILY HISTORY Problem Relation Age of Onset - Heart Mother at 77 - Osteoporosis Mother - Heart Father - Cancer Brother Esophageal cancer, at 48 - Aneurysm Brother AAA - Breast Cancer Daughter Paternal cousin - other (Bipolar Disorder) Daughter Social History Tobacco Use - Smoking status: Former Smoker Packs/day: 1.00 Years: 30.00 Pack years: 30.00 Types: Cigarettes Quit date: 07/15/1993 Years since quittin.9 - Smokeless tobacco: Never Used Vaping Use - Vaping Use: Never used Substance Use Topics - Alcohol use: No Comment: Special occasions only - Drug use: No Hand Dominance: right handed Occupation: retired Activity level: recreational, sport/activity: none REVIEW OF SYSTEMS: GENERAL: negative for malaise, significant weight loss, night sweats and fever HEENT: No changes in hearing or vision, no nose bleeds or other nasal problems., No trouble swallowing RESPIRATORY: Negative for cough, wheezing and shortness of breath CARDIOVASCULAR: Negative for chest pain, leg swelling, palpitations, orthopnea GI: Negative for abdominal discomfort, hematochezia, melena, hematemesis, change in bowel habits, diarrhea, constipation, nausea or vomiting. MUSCULOSKELETAL: See HPI. PSYCH: Negative for sleep disturbance, mood disorder and recent psychosocial stressors. HEMATOLOGY Negative for prolonged bleeding, bruising easily, and swollen nodes. ENDOCRINE: Negative for cold or heat intolerance, polyuria, polydipsia and goiter. NEURO: negative for lightheadedness, dizziness, tremor, gait imbalance, syncope and seizures. RADIOGRAPHS: Last XR Shoulder - Impression Only XR SHOULDER (more content not included)... [facility] Progress note 05-15-2021 Note Date & Type Note Facility 05-15-2021 Note HNO ID: [id number] Author: Nato Vicente MD Service: ? Author Type: Physician Type: Progress Notes Filed: 05/15/2021 7:04 AM Note Text: CONSULT ORTHOPAEDIC: HIP PRIMARY CARE PHYSICIAN: Manuela Koenig MD REFERRING PROVIDER: SELF ASSESSMENT AND PLAN: Impression: Left Hip Severe Degenerative Osteoarthritis, Primary Brenda Quintanilla has radiograph and physical exam evidence of degenerative joint disease and wishes to pursue surgery. This patient appears to have sufficient symptoms to warrant surgical intervention and is an appropriate candidate for left Primary Total Hip Arthroplasty as evidenced by six months of unsuccessful non-operative treatment as outlined in the HPI below and progressive symptoms. Progressive symptoms include: Pain impacting sleep or causing fatigue Pain worsened by weight bearing Pain effecting living situation Pain limiting ability to stay fit and healthy Unable to ambulate 2 blocks without significant pain and dysfunction. We had a lengthy discussion regarding the risk and benefit of surgery, the alternatives, limitations and personnel involved. These included but were not limited to infection, persistent pain, instability, nerve injury, blood clots, and medical complications. We also discussed the pre-operative course, surgery itself and rehabilitation. Genny-operative blood management and transfusion issues were discussed, and options clearly outlined. The patient has consented to the use of the banked allogenic blood if medically necessary. The patient has elected to schedule surgery at this time or intends to call the office with a surgical date. Shared decision making occurred while obtaining informed consent. The patient will be scheduled for a pre-operative education class at which time they will have their nasal swab completed and will be given CHG cloths along with the verbal and written instructions for their use. Patient has been instructed and has been scheduled or will call to schedule attendence in one of the total joint perioperative classes offered prior to proceeding with SHANTHI.. The patient has been ordered: Anemia Screen CONSULTS: IMPACT/PACE Consult for preoperative clearance. 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 The problem began limiting activities 7-12 months ago. Currently the pain in the joint is rated at 8 out of 10 with minimal activity. The pain is chronic and constant and is located in the left groin. The pain is described as aching and sharp. Relieving factors include no relieving factors. There is no specific incident that brought about this pain. Brenda Quintanilla has no additional complaints. FUNCTIONAL STATUS: Walk indoors, such as around the house (1.75 METs) Do light work around the house, such as dusting or washing dishes (2.70 METs) Take care of self, that is eating, dressing, bathing, using the toilet (2.75 METs) Total Joint Arthroplasty: Risk Calculator Brenda Quintanilla has a 23.5% chance of NOT returning home at discharge for a Primary total Hip replacement. Brenda's estimated Length of Stay is 2 days. Estimated LOS 2 days Discharge Disposition Probability D/C to Home 76.5 % D/C to SNF 23.5 % These calculations are based on the following factors: - 76 years of age - sex is not male - BMI of 25.97 kg/m2 - no history of heart disease - no history of diabetes - no history of COPD - preoperative ambulation: impaired community distances - 3 step(s) to enter home - bed location is on the first floor - bath location is on the first floor - caregiver is consistent - home is not more than 150 miles away PREVIOUS TREATMENTS: Physical Therapy: Activities Modified and PT Three Months or Greater 1-2 times per week REVIEW OF SYSTEMS: PAIN ASSESSMENT: See HPI. MUSCULOSKELETAL: See HPI. Risk Factors for Total Joint Arthroplasty (TJA) Obesity Unknown Risk High: BMI > 40 Moderate: BMI 30-40 Normal: BMI < 30 Diabetes normal High: A1C > 8 Moderate: A1C 7-8 Normal: A1C < 7 Smoking normal High: Current smoker Normal: Non smoker Anemia High Risk High: Hgb < 11.5 (women) N/A: Hgb >= 11.5 (women) Nutritional Status normal High: Alb<3.4, or preal (more content not included)... [facility] Progress note 05-09-2021 Note Date & Type Note Facility 05-09-2021 Note HNO ID: [id number] Author: Stephanie Bone RN Service: ? Author Type: Registered Nurse Type: Progress Notes Filed: 05/09/2021 10:56 AM Note Text: Patient referred to Blood Management for pre-surgical optimization. Current and complete lab data unavailable. Unable to complete evaluation. [facility] Clinical Note 09-01-2020 Note Date & Type Note Facility 09-01-2020 Note Patient Outreach ([facility]) BRENDA QUINTANILLA ([id number]) 1945 F Date Time Provider Department 09/01/20 SAUL BEGUM During your visit today, we recorded the following information about you: Allergies As of Date: 09/01/2020 (No Known Allergies) Date Reviewed: 01/29/2019 Reviewed by: Rosemarie Moody Ma - Fully Assessed Order(s):SARS-COVID VACCINE 1ST DOSE APPT [[id number]] Order #: [id number] FUTURE Prescriptions as of 09/01/2020 Sig: [employer] ORAL Take by mouth once daily. [id number] SERR* Take by mouth once daily. VITAMIN E (DL, ACETATE) 400 U* Take 400 Units by mouth once * MSM ORAL Take by mouth. Takes 4 to 8 g* CREATININE (BULK) 100 % POWDER as needed. COMPOUNDED PRESCRIPTION Miralax 238 gm bottle and (2)* ASCORBIC ACID (VITAMIN C) 1,0* Take 1,000 mg by mouth once d* LECITHIN GRANULES ORAL Take 1 Tablespoonful by mouth* CHOLECALCIFEROL (VITAMIN D3) * Take 2,000 Units by mouth onc* VITAMIN K2 ORAL Take 47,100 mcg by mouth once* GARLIC 500 MG CAPSULE Take 500 mg by mouth once ori* COQ10 (UBIQUINOL) ORAL Take 200 mg by mouth once ori* Problem List As Of Date 09/01/2020 Noted Resolved Other hyperlipidemia [E78.49] 03/26/2014 Osteopenia [M85.80] 03/26/2014 Arthritis of shoulder region, degenerative [M19*03/30/2014 Degenerative arthritis of hip [M16.9] 03/30/2014 Shoulder pain [M25.519] 04/05/2014 Shoulder stiffness [M25.619] 04/05/2014 12/20/2016 DDD (degenerative disc disease), lumbar [M51.36] Osteoporosis [M81.0] Letter Text Encounter Status:Closed by ELLIS AMOS on 09/05/20 [facility] Evaluation note Note Date & Type Note Facility Evaluation note There may be informa tion available, but it has not been provided by the sender. [facility] Work Phone: Evaluation note Note Date & Type Note Facility Evaluation note No assessment information availa ble [facility] Work Phone: Evaluation note Note Date & Type Note Facility Evaluation note Diagnosis Onset Date Chest pain on exertion acute Hyperlipidemia chronic [facility] Work Phone: Summary Purpose Family History No Family History Records Found Relationship Condition Age at Onset Recorded Date/T jarret mother Cardiac disease Unknown Osteoporosis Unknown father Cardiac disease Unknown brother Malignant neoplasm of esophagus Unknown Relationship Condition Age at Onset Recorded Date/T jarret mother Cardiac disease Unknown Osteoporosis Unknown Asthma Unknown father Cardiac disease Unknown brother Malignant neoplasm of esophagus Unknown Acute febrile neutrophilic dermatosis Unk nown Advance Directives No Advanced Directives Records FoundNo Advanced Directives Records FoundNo Advanced Directives Records FoundNo Advanced Directives Records FoundThere may be information available, but it has not been provided by the sender.No Advanced Directives Records Found Chief Complaint Chief Complaint Description Start Date left hip post LEFT TOTAL HIP ARTHROPLASTY DIRECT ANTERIOR APPROACH on 08/22/2021 Preliminary chief co mplaint data, not yet signed by the author as of Chief Complaint and Reason for Visit Chief Complaint SCREENING Chief Complaint SCREENING CHEST PAIN Chief Complaint CHEST PAIN FAM HX OF HEART DISEASE / CP (ASHLEY) DYSPHAGIA Reason for Visit Chest pain on exerti on Hyperlipidemia Chief Complaint CHEST PAIN FAM HX OF HEART DISEASE / CP (ASHLEY) DYSPHAGIA E78.5 Hyperlipidemia, unspecified E78.5 Hyperlipidemia, unspecified CP; BRUIT CP; BRUIT Amb Documentation Reason for Visit Chest pain on exerti on Hyperlipidemia Additional Source Comments INFORMATION SOURCE (unrecogn ized section and content) DATE CREATED AUTHOR 09/02/2018 [facility] DATE CREATED AUTHOR AUTHOR'S ORGANIZ ATION 09/03/2018 [facility] DATE CREATED AUTHOR AUTHOR'S ORGANIZ ATION 06/24/2021 [facility] DATE CREATED AUTHOR AUTHOR'S ORGANIZ ATION 08/06/2021 [facility] DATE CREATED AUTHOR AUTHOR'S ORGANIZ ATION 12/16/2024 [facility] Reason for Visit (unrecogniz ed section and content) Reason For Visit Description Postop - subsequent visit Preliminary reason f or visit data, not yet signed by the author as of left hip post LEFT TOTAL HIP ARTHROPLASTY DIRECT ANTERIOR APPROACH on 08/22/2021 Goals (unrecognized section and content) Goals may be documented in a n alternate sectionGoals may be documented in an alternate sectionGoals may be documented in an alternate sectionGoals may be documented in an alternate sectionGoals may be documented in an alternate sectionGoals may be documented in an alternate sectionGoals may be documented in an alternate section Care Teams (unrecognized sec tion and content) Team Status: Active Member Role Status Dates MANUELA KOENIG [facility] Provider Active Dr. Esteban Casey MD Primary Care Provider Active Team Status: Inactive Member Role Status Dates Dr. Esteban Casey MD Primary Care Provider, Attending Provider Active Team Status: Active Member Role Status Dates Dr. Esteban Casey MD Primary Care Provider Active Dr. Clif Hartman MD Attending Provider Active Team Status: Inactive Member Role Status Dates Dr. Esteban Casey MD Primary Care Provi jensen, Attending Provider, Referring Provider Active Team Status: Active Member Role Status Dates Dr. Esteban Casey MD Primary Care Provider Active Dr. Edgar Tucker MD Attending Provider Active Team Status: Inactive Member Role Status Dates Dr. Esteban Casey MD Primary Care Provider, Referring Provider Active Dr. Edgar Tucker MD Attending Provider Active Team Status: Active Member Role Status Dates Dr. Esteban Casey MD Primary Care Provider Active Dr. Edgar Tucker MD Attending Provider, Referring Provider, Other Provider Active Team Status: Active Member Role Status Dates Dr. Esteban Casey MD Primary Care Provider Active Manuela Joe RETORT CONDENSER ATTENDANT, RETORT CONDENSER ATTENDANT-C Attending Provider Active Team Status: Active Member Role Status Dates Dr. Esteban Casey MD Primary Care Provider Active Dr. Edgar Tucker MD Attending Provider, Referring Pro vider Active Team Status: Inactive Member Role Status Dates Dr. Esteban Casey MD Primary Care Provider Active Dr. Edgar Tucker MD Attending Provider, Referring Pro vider Active FOR RECORDS PERTAINING TO PATIENTS WHO ARE OR HAVE BEEN ENROLLED IN A CHEMICAL DEPENDENCY/SUBSTANCEABUSE PROGRAM, SOME INFORMATION MAY BE OMITTED. This clinical summary was aggregated from multiple sources. Caution should be exercised in using it in the provision of clinical care. This summary normalizes information from multiple sources, and as a consequence, information in this document may materially change the coding, format and clinical context of patient data. In addition, data may be omitted in some cases. CLINICAL DECISIONS SHOULD BE BASED ON THE PRIMARY CLINICAL RECORDS. [facility] [employer] [facility]. provides no warranty or guarantee of the accuracy or completeness of information in this document.
== END | disposition home or self-care (01) ==
LOC: OPBI 09:52
PROVIDERS: PCP Family Medicine Geriatric Medicine; Referring Provider Family Medicine Geriatric Medicine; Visit Provider Family Medicine Geriatric Medicine
DX: Z12.31 Encounter for screening mammogram for malignant neoplasm of breast (principal)
CPT/HCPCS: 77063; 77067

== ENCOUNTER → 2025-01-26 | Outpatient (CLI) | payer MEDICARE, SELFPAY ==
[2025-01-26 10:32] LABS: Hematocrit 38.9 % (37-47); Hemoglobin 12.4 g/dL (12.0-15.0); Immature Granulocytes Count 0.010 X10^3/uL (0.0-0.0); Mean Corp Hgb Conc 31.9 g/dL (32-36); Mean Corpuscular Volume 86.6 fL (81-99); Mean Platelet Vol. 9.2 fl (6.2-12.0); NRBC Flagged by Analyzer 0 % (0-5); Platelet Count 334 K/mm3 (150-450); RBC Distribution Width CV 12.9 % (11.6-14.6); RBC Distribution Width SD 40.9 fl (35.1-43.9); Red Blood Count 4.49 M/mm3 (4.2-5.4); White Blood Count 4.4 K/mm3 (4.4-11.0)
[2025-01-26 11:11] LABS: AST(SGOT) 31 U/L (<=31); Alanine Aminotransfer ALT/SGPT 23 U/L (<=34); Albumin, Serum 4.2 g/dL (3.4-4.8); Alkaline Phosphatase 99 U/L (35-104); Anion Gap 11 (5-15); BUN 14 mg/dL (4-19); BUN/Creat Ratio 21.7 RATIO (10-20); Calcium,Total 9.6 mg/dL (7.6-11.0); Carbon Dioxide 25.3 mmol/L (21.0-32.0); Chloride 103 mmol/L (98-108); Globulin 2.9 g/dL (2.2-4.2); Glucose 102 mg/dL (70-99); Potassium 4.1 mmol/L (3.3-5.1); Vitamin D,25 Hydroxy 43.4 ng/mL (30-100)
[2025-01-26 18:00] LABS: Xtra Tube Kwok EXTRA TUBE
== END | disposition home or self-care (01) ==
LOC: POLAB3 10:15
PROVIDERS: PCP Family Medicine Geriatric Medicine; Visit Provider Family Medicine Geriatric Medicine
DX: I10 Essential (primary) hypertension (principal); E55.9 Vitamin D deficiency, unspecified
CPT/HCPCS: 36415; 80053; 82306; 84443; 85025